=== PATIENT | male | born 1950 | race Caucasian/White ===

== ENCOUNTER 2017-06-20 22:27 | Inpatient (IN) | payer MEDICARE, OTHER ==
--- NOTE | 2017-06-20 22:48 | ED Physician Chart ---
ED Chief Complaint/HPI - Patient Information Date Seen:: 06/20/17 Time Seen:: 10:30 Chief Complaint:: Agitation History of Present Illness:: onset x one day of agitation and inappropriate behavior; no report of trauma, H/ As, neck pain, C/P, SOB, Abd. Pain, A/N/V/D/C, fever, chills, SIs, or urinary s/ s Allergies:: Allergies Allergy/AdvReac Type Severity Reaction Status Date / Time No Known Allergies Allergy Verified 06/20/17 22:36 Historian:: Patient, EMS Review:: Nurse's Note Reviewed, Old Chart Reviewed, EMS run form Reviewed ED Review of Systems - Review of Systems General/Constitutional: No fever, No chills, No weight loss, No weakness, No diaphoresis, No edema, No loss of appetite Skin: No skin lesions, No rash, No bruising Head: No headache, No light-headedness Eyes: No loss of vision, No pain, No diplopia ENT: No earache, No nasal drainage, No sore throat, No tinnitus Neck: No neck pain, No swelling, No thyromegaly, No stiffness, No mass noted Cardio Vascular: No chest pain, No palpitations, No PND, No orthopnea, No edema Pulmonary: No SOB, No cough, No sputum, No wheezing GI: No nausea, No vomiting, No diarrhea, No pain, No melena, No hematochezia, No constipation, No hematemesis G/U: No dysuria, No frequency, No hematuria, No nacturia Musculoskeletal: No bone or joint pain, No back pain, No muscle pain Endocrine: No polyuria, No polydipsia Psychiatric: Prior psych history, No depression, Anxiety, No suicidal ideation, No homicidal ideation, No auditory hallucination, No visual hallucination Hematopoietic: No bruising, No lymphadenopathy Allergic/Immuno: No urticaria, No angioedema Neurological: No syncope, No focal symptoms, No weakness, No paresthesia, No headache, No seizure, No dizziness, No confusion, No vertigo ED Past Medical History - Past Medical History Obtainable: Yes Past Medical History: HTN, DM, Dyslipidemia Family History: Diabetes Melitus, HTN Social History: Non Smoker, No Alcohol, No Drug Use, Single, Care Facility Surgical History: None Psychiatricy History: Bipolar Medication: Reviewed Family Medical History - Family Member Mother History Unknown: Yes Age: 67 Ethnicity: Hx Family Cancer: No Hx Family Coronary Artery Disease: No Hx Family Congestive Heart Failure: No Hx Family Hypertension: Yes Hx Family Stroke: No Hx Family Diabetes: Yes Hx Family Seizures: No Hx Family Dementia: Yes Hx Family AIDS: (UNKNOWN) Hx Family HIV: No Hx Family COPD: No Hx Family Hepatitis: No Hx Family Psychiatric Problems: (UNKNOWN) Hx Family Tuberculosis: No ED Physical Exam - Physical Examination General/Constitutional: Awake, Well-developed, well-nourished, Alert, No distress, GCS 15, Non-toxic appearing, Ambulatory Head: Atraumatic Eyes: Lids, conjuctiva normal, PERRL, EOMI Skin: Nl inspection, No rash, No skin lesions, No ecchymosis, Well hydrated, No lymphadenopathy ENMT: External ears, nose nl, TM canals nl, Nasal exam nl, Lips, teeth, gums nl , Oropharynx nl, Tonsils nl Neck: Nontender, Full ROM w/o pain, No JVD, No nuchal rigidity, No bruit, No mass, No stridor Respiratory: Nl effort/Exclusion, Clear to Auscultation, No Wheeze/Rhonchi/Rales Cardio Vascular: RRR, No murmur, gallop, rubs, NL S1 S2, Carotid/Femoral/Distal pulses equal bilaterally GI: No tenderness/rebounding/guarding, No organomegaly, No hernia, Normal BS's, Nondistended, No mass/bruits, No McBurney tenderness : No CVA tenderness Extremities: No tenderness or effusion, Full ROM, normal strength in all extremities, No edema, Normal digits & nails Neuro/Psych: Alert/oriented, DTR's symmetric, Normal sensory exam, Normal motor strength, Judgement/insight normal, Mood normal, Normal gait, No focal deficits Other Neuro/Psych comments:: + Psychomotor Agitation; no SIs; Mood/Affect: Labile Misc: Normal back, No paraspinal tenderness ED Labs/Radiology/EKG Results - Lab Results Comments:: Glucose: 261; Na+: 132 - EKG Interpretations EKG Time:: 23:00 Rate & Rhythm: 64; NSR Comments:: non-specific st-t changes ED Septic Shock - . Is Septic Shock (SBP<90, OR Lactate>4 mmol\L) present?: No ED Reassessment (Disposition) - Reassessment Reassessment Condition:: Improved - Diagnosis Diagnosis:: Dx: DM; Hyperglycemia; Hyponatremia; Agitation; Psychosis; Medical Clearance; Bipolar Disorder - Aftercare/Follow up Instructions Aftercare/Follow-Up Instructions:: Counseled pt regarding lab results/diagnosis & need follow up, Counseled pt & family regarding lab results/diagnosis & need follow up - Patient Disposition Discharge/Transfer:: Acute Care w/in this hosp Admitted to:: [facility] Condition at Disposition:: Stable, Improved ED Discharge Plan - Patient Disposition Admit/Discharge/Transfer: Other Care w/in this hosp Condition at Disposition: Unchanged
[2017-06-20 23:02] LABS: % BASOPHILS 0.3 % (0.0-2.0); % EOSINOPHILS 3.6 % (0.0-5.0); % LYMPHOCYTES 20.4 % (20.0-50.0); % MONOCYTES 3.7 % (2.0-10.0); EOSINOPHILE ABSOLUTE 0.4 Th/cmm (0.1-0.4); HEMATOCRIT 44.6 % (41.0-60); HEMOGLOBIN 14.7 gm/dL (12-16); LYMPHOCYTE ABSOLUTE 2.2 Th/cmm (1.5-3.0); MEAN CELL VOLUME 82.3 fl (80-99); MEAN CORPUSCULAR HEMOGLOBIN 27.1 pg (27.0-31.0); MEAN CORPUSCULAR HGB CONC 32.9 pg (28.0-36.0); MEAN PLATELET VOLUME 6.8 fl; MONOCYTE ABSOLUTE 0.4 Th/cmm (0.3-1.0); NEUTROPHILE ABSOLUTE 7.7 Th/cmm (1.8-8.0); PLATELET COUNT 346 Th/cmm (150-400); RED BLOOD COUNT 5.42 Mil/cmm (3.80-5.80); RED CELL DISTRIBUTION WIDTH 13.3 % (11.5-20.0); WHITE BLOOD COUNT 10.7 Th/cmm (4.8-10.8)
[2017-06-20 23:20] LABS: ACETAMINOPHEN < 10.0 ug/mL (10.0-30.0); ALB/GLOB RATIO 1.3 (1.0-1.8); ALBUMIN 3.6 gm/dL (4.2-5.5); ALKALINE PHOSPHATASE 80 U/L (34-104); ANION GAP 9.7 (7.0-16.0); BILIRUBIN,TOTAL 0.6 mg/dL (0.3-1.0); BUN - UREA NITROGEN 12 mg/dL (7-25); CALCIUM SERUM 9.1 mg/dL (8.6-10.3); CARBON DIOXIDE 25.3 mEq/L (21.0-31.0); CHLORIDE 101 mEq/L (98-107); CHOLESTEROL 174 mg/dL (<200); CREATININE - SERUM 0.8 mg/dL (0.7-1.3); GFR AFRICAN-AMERICAN > 60.0 ml/min (>90); GFR NON AFRICAN-AMERICAN > 60.0 ml/min; GLUCOSE 261 mg/dL (70-105); HDL -HIGH DENSITY LIPOPROTEIN 42 mg/dL (23-92); SALICYLATES (ASPIRIN) < 25.0 mg/L (30.0-100.0); SGOT 7 U/L (13-39); SGPT/ALT 9 U/L (7-52); SODIUM SERUM 132 mEq/L (136-145); TOTAL PROTEIN,SERUM 6.4 gm/dL (6.0-8.3); TRIGLYCERIDES 138 mg/dL (<150)
[2017-06-20 23:41] LABS: URINE MICROSCOPIC INDICATED? YES; URINE SOURCE CLEAN C
[2017-06-20 23:43] LABS: URINE BILIRUBIN NEGATIVE (NEGATIVE); URINE BLOOD NEGATIVE (NEGATIVE); URINE GLUCOSE (UA) >=1000 mg/dL (NEGATIVE); URINE KETONE NEGATIVE (NEGATIVE); URINE LEUKOCYTE ESTERASE NEGATIVE (NEGATIVE); URINE NITRATE NEGATIVE (NEGATIVE); URINE PH 5.5 (4.6 - 8.0); URINE PROTEIN NEGATIVE (NEGATIVE)
[2017-06-20 23:49] VITALS: BP 141/76
[2017-06-20 23:52] LABS: URINE CLARITY CLEAR (CLEAR); URINE COLOR YELLOW; URINE EPITHELIAL CELLS OCCASIONAL /lpf (FEW); URINE RBC 0-2 /hpf (0-5); URINE WBC 0-2 /hpf (0-5)
[2017-06-20 23:53] LABS: URINE BACTERIA OCCASIONAL /hpf (NONE SEEN)
[2017-06-20 23:59] LABS: AMPHETAMINE URINE NEGATIVE (NEGATIVE); BARBITURATES URINE NEGATIVE (NEGATIVE); BENZODIAZEPINES QUAL URINE NEGATIVE (NEGATIVE); CANNABINOID THC NEGATIVE (NEGATIVE); COCAINE METABOLITE QUAL URINE NEGATIVE (NEGATIVE); METHADONE URINE NEGATIVE (NEGATIVE); METHAMPHETAMINES QUAL URINE NEGATIVE (NEGATIVE); OPIATES (MORPHINE) QUAL. URINE NEGATIVE (NEGATIVE); PHENCYCLIDINE (PCP) URINE NEGATIVE (NEGATIVE); TRICYCLICS (TCA) QUAL. URINE NEGATIVE (NEGATIVE)
[2017-06-21] MEDS ORDERED: Magnesium Hydroxide (MOM) 30 mL UDC PO PRN (00:50)
[2017-06-21] MEDS ORDERED: Dextrose 50% 50 mL Abboject IVP PRN (01:14)
[2017-06-21] MEDS: INSULIN ASPART SLIDING SCALE 100 UNITS/ML UNIT SUBQ SCH ×4 (06:31→21:16)
[2017-06-21] MEDS: Insulin Detemir 100 units/mL 10mL Vial SUBQ SCH ×2 (09:20→21:15)
--- NOTE | 2017-06-21 13:50 | History & Physical ---
ADMIT DATE: 06/21/2017 CHIEF COMPLAINT: Admitted to Psych Unit. HISTORY OF PRESENT ILLNESS: This is a 67-year-old male with history of obesity, diabetes, and hypertension. The patient was admitted secondary to complaints ____. The patient denies any fever. No chest pain. The patient is a best historian. PAST MEDICAL HISTORY: As mentioned in history of present illness. PAST SURGICAL HISTORY: Status post hip surgery. ALLERGIES: No known drug allergies. MEDICATIONS: The patient on Tylenol, vitamin D3, Colace, insulin sliding scale, Lantus, metformin, Zoloft. FAMILY HISTORY: Noncontributory. SOCIAL HISTORY: The patient lives in halfway. The patient requiring 24-hour total care. Nonsmoker, nondrinker. The patient one time with 3 children. REVIEW OF SYSTEMS: GENERAL: Complains not feeling well. HEAD, EYES, EARS, NOSE, AND THROAT: No blurred vision or pain. LUNGS: No history of COPD. The patient denies smoking. HEART: The patient with hypertension, diabetes. ABDOMEN: No nausea, vomiting, pain. GENITOURINARY: The patient denies increased frequency or dysuria. NEUROLOGIC: No headache, seizure, syncope secondary to the above. PHYSICAL EXAMINATION: VITAL SIGNS: Blood pressure ____, pulse 109, pulse 50, temperature 99. GENERAL: Elderly male, obese. NECK: Supple. No mass. LUNGS: Equal breath sounds, few rhonchi. HEART: Regular rate and rhythm with systolic ejection murmur. ABDOMEN: Soft, globular. EXTREMITIES: Positive excoriations. LABORATORY DATA: Hemoglobin 14, platelets 246. Sodium 135.0. BUN 12, creatinine 0.8, blood sugar 261. Albumin 3.6. ASSESSMENT AND PLAN: Diabetes, obesity, hyponatremia, low albumin, hypertension, cardiomegaly, schizoaffective disorder, hypercholesterolemia. Continue the patient on ADA diet and insulin sliding scale. Continue on an angiotensin converting enzyme inhibitor. We will correct electrolyte abnormalities. Continue with current care and follow consult recommendations. JOB# [id number]
[2017-06-21 18:24] LABS: A1C % 8.5 % (4.0-6.0)
--- NOTE | 2017-06-22 00:05 | Psychosocial Evaluation ---
DATE OF SERVICE: 06/20/2017 IDENTIFYING DATA: The patient is a 67-year-old male, resident of [facility]. Information obtained by directly interviewing the patient as well as reviewing the admission papers and they are reliable. JUSTIFICATION OF HOSPITALIZATION: The patient is admitted here on a voluntary basis in view of his aggressive behavior. CHIEF COMPLAINT: "I do not understand why they have to send me in here." HISTORY OF PRESENT ILLNESS: This is the first psychiatric hospitalization to [facility] for this patient. The patient is reported to be very agitated, screaming and yelling and has been getting into other people's rooms and has been trying to steal their food. The patient could not be contained at a lower level of care and has been getting easily aggressive. Sleep and appetite prior to the hospitalization are reported to be fair. PAST PSYCHIATRIC HISTORY: None. MEDICAL HISTORY AND PHYSICAL EXAMINATION: Requested and done by Dr. Burciaga. SUBSTANCE ABUSE HISTORY: The patient denies use of any drugs or alcohol. STRENGTH AND ASSETS: The patient seems to be motivated. MENTAL STATUS EXAMINATION: The patient is a 67-year-old, looking his stated age, superficially cooperative. Eye contact is poor. Mood is irritable. Affect is constricted. Insight and judgment are noted to be still impaired. Impulse control is noted to be poor. Coping skills are also noted to be very poor. The patient is stating that he could not figure it out why he has to be here. The patient is reported to have been treated with Zoloft for his depression. The patient is reported to be compliant with the medication, but the patient is stating that the medication has not been working and the dose has been reviewed, it is only 25 mg and hence it is decided to increase the dose to 50 mg and follow the patient with supportive therapy. The patient is alert and oriented x 3 at this time. The patient is not suicidal, but he has been getting very aggressive. DIAGNOSTIC IMPRESSION: AXIS I: Major depressive disorder, recurrent and moderate. AXIS II: None. AXIS III: As per Dr. Burciaga. IMMEDIATE TREATMENT PLAN: The patient is going to be observed on inpatient unit, provided with supportive psychotherapy. The patient is going to be closely monitored. Once stabilized, the patient is going to be discharged to [facility] to be followed up on an outpatient basis. JOB# [id number]
[2017-06-22] MEDS: INSULIN ASPART SLIDING SCALE 100 UNITS/ML UNIT SUBQ SCH ×4 (06:34→20:20)
[2017-06-22] MEDS: Insulin Detemir 100 units/mL 10mL Vial SUBQ SCH ×2 (08:53→20:21)
--- NOTE | 2017-06-22 13:32 | Internal Medicine Prog Note ---
Internal Medicine Subjective - Subjective Patient seen and examined:: with staff, chart reviewed Patient is:: awake, verbal, interactive Patient Complaints of:: congestion Per staff patient has:: no adverse event, no episodes of fall, eating well, combative, tolerating meds Internal Medicine Objective - Results Result Diagrams: 06/20/17 22:53 06/20/17 22:53 Recent Labs: Laboratory Last Values WBC 10.7 Th/cmm (4.8-10.8) 06/20/17 22:53 RBC 5.42 Mil/cmm (3.80-5.80) 06/20/17 22:53 Hgb 14.7 gm/dL (12-16) 06/20/17 22:53 Hct 44.6 % (41.0-60) 06/20/17 22:53 MCV 82.3 fl (80-99) 06/20/17 22:53 MCH 27.1 pg (27.0-31.0) 06/20/17 22:53 MCHC Differential 32.9 pg (28.0-36.0) 06/20/17 22:53 RDW 13.3 % (11.5-20.0) 06/20/17 22:53 Plt Count 346 Th/cmm (150-400) 06/20/17 22:53 MPV 6.8 fl 06/20/17 22:53 Neutrophils % 72.0 % (40.0-80.0) 06/20/17 22:53 Lymphocytes % 20.4 % (20.0-50.0) 06/20/17 22:53 Monocytes % 3.7 % (2.0-10.0) 06/20/17 22:53 Eosinophils % 3.6 % (0.0-5.0) 06/20/17 22:53 Basophils % 0.3 % (0.0-2.0) 06/20/17 22:53 Sodium 132 mEq/L (136-145) L 06/20/17 22:53 Potassium 4.0 mEq/L (3.5-5.1) 06/20/17 22:53 Chloride 101 mEq/L (98-107) 06/20/17 22:53 Carbon Dioxide 25.3 mEq/L (21.0-31.0) 06/20/17 22:53 Anion Gap 9.7 (7.0-16.0) 06/20/17 22:53 BUN 12 mg/dL (7-25) 06/20/17 22:53 Creatinine 0.8 mg/dL (0.7-1.3) 06/20/17 22:53 Est GFR ( Amer) > 60.0 ml/min (>90) 06/20/17 22:53 Est GFR (Non-Af Amer) > 60.0 ml/min 06/20/17 22:53 BUN/Creatinine Ratio 15.0 06/20/17 22:53 Glucose 261 mg/dL (70-105) H 06/20/17 22:53 POC Glucose 285 MG/DL (70 - 105) H 06/22/17 11:24 Hemoglobin A1c % 8.5 % (4.0-6.0) H 06/20/17 22:53 Calcium 9.1 mg/dL (8.6-10.3) 06/20/17 22:53 Total Bilirubin 0.6 mg/dL (0.3-1.0) 06/20/17 22:53 AST 7 U/L (13-39) L 06/20/17 22:53 ALT 9 U/L (7-52) 06/20/17 22:53 Alkaline Phosphatase 80 U/L (34-104) 06/20/17 22:53 Total Protein 6.4 gm/dL (6.0-8.3) 06/20/17 22:53 Albumin 3.6 gm/dL (4.2-5.5) L 06/20/17 22:53 Globulin 2.8 gm/dL 06/20/17 22:53 Albumin/Globulin Ratio 1.3 (1.0-1.8) 06/20/17 22:53 Triglycerides 138 mg/dL (<150) 06/20/17 22:53 Cholesterol 174 mg/dL (<200) 06/20/17 22:53 LDL Cholesterol Direct 118 mg/dL (75-193) 06/20/17 22:53 HDL Cholesterol 42 mg/dL (23-92) 06/20/17 22:53 TSH 2.62 uIU/ml (0.34-5.60) 06/20/17 22:53 Urine Source CLEAN C 06/20/17 23:25 Urine Color YELLOW 06/20/17 23:25 Urine Clarity CLEAR (CLEAR) 06/20/17 23:25 Urine pH 5.5 (4.6 - 8.0) 06/20/17 23:25 Ur Specific [place] >= 1.030 (1.005-1.030) 06/20/17 23:25 Urine Protein NEGATIVE mg/dL (NEGATIVE) 06/20/17 23:25 Urine Glucose (UA) >=1000 mg/dL (NEGATIVE) H 06/20/17 23:25 Urine Ketones NEGATIVE mg/dL (NEGATIVE) 06/20/17 23:25 Urine Blood NEGATIVE (NEGATIVE) 06/20/17 23:25 Urine Nitrate NEGATIVE (NEGATIVE) 06/20/17 23:25 Urine Bilirubin NEGATIVE (NEGATIVE) 06/20/17 23: Urine Urobilinogen 1.0 E.U./dL (0.2 - 1.0) 06/20/17 23:25 Ur Leukocyte Esterase NEGATIVE (NEGATIVE) 06/20/17 23:25 Urine RBC 0-2 /hpf (0-5) H 06/20/17 23:25 Urine WBC 0-2 /hpf (0-5) 06/20/17 23:25 Ur Epithelial Cells OCCASIONAL /lpf (FEW) 06/20/17 23:25 Urine Bacteria OCCASIONAL /hpf (NONE SEEN) 06/20/17 23:25 Urine Mucus FEW /lpf (FEW) 06/20/17 23:25 Salicylates < 25.0 mg/L (30.0-100.0) L 06/20/17 22:53 Urine Opiates Screen NEGATIVE (NEGATIVE) 06/20/17 23:25 Urine Methadone Screen NEGATIVE (NEGATIVE) 06/20/17 23: Acetaminophen < 10.0 ug/mL (10.0-30.0) L 06/20/17 22:53 Ur Barbiturates Screen NEGATIVE (NEGATIVE) 06/20/17 23:25 Ur Tricyclics Screen NEGATIVE (NEGATIVE) 06/20/17 23:25 Ur Phencyclidine Scrn NEGATIVE (NEGATIVE) 06/20/17 23:25 Amphetamines Screen NEGATIVE (NEGATIVE) 06/20/17 23:25 U Methamphetamines Scrn NEGATIVE (NEGATIVE) 06/20/17 23:25 U Benzodiazepines Scrn NEGATIVE (NEGATIVE) 06/20/17 23:25 U Cocaine Metab Screen NEGATIVE (NEGATIVE) 06/20/17 23:25 U Cannabinoids Screen NEGATIVE (NEGATIVE) 06/20/17 23:25 Ethyl Alcohol < 10 mg/dL (0-10) 06/20/17 22:53 RPR NONREACTIVE (NONREACTIVE) 06/20/17 22:53 - Physical Exam Vitals and I&O: Vital Signs Temp 97.2 F 06/22/17 06:34 Pulse 64 06/22/17 06:34 Resp 18 06/22/17 08:00 BP 117/61 06/22/17 06:34 Pulse Ox 96 06/22/17 06:34 Intake & Output 06/21/17 06/22/17 06/22/17 18:59 06:59 18:59 Intake Total 1200 120 Output Total 0 Balance 1200 120 Intake: Oral 1200 120 Output: Stool 0 Other: # Voids 3 3 Active Medications: Current Medications Acetaminophen (Tylenol) 650 mg PO Q4HR PRN PRN Reason: Pain or Fever >101 Stop: 08/20/17 00:49 Cholecalciferol (Vitamin D3) 1,000 iu PO DAILY [facility] Stop: 08/20/17 08:59 Last Admin: 06/22/17 08:54 Dose: 1,000 iu Dextrose (D50w) 50 ml IVP PRN PRN PRN Reason: HYPOGLYCEMIA LESS THAN 70 Stop: 08/20/17 01:13 Docusate Sodium (Colace) 100 mg PO BID [facility] Stop: 08/20/17 08:59 Last Admin: 06/22/17 08:54 Dose: 100 mg Insulin Aspart (Novolog Insulin Sliding Scale) 0 units SUBQ ACHS [facility] PRN Reason: Protocol Stop: 08/20/17 07:29 Last Admin: 06/22/17 11:32 Dose: 6 units Insulin Detemir (Levemir Insulin) 20 units SUBQ Q12HR [facility] Stop: 08/20/17 08:59 Last Admin: 06/22/17 08:53 Dose: 20 units Lorazepam (Ativan) 0.5 mg PO Q6HR PRN; Protocol PRN Reason: Anxiety Stop: 07/21/17 00:29 Magnesium Hydroxide (Milk Of Magnesia) 30 ml PO DAILY PRN PRN Reason: Constipation Stop: 08/20/17 00:49 Metformin HCl (Glucophage) 1,000 mg PO BIDWM [facility] Stop: 08/20/17 07:59 Last Admin: 06/22/17 08:54 Dose: 1,000 mg Sertraline HCl (Zoloft) 50 mg PO DAILY [facility] PRN Reason: Protocol Stop: 08/20/17 19:01 Last Admin: 06/22/17 08:54 Dose: 50 mg Zolpidem Tartrate (Ambien) 5 mg PO HSMR1 PRN PRN Reason: Insomnia Stop: 08/20/17 00:29 General: demented HEENT: NC/AT, PERRLA, poor dentition Neck: Supple, No JVD, No thyromegaly Lungs: CTAB Cardiovascular: RRR, Normal S1, Normal S2 Abdomen: soft, non-tender, globular, positive bowel sound Extremities: excoriation Neurological: no change, disorganized Internal Medicine Assmt/Plan - Assessment Assessment: ASSESSMENT AND PLAN: Diabetes, obesity, hyponatremia, low albumin, hypertension, cardiomegaly, schizoaffective disorder, hypercholesterolemia. - Plan Plan: Continue the patient on ADA diet and insulin sliding scale. Continue on an angiotensin converting enzyme inhibitor. We will correct electrolyte abnormalities. Continue with current care and follow consult recommendations. Nutritional Asmnt/Malnutr-PDOC - Dietary Evaluation Malnutrition Findings (Please click <Entered> for more info): Nutritional Asmnt/Malnutrition Start: 06/21/17 14: 23 Text: Status: Complete Freq: Document 06/21/17 14:23 LCHENG (Rec: 06/21/17 14:32 [email or web address] [email or web address]) Nutritional Asmnt/Malnutrition Patient General Information Nutritional Screening High Risk Diagnosis psychosis Pertinent Medical Hx/Surgical Hx HTN, DM, dyslipidemia, bipolar Subjective Information Pt seen sitting in his room having lunch. Pt stated good appetite, no question about current diet, not interested in nutrition infomation about [facility] diet. Current Diet Order/ Nutrition Support [facility]-60gm Pertinent Medications vit D3, colace, novolog, levemir, glucophage Pertinent Labs 06/20 Na 132, glucose 261, AST 7 Nutritional Hx/Data Height 1.63 m Height (Calculated Centimeters) 162.6 Current Weight (lbs) 95.254 kg Weight (Calculated Kilograms) 95.3 Weight (Calculated Grams) 16092.4 [place] Body Weight 130 Body Mass Index (BMI) 36.0 Weight Status Obese GI Symptoms GI Symptoms None Last BM not indicated Skin Integrity/Comment: leonel score 21 Current %PO Good (75-100%) Estimated Nutritional Goals BEE in Kcals: Adj wt of IBW Calories/Kcals/Kg 25-30 Kcals Calculated 5942-3226 Protein: Adj wt of IBW Protein g/k-1.2 Protein Calculated 68-82 Fluid: ml 1700-2040ml (1ml/kcal) Nutritional Problem 1. Problem Problem altered nutrition related labs Etiology hx of DM Signs/Symptoms: glucose 261 Malnutrition Alert Protein-Calorie Malnutrition N/A Is there a minimum of two criteria No selected? Query Text:Check all the applicable criteria. A minimum of two criteria are recommended for diagnosis of either severe or non-severe malnutrition. Intervention/Recommendation Comments 1. Continue with CCHO-60gm diet as ordered. 2. Monitor PO intake, wt, labs and skin integrity 3. F/U as moderate risk in 3-5 days, 06/24-06/26 Expected Outcomes/Goals Expected Outcomes/Goals 1. PO intake to meet at least 75% of nutritional needs. 2. Wt stability, skin to remain intact, labs to approach WNL.
--- NOTE | 2017-06-22 22:53 | Progress Notes ---
DATE: 06/22/2017 PSYCHIATRIC PROGRESS NOTE SUBJECTIVE: Staff was spoken to. The patient is interviewed. Mood is noted to be irritable. Affect is constricted. Insight and judgment at this time are noted to be very much impaired. Impulse control seems to be poor. Coping skills are also noted to be very poor. The patient has been having difficult time to cope with the stress. The patient is reported to have been getting into other people's rooms and then trying to steal the food and the patient needs to be redirected. ASSESSMENT: The patient is still impulsive. PLAN: To continue the patient with the supportive therapy and closely monitor the patient and I encourage him to comply with the treatment. The patient is currently on the sertraline, which is increased to 50 mg and the patient is going to be closely monitored. If the impulsivity continues, a low dose of an antipsychotic medication is going to be started. JOB# [id number]
--- NOTE | 2017-06-23 06:54 | Consultation ---
DATE OF CONSULTATION: 06/22/2017 REFERRING PHYSICIAN: Rosa White MD TYPE OF CONSULTATION: Psychology. HISTORY OF PRESENT ILLNESS: The patient is a 67-year-old male. The patient is a resident of [facility]. The following is by review of the medical record as well as by the patient's self report. The patient is being admitted due to aggressive behavior at his facility. Upon interview, the patient states that he does not understand why he has been hospitalized or sent to the geropsychiatric unit. The patient presents as easily agitated with episodes of screaming and yelling. According to staff, the patient has been wandering into other people's rooms looking for food. The patient was unable to verbally contract for safety for no self-harm or harm to others. PAST MEDICAL HISTORY: Please see history and physical by Dr. Burciaga. PAST PSYCHIATRIC HISTORY: Unknown at this time. Records are unavailable. SUBSTANCE ABUSE HISTORY: The patient denied any history of alcohol, illicit drugs, or tobacco use or abuse. PSYCHOSOCIAL HISTORY: The patient did not answer questions about occupational or educational history. 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 The patient denied any current legal problems. The patient denied any history of physical or sexual abuse. MENTAL STATUS EXAMINATION: The patient appears to be his stated age. The patient's attitude is superficially cooperative. Eye contact is poor. Mood is irritable. Affect is constricted. Thought process shows to be confused. There is some evidence of paranoid ideation. The patient denied any auditory or visual hallucinations. The patient continued to ask why he had been hospitalized. Sensorium is alert and oriented to self only. The patient's behavior has been easily agitated and difficult to redirect. Impulse control is inadequate. Concentration is fair to poor. The patient was able to understand the clinical interview questions. However, the patient declined to participate in the memory evaluation. The patient did not participate in the interpretation of proverbs. The patient finally denied any suicidal ideation or plan or intention. Insight is poor. Judgment is compromised. DIAGNOSTIC IMPRESSION: AXIS I: Major depressive disorder, recurrent, moderate. AXIS II: Deferred. AXIS III: Please see history and physical by Dr. Burciaga. TREATMENT PLAN: The patient has been seen by Dr. White for psychiatric evaluation and for the management of the patient's psychotropic medications. We will provide supportive psychotherapy to include coping strategies for phase of life issues. We will provide cognitive behavioral therapy to reduce the patient's depression. We will provide motivational enhancement for the patient to become compliant and stay compliant with all aspects of his care and treatment. We will provide de-escalation and limit setting as well as emotional and self regulation for the patient to verbalize his concerns versus acting out in anger outbursts and yelling episodes. We will continue to provide supportive therapy throughout the patient's hospital stay. Thank you, Dr. White for this consult and the opportunity to participate with you in this patient's care. JOB# [id number] CLAUDIO
[2017-06-23] MEDS: INSULIN ASPART SLIDING SCALE 100 UNITS/ML UNIT SUBQ SCH ×4 (07:08→21:26)
[2017-06-23] MEDS: Insulin Detemir 100 units/mL 10mL Vial SUBQ SCH ×2 (08:22→21:27)
--- NOTE | 2017-06-23 12:36 | Internal Medicine Prog Note ---
Internal Medicine Subjective - Subjective Patient seen and examined:: with staff, chart reviewed Patient is:: awake, verbal, interactive Patient Complaints of:: congestion Per staff patient has:: no adverse event, no episodes of fall, eating well, combative, tolerating meds Internal Medicine Objective - Results Result Diagrams: 06/20/17 22:53 06/20/17 22:53 Recent Labs: Laboratory Last Values WBC 10.7 Th/cmm (4.8-10.8) 06/20/17 22:53 RBC 5.42 Mil/cmm (3.80-5.80) 06/20/17 22:53 Hgb 14.7 gm/dL (12-16) 06/20/17 22:53 Hct 44.6 % (41.0-60) 06/20/17 22:53 MCV 82.3 fl (80-99) 06/20/17 22:53 MCH 27.1 pg (27.0-31.0) 06/20/17 22:53 MCHC Differential 32.9 pg (28.0-36.0) 06/20/17 22:53 RDW 13.3 % (11.5-20.0) 06/20/17 22:53 Plt Count 346 Th/cmm (150-400) 06/20/17 22:53 MPV 6.8 fl 06/20/17 22:53 Neutrophils % 72.0 % (40.0-80.0) 06/20/17 22:53 Lymphocytes % 20.4 % (20.0-50.0) 06/20/17 22:53 Monocytes % 3.7 % (2.0-10.0) 06/20/17 22:53 Eosinophils % 3.6 % (0.0-5.0) 06/20/17 22:53 Basophils % 0.3 % (0.0-2.0) 06/20/17 22:53 Sodium 132 mEq/L (136-145) L 06/20/17 22:53 Potassium 4.0 mEq/L (3.5-5.1) 06/20/17 22:53 Chloride 101 mEq/L (98-107) 06/20/17 22:53 Carbon Dioxide 25.3 mEq/L (21.0-31.0) 06/20/17 22:53 Anion Gap 9.7 (7.0-16.0) 06/20/17 22:53 BUN 12 mg/dL (7-25) 06/20/17 22:53 Creatinine 0.8 mg/dL (0.7-1.3) 06/20/17 22:53 Est GFR ( Amer) > 60.0 ml/min (>90) 06/20/17 22:53 Est GFR (Non-Af Amer) > 60.0 ml/min 06/20/17 22:53 BUN/Creatinine Ratio 15.0 06/20/17 22:53 Glucose 261 mg/dL (70-105) H 06/20/17 22:53 POC Glucose 122 MG/DL (70 - 105) H 06/23/17 11:12 Hemoglobin A1c % 8.5 % (4.0-6.0) H 06/20/17 22:53 Calcium 9.1 mg/dL (8.6-10.3) 06/20/17 22:53 Total Bilirubin 0.6 mg/dL (0.3-1.0) 06/20/17 22:53 AST 7 U/L (13-39) L 06/20/17 22:53 ALT 9 U/L (7-52) 06/20/17 22:53 Alkaline Phosphatase 80 U/L (34-104) 06/20/17 22:53 Total Protein 6.4 gm/dL (6.0-8.3) 06/20/17 22:53 Albumin 3.6 gm/dL (4.2-5.5) L 06/20/17 22:53 Globulin 2.8 gm/dL 06/20/17 22:53 Albumin/Globulin Ratio 1.3 (1.0-1.8) 06/20/17 22:53 Triglycerides 138 mg/dL (<150) 06/20/17 22:53 Cholesterol 174 mg/dL (<200) 06/20/17 22:53 LDL Cholesterol Direct 118 mg/dL (75-193) 06/20/17 22:53 HDL Cholesterol 42 mg/dL (23-92) 06/20/17 22:53 TSH 2.62 uIU/ml (0.34-5.60) 06/20/17 22:53 Urine Source CLEAN C 06/20/17 23:25 Urine Color YELLOW 06/20/17 23:25 Urine Clarity CLEAR (CLEAR) 06/20/17 23:25 Urine pH 5.5 (4.6 - 8.0) 06/20/17 23:25 Ur Specific [place] >= 1.030 (1.005-1.030) 06/20/17 23:25 Urine Protein NEGATIVE mg/dL (NEGATIVE) 06/20/17 23:25 Urine Glucose (UA) >=1000 mg/dL (NEGATIVE) H 06/20/17 23:25 Urine Ketones NEGATIVE mg/dL (NEGATIVE) 06/20/17 23:25 Urine Blood NEGATIVE (NEGATIVE) 06/20/17 23:25 Urine Nitrate NEGATIVE (NEGATIVE) 06/20/17 23:25 Urine Bilirubin NEGATIVE (NEGATIVE) 06/20/17 23: Urine Urobilinogen 1.0 E.U./dL (0.2 - 1.0) 06/20/17 23:25 Ur Leukocyte Esterase NEGATIVE (NEGATIVE) 06/20/17 23:25 Urine RBC 0-2 /hpf (0-5) H 06/20/17 23:25 Urine WBC 0-2 /hpf (0-5) 06/20/17 23:25 Ur Epithelial Cells OCCASIONAL /lpf (FEW) 06/20/17 23:25 Urine Bacteria OCCASIONAL /hpf (NONE SEEN) 06/20/17 23:25 Urine Mucus FEW /lpf (FEW) 06/20/17 23:25 Salicylates < 25.0 mg/L (30.0-100.0) L 06/20/17 22:53 Urine Opiates Screen NEGATIVE (NEGATIVE) 06/20/17 23:25 Urine Methadone Screen NEGATIVE (NEGATIVE) 06/20/17 23: Acetaminophen < 10.0 ug/mL (10.0-30.0) L 06/20/17 22:53 Ur Barbiturates Screen NEGATIVE (NEGATIVE) 06/20/17 23:25 Ur Tricyclics Screen NEGATIVE (NEGATIVE) 06/20/17 23:25 Ur Phencyclidine Scrn NEGATIVE (NEGATIVE) 06/20/17 23:25 Amphetamines Screen NEGATIVE (NEGATIVE) 06/20/17 23:25 U Methamphetamines Scrn NEGATIVE (NEGATIVE) 06/20/17 23:25 U Benzodiazepines Scrn NEGATIVE (NEGATIVE) 06/20/17 23:25 U Cocaine Metab Screen NEGATIVE (NEGATIVE) 06/20/17 23:25 U Cannabinoids Screen NEGATIVE (NEGATIVE) 06/20/17 23:25 Ethyl Alcohol < 10 mg/dL (0-10) 06/20/17 22:53 RPR NONREACTIVE (NONREACTIVE) 06/20/17 22:53 - Physical Exam Vitals and I&O: Vital Signs Temp 97.3 F 06/23/17 05:17 Pulse 59 06/23/17 05:17 Resp 18 06/23/17 05:17 BP 132/73 06/23/17 05:17 Pulse Ox 94 06/23/17 05:17 Intake & Output 06/22/17 06/23/17 06/23/17 18:59 06:59 18:59 Intake Total 1200 480 Balance 1200 480 Intake: Oral 1200 480 Other: # Voids 2 # Bowel Movements 1 Active Medications: Current Medications Acetaminophen (Tylenol) 650 mg PO Q4HR PRN PRN Reason: Pain or Fever >101 Stop: 08/20/17 00:49 Cholecalciferol (Vitamin D3) 1,000 iu PO DAILY [facility] Stop: 08/20/17 08:59 Last Admin: 06/23/17 08:23 Dose: 1,000 iu Dextrose (D50w) 50 ml IVP PRN PRN PRN Reason: HYPOGLYCEMIA LESS THAN 70 Stop: 08/20/17 01:13 Docusate Sodium (Colace) 100 mg PO BID [facility] Stop: 08/20/17 08:59 Last Admin: 06/23/17 08:23 Dose: 100 mg Insulin Aspart (Novolog Insulin Sliding Scale) 0 units SUBQ ACHS SURAJ PRN Reason: Protocol Stop: 08/20/17 07:29 Last Admin: 06/23/17 11:16 Dose: Not Given Insulin Detemir (Levemir Insulin) 20 units SUBQ Q12HR [facility] Stop: 08/20/17 08:59 Last Admin: 06/23/17 08:22 Dose: 20 units Lorazepam (Ativan) 0.5 mg PO Q6HR PRN; Protocol PRN Reason: Anxiety Stop: 07/21/17 00:29 Magnesium Hydroxide (Milk Of Magnesia) 30 ml PO DAILY PRN PRN Reason: Constipation Stop: 08/20/17 00:49 Metformin HCl (Glucophage) 1,000 mg PO BIDWM [facility] Stop: 08/20/17 07:59 Last Admin: 06/23/17 08:23 Dose: 1,000 mg Quetiapine Fumarate (Seroquel) 12.5 mg PO HS SURAJ PRN Reason: Protocol Stop: 08/22/17 20:59 Sertraline HCl (Zoloft) 50 mg PO DAILY SURAJ PRN Reason: Protocol Stop: 08/20/17 19:01 Last Admin: 06/23/17 08:23 Dose: 50 mg Zolpidem Tartrate (Ambien) 5 mg PO HSMR1 PRN PRN Reason: Insomnia Stop: 08/20/17 00:29 General: demented HEENT: NC/AT, PERRLA, poor dentition Neck: Supple, No JVD, No thyromegaly Lungs: CTAB Cardiovascular: RRR, Normal S1, Normal S2 Abdomen: soft, non-tender, globular, positive bowel sound Extremities: excoriation Neurological: no change, disorganized Internal Medicine Assmt/Plan - Assessment Assessment: ASSESSMENT AND PLAN: Diabetes, obesity, hyponatremia, low albumin, hypertension, cardiomegaly, schizoaffective disorder, hypercholesterolemia. - Plan Plan: Continue the patient on ADA diet and insulin sliding scale. Continue on an angiotensin converting enzyme inhibitor. We will correct electrolyte abnormalities. Continue with current care and follow consult recommendations. Nutritional Asmnt/Malnutr-PDOC - Dietary Evaluation Malnutrition Findings (Please click <Entered> for more info): Nutritional Asmnt/Malnutrition Start: 06/21/17 14: 23 Text: Status: Complete Freq: Document 06/21/17 14:23 LCEVERARDOG (Rec: 06/21/17 14:32 [email or web address]) Nutritional Asmnt/Malnutrition Patient General Information Nutritional Screening High Risk Diagnosis psychosis Pertinent Medical Hx/Surgical Hx HTN, DM, dyslipidemia, bipolar Subjective Information Pt seen sitting in his room having lunch. Pt stated good appetite, no question about current diet, not interested in nutrition infomation about [facility] diet. Current Diet Order/ Nutrition Support [facility]-60gm Pertinent Medications vit D3, colace, novolog, levemir, glucophage Pertinent Labs 06/20 Na 132, glucose 261, AST 7 Nutritional Hx/Data Height 1.63 m Height (Calculated Centimeters) 162.6 Current Weight (lbs) 95.254 kg Weight (Calculated Kilograms) 95.3 Weight (Calculated Grams) 24469.4 [place] Body Weight 130 Body Mass Index (BMI) 36.0 Weight Status Obese GI Symptoms GI Symptoms None Last BM not indicated Skin Integrity/Comment: leonel score 21 Current %PO Good (75-100%) Estimated Nutritional Goals BEE in Kcals: Adj wt of IBW Calories/Kcals/Kg 25-30 Kcals Calculated 0750-5727 Protein: Adj wt of IBW Protein g/k-1.2 Protein Calculated 68-82 Fluid: ml 1700-2040ml (1ml/kcal) Nutritional Problem 1. Problem Problem altered nutrition related labs Etiology hx of DM Signs/Symptoms: glucose 261 Malnutrition Alert Protein-Calorie Malnutrition N/A Is there a minimum of two criteria No selected? Query Text:Check all the applicable criteria. A minimum of two criteria are recommended for diagnosis of either severe or non-severe malnutrition. Intervention/Recommendation Comments 1. Continue with CCHO-60gm diet as ordered. 2. Monitor PO intake, wt, labs and skin integrity 3. F/U as moderate risk in 3-5 days, 06/24-06/26 Expected Outcomes/Goals Expected Outcomes/Goals 1. PO intake to meet at least 75% of nutritional needs. 2. Wt stability, skin to remain intact, labs to approach WNL.
--- NOTE | 2017-06-23 13:31 | Progress Notes ---
DATE: 06/23/2017 SUBJECTIVE: Staff was spoken to. The patient is interviewed. Mood is noted to be irritable. Affect is constricted. The patient is getting easily irritable and angry. The patient needs to be redirected. The patient has been getting into other people's rooms, tries to steal stuff and then the food. The patient has been on sertraline 50 mg and has been able to tolerate. No side effects to the medications are noted. The patient is getting easily paranoid and has been having difficult time to cope with the stress and hence it is decided to add a low dose of the Seroquel 12.5 mg at night time and follow the patient with the supportive therapy. The patient is not ready to be discharged to a lower level of care in view of his irritability and depression. PLAN: To continue the patient with the supportive therapy, encouraged the patient to verbalize the concerns rather than to act out. JOB# [id number]
[2017-06-24] MEDS: INSULIN ASPART SLIDING SCALE 100 UNITS/ML UNIT SUBQ SCH ×4 (06:39→20:44)
[2017-06-24] MEDS: Insulin Detemir 100 units/mL 10mL Vial SUBQ SCH ×2 (08:00→20:45)
--- NOTE | 2017-06-24 16:41 | Internal Medicine Prog Note ---
Internal Medicine Subjective - Subjective Patient seen and examined:: with staff, chart reviewed Patient is:: awake, verbal, interactive Patient Complaints of:: congestion Per staff patient has:: no adverse event, no episodes of fall, eating well, combative, tolerating meds Internal Medicine Objective - Results Result Diagrams: 06/20/17 22:53 06/20/17 22:53 Recent Labs: Laboratory Last Values WBC 10.7 Th/cmm (4.8-10.8) 06/20/17 22:53 RBC 5.42 Mil/cmm (3.80-5.80) 06/20/17 22:53 Hgb 14.7 gm/dL (12-16) 06/20/17 22:53 Hct 44.6 % (41.0-60) 06/20/17 22:53 MCV 82.3 fl (80-99) 06/20/17 22:53 MCH 27.1 pg (27.0-31.0) 06/20/17 22:53 MCHC Differential 32.9 pg (28.0-36.0) 06/20/17 22:53 RDW 13.3 % (11.5-20.0) 06/20/17 22:53 Plt Count 346 Th/cmm (150-400) 06/20/17 22:53 MPV 6.8 fl 06/20/17 22:53 Neutrophils % 72.0 % (40.0-80.0) 06/20/17 22:53 Lymphocytes % 20.4 % (20.0-50.0) 06/20/17 22:53 Monocytes % 3.7 % (2.0-10.0) 06/20/17 22:53 Eosinophils % 3.6 % (0.0-5.0) 06/20/17 22:53 Basophils % 0.3 % (0.0-2.0) 06/20/17 22:53 Sodium 132 mEq/L (136-145) L 06/20/17 22:53 Potassium 4.0 mEq/L (3.5-5.1) 06/20/17 22:53 Chloride 101 mEq/L (98-107) 06/20/17 22:53 Carbon Dioxide 25.3 mEq/L (21.0-31.0) 06/20/17 22:53 Anion Gap 9.7 (7.0-16.0) 06/20/17 22:53 BUN 12 mg/dL (7-25) 06/20/17 22:53 Creatinine 0.8 mg/dL (0.7-1.3) 06/20/17 22:53 Est GFR ( Amer) > 60.0 ml/min (>90) 06/20/17 22:53 Est GFR (Non-Af Amer) > 60.0 ml/min 06/20/17 22:53 BUN/Creatinine Ratio 15.0 06/20/17 22:53 Glucose 261 mg/dL (70-105) H 06/20/17 22:53 POC Glucose 191 MG/DL (70 - 105) H 06/24/17 16:12 Hemoglobin A1c % 8.5 % (4.0-6.0) H 06/20/17 22:53 Calcium 9.1 mg/dL (8.6-10.3) 06/20/17 22:53 Total Bilirubin 0.6 mg/dL (0.3-1.0) 06/20/17 22:53 AST 7 U/L (13-39) L 06/20/17 22:53 ALT 9 U/L (7-52) 06/20/17 22:53 Alkaline Phosphatase 80 U/L (34-104) 06/20/17 22:53 Total Protein 6.4 gm/dL (6.0-8.3) 06/20/17 22:53 Albumin 3.6 gm/dL (4.2-5.5) L 06/20/17 22:53 Globulin 2.8 gm/dL 06/20/17 22:53 Albumin/Globulin Ratio 1.3 (1.0-1.8) 06/20/17 22:53 Triglycerides 138 mg/dL (<150) 06/20/17 22:53 Cholesterol 174 mg/dL (<200) 06/20/17 22:53 LDL Cholesterol Direct 118 mg/dL (75-193) 06/20/17 22:53 HDL Cholesterol 42 mg/dL (23-92) 06/20/17 22:53 TSH 2.62 uIU/ml (0.34-5.60) 06/20/17 22:53 Urine Source CLEAN C 06/20/17 23:25 Urine Color YELLOW 06/20/17 23:25 Urine Clarity CLEAR (CLEAR) 06/20/17 23:25 Urine pH 5.5 (4.6 - 8.0) 06/20/17 23:25 Ur Specific [place] >= 1.030 (1.005-1.030) 06/20/17 23:25 Urine Protein NEGATIVE mg/dL (NEGATIVE) 06/20/17 23:25 Urine Glucose (UA) >=1000 mg/dL (NEGATIVE) H 06/20/17 23:25 Urine Ketones NEGATIVE mg/dL (NEGATIVE) 06/20/17 23:25 Urine Blood NEGATIVE (NEGATIVE) 06/20/17 23:25 Urine Nitrate NEGATIVE (NEGATIVE) 06/20/17 23:25 Urine Bilirubin NEGATIVE (NEGATIVE) 06/20/17 23: Urine Urobilinogen 1.0 E.U./dL (0.2 - 1.0) 06/20/17 23:25 Ur Leukocyte Esterase NEGATIVE (NEGATIVE) 06/20/17 23:25 Urine RBC 0-2 /hpf (0-5) H 06/20/17 23:25 Urine WBC 0-2 /hpf (0-5) 06/20/17 23:25 Ur Epithelial Cells OCCASIONAL /lpf (FEW) 06/20/17 23:25 Urine Bacteria OCCASIONAL /hpf (NONE SEEN) 06/20/17 23:25 Urine Mucus FEW /lpf (FEW) 06/20/17 23:25 Salicylates < 25.0 mg/L (30.0-100.0) L 06/20/17 22:53 Urine Opiates Screen NEGATIVE (NEGATIVE) 06/20/17 23:25 Urine Methadone Screen NEGATIVE (NEGATIVE) 06/20/17 23: Acetaminophen < 10.0 ug/mL (10.0-30.0) L 06/20/17 22:53 Ur Barbiturates Screen NEGATIVE (NEGATIVE) 06/20/17 23:25 Ur Tricyclics Screen NEGATIVE (NEGATIVE) 06/20/17 23:25 Ur Phencyclidine Scrn NEGATIVE (NEGATIVE) 06/20/17 23:25 Amphetamines Screen NEGATIVE (NEGATIVE) 06/20/17 23:25 U Methamphetamines Scrn NEGATIVE (NEGATIVE) 06/20/17 23:25 U Benzodiazepines Scrn NEGATIVE (NEGATIVE) 06/20/17 23:25 U Cocaine Metab Screen NEGATIVE (NEGATIVE) 06/20/17 23:25 U Cannabinoids Screen NEGATIVE (NEGATIVE) 06/20/17 23:25 Ethyl Alcohol < 10 mg/dL (0-10) 06/20/17 22:53 RPR NONREACTIVE (NONREACTIVE) 06/20/17 22:53 - Physical Exam Vitals and I&O: Vital Signs Temp 97.1 F 06/24/17 16:24 Pulse 60 06/24/17 16:24 Resp 19 06/24/17 16:24 BP 127/69 06/24/17 16:24 Pulse Ox 97 06/24/17 16:24 Intake & Output 06/23/17 06/24/17 06/24/17 18:59 06:59 18:59 Intake Total 1700 720 Output Total 4 Balance 1696 720 Intake: Oral 1700 720 Output: Urine 4 Other: # Voids 1 # Bowel Movements 2 Active Medications: Current Medications Acetaminophen (Tylenol) 650 mg PO Q4HR PRN PRN Reason: Pain or Fever >101 Stop: 08/20/17 00:49 Cholecalciferol (Vitamin D3) 1,000 iu PO DAILY [facility] Stop: 08/20/17 08:59 Last Admin: 06/24/17 08:00 Dose: 1,000 iu Dextrose (D50w) 50 ml IVP PRN PRN PRN Reason: HYPOGLYCEMIA LESS THAN 70 Stop: 08/20/17 01:13 Docusate Sodium (Colace) 100 mg PO BID [facility] Stop: 08/20/17 08:59 Last Admin: 06/24/17 08:00 Dose: 100 mg Insulin Aspart (Novolog Insulin Sliding Scale) 0 units SUBQ ACHS SURAJ PRN Reason: Protocol Stop: 08/20/17 07:29 Last Admin: 06/24/17 11:16 Dose: 8 units Insulin Detemir (Levemir Insulin) 20 units SUBQ Q12HR [facility] Stop: 08/20/17 08:59 Last Admin: 06/24/17 08:00 Dose: 20 units Lorazepam (Ativan) 0.5 mg PO Q6HR PRN; Protocol PRN Reason: Anxiety Stop: 07/21/17 00:29 Last Admin: 06/23/17 15:33 Dose: 0.5 mg Magnesium Hydroxide (Milk Of Magnesia) 30 ml PO DAILY PRN PRN Reason: Constipation Stop: 08/20/17 00:49 Metformin HCl (Glucophage) 1,000 mg PO BIDWM SURAJ Stop: 08/20/17 07:59 Last Admin: 06/24/17 07:58 Dose: 1,000 mg Quetiapine Fumarate (Seroquel) 25 mg PO HS SURAJ PRN Reason: Protocol Stop: 08/23/17 13:28 Sertraline HCl (Zoloft) 50 mg PO DAILY SURAJ PRN Reason: Protocol Stop: 08/20/17 19:01 Last Admin: 06/24/17 08:00 Dose: 50 mg Zolpidem Tartrate (Ambien) 5 mg PO HSMR1 PRN PRN Reason: Insomnia Stop: 08/20/17 00:29 General: demented HEENT: NC/AT, PERRLA, poor dentition Neck: Supple, No JVD, No thyromegaly Lungs: CTAB Cardiovascular: RRR, Normal S1, Normal S2 Abdomen: soft, non-tender, globular, positive bowel sound Extremities: excoriation Neurological: no change, disorganized Internal Medicine Assmt/Plan - Assessment Assessment: ASSESSMENT AND PLAN: Diabetes, obesity, hyponatremia, low albumin, hypertension, cardiomegaly, schizoaffective disorder, hypercholesterolemia. - Plan Plan: Continue the patient on ADA diet and insulin sliding scale. Continue on an angiotensin converting enzyme inhibitor. We will correct electrolyte abnormalities. Continue with current care and follow consult recommendations. Nutritional Asmnt/Malnutr-PDOC - Dietary Evaluation Malnutrition Findings (Please click <Entered> for more info): Nutritional Asmnt/Malnutrition Start: 06/21/17 14: 23 Text: Status: Complete Freq: Document 06/21/17 14:23 EVERARDO (Rec: 06/21/17 14:32 EVERARDO [email or web address]) Nutritional Asmnt/Malnutrition Patient General Information Nutritional Screening High Risk Diagnosis psychosis Pertinent Medical Hx/Surgical Hx HTN, DM, dyslipidemia, bipolar Subjective Information Pt seen sitting in his room having lunch. Pt stated good appetite, no question about current diet, not interested in nutrition infomation about [facility] diet. Current Diet Order/ Nutrition Support [facility]-60gm Pertinent Medications vit D3, colace, novolog, levemir, glucophage Pertinent Labs 06/20 Na 132, glucose 261, AST 7 Nutritional Hx/Data Height 1.63 m Height (Calculated Centimeters) 162.6 Current Weight (lbs) 95.254 kg Weight (Calculated Kilograms) 95.3 Weight (Calculated Grams) 44941.4 [place] Body Weight 130 Body Mass Index (BMI) 36.0 Weight Status Obese GI Symptoms GI Symptoms None Last BM not indicated Skin Integrity/Comment: leonel score 21 Current %PO Good (75-100%) Estimated Nutritional Goals BEE in Kcals: Adj wt of IBW Calories/Kcals/Kg 25-30 Kcals Calculated 1899-2940 Protein: Adj wt of IBW Protein g/k-1.2 Protein Calculated 68-82 Fluid: ml 1700-2040ml (1ml/kcal) Nutritional Problem 1. Problem Problem altered nutrition related labs Etiology hx of DM Signs/Symptoms: glucose 261 Malnutrition Alert Protein-Calorie Malnutrition N/A Is there a minimum of two criteria No selected? Query Text:Check all the applicable criteria. A minimum of two criteria are recommended for diagnosis of either severe or non-severe malnutrition. Intervention/Recommendation Comments 1. Continue with CCHO-60gm diet as ordered. 2. Monitor PO intake, wt, labs and skin integrity 3. F/U as moderate risk in 3-5 days, 06/24-06/26 Expected Outcomes/Goals Expected Outcomes/Goals 1. PO intake to meet at least 75% of nutritional needs. 2. Wt stability, skin to remain intact, labs to approach WNL.
--- NOTE | 2017-06-24 16:59 | Progress Notes ---
DATE: 06/24/2017 SUBJECTIVE: Staff was spoken to. The patient is interviewed. Mood is noted to be irritable. Affect is constricted. Insight and judgment is noted to be impaired. Impulse control seems to be poor. Coping skills are noted to be very poor. The patient has been having difficult time to cope with the stress. The patient is still on Seroquel and the patient has been trying to get into other peoples' rooms and has been finding it very difficult to ____ him. The patient has no insight into his illness. The patient is currently depressed on Zoloft and I am going to be increasing the dose on the Seroquel to 25 mg at bedtime. I encouraged the patient to verbalize the concerns rather than to act out. The patient at this time is noted to be psychotic and depressed. PLAN: To continue the patient with the supportive therapy and followup. JOB# [id number]
[2017-06-25] MEDS: INSULIN ASPART SLIDING SCALE 100 UNITS/ML UNIT SUBQ SCH ×4 (06:42→20:32)
[2017-06-25] MEDS: Insulin Detemir 100 units/mL 10mL Vial SUBQ SCH ×2 (09:47→20:26)
--- NOTE | 2017-06-25 11:32 | Internal Medicine Prog Note ---
Internal Medicine Subjective - Subjective Service Date: 06/25/17 Patient is:: awake, verbal, interactive Patient Complaints of:: congestion Per staff patient has:: no adverse event, no episodes of fall, eating well, combative, tolerating meds Internal Medicine Objective - Results Result Diagrams: 06/20/17 22:53 06/20/17 22:53 Recent Labs: Laboratory Last Values WBC 10.7 Th/cmm (4.8-10.8) 06/20/17 22:53 RBC 5.42 Mil/cmm (3.80-5.80) 06/20/17 22:53 Hgb 14.7 gm/dL (12-16) 06/20/17 22:53 Hct 44.6 % (41.0-60) 06/20/17 22:53 MCV 82.3 fl (80-99) 06/20/17 22:53 MCH 27.1 pg (27.0-31.0) 06/20/17 22:53 MCHC Differential 32.9 pg (28.0-36.0) 06/20/17 22:53 RDW 13.3 % (11.5-20.0) 06/20/17 22:53 Plt Count 346 Th/cmm (150-400) 06/20/17 22:53 MPV 6.8 fl 06/20/17 22:53 Neutrophils % 72.0 % (40.0-80.0) 06/20/17 22:53 Lymphocytes % 20.4 % (20.0-50.0) 06/20/17 22:53 Monocytes % 3.7 % (2.0-10.0) 06/20/17 22:53 Eosinophils % 3.6 % (0.0-5.0) 06/20/17 22:53 Basophils % 0.3 % (0.0-2.0) 06/20/17 22:53 Sodium 132 mEq/L (136-145) L 06/20/17 22:53 Potassium 4.0 mEq/L (3.5-5.1) 06/20/17 22:53 Chloride 101 mEq/L (98-107) 06/20/17 22:53 Carbon Dioxide 25.3 mEq/L (21.0-31.0) 06/20/17 22:53 Anion Gap 9.7 (7.0-16.0) 06/20/17 22:53 BUN 12 mg/dL (7-25) 06/20/17 22:53 Creatinine 0.8 mg/dL (0.7-1.3) 06/20/17 22:53 Est GFR ( Amer) > 60.0 ml/min (>90) 06/20/17 22:53 Est GFR (Non-Af Amer) > 60.0 ml/min 06/20/17 22:53 BUN/Creatinine Ratio 15.0 06/20/17 22:53 Glucose 261 mg/dL (70-105) H 06/20/17 22:53 POC Glucose 127 MG/DL (70 - 105) H 06/25/17 05:55 Hemoglobin A1c % 8.5 % (4.0-6.0) H 06/20/17 22:53 Calcium 9.1 mg/dL (8.6-10.3) 06/20/17 22:53 Total Bilirubin 0.6 mg/dL (0.3-1.0) 06/20/17 22:53 AST 7 U/L (13-39) L 06/20/17 22:53 ALT 9 U/L (7-52) 06/20/17 22:53 Alkaline Phosphatase 80 U/L (34-104) 06/20/17 22:53 Total Protein 6.4 gm/dL (6.0-8.3) 06/20/17 22:53 Albumin 3.6 gm/dL (4.2-5.5) L 06/20/17 22:53 Globulin 2.8 gm/dL 06/20/17 22:53 Albumin/Globulin Ratio 1.3 (1.0-1.8) 06/20/17 22:53 Triglycerides 138 mg/dL (<150) 06/20/17 22:53 Cholesterol 174 mg/dL (<200) 06/20/17 22:53 LDL Cholesterol Direct 118 mg/dL (75-193) 06/20/17 22:53 HDL Cholesterol 42 mg/dL (23-92) 06/20/17 22:53 TSH 2.62 uIU/ml (0.34-5.60) 06/20/17 22:53 Urine Source CLEAN C 06/20/17 23:25 Urine Color YELLOW 06/20/17 23:25 Urine Clarity CLEAR (CLEAR) 06/20/17 23:25 Urine pH 5.5 (4.6 - 8.0) 06/20/17 23:25 Ur Specific Angie >= 1.030 (1.005-1.030) 06/20/17 23:25 Urine Protein NEGATIVE mg/dL (NEGATIVE) 06/20/17 23:25 Urine Glucose (UA) >=1000 mg/dL (NEGATIVE) H 06/20/17 23:25 Urine Ketones NEGATIVE mg/dL (NEGATIVE) 06/20/17 23:25 Urine Blood NEGATIVE (NEGATIVE) 06/20/17 23:25 Urine Nitrate NEGATIVE (NEGATIVE) 06/20/17 23:25 Urine Bilirubin NEGATIVE (NEGATIVE) 06/20/17 23:25 Urine Urobilinogen 1.0 E.U./dL (0.2 - 1.0) 06/20/17 23:25 Ur Leukocyte Esterase NEGATIVE (NEGATIVE) 06/20/17 23:25 Urine RBC 0-2 /hpf (0-5) H 06/20/17 23:25 Urine WBC 0-2 /hpf (0-5) 06/20/17 23:25 Ur Epithelial Cells OCCASIONAL /lpf (FEW) 06/20/17 23:25 Urine Bacteria OCCASIONAL /hpf (NONE SEEN) 06/20/17 23:25 Urine Mucus FEW /lpf (FEW) 06/20/17 23:25 Salicylates < 25.0 mg/L (30.0-100.0) L 06/20/17 22:53 Urine Opiates Screen NEGATIVE (NEGATIVE) 06/20/17 23:25 Urine Methadone Screen NEGATIVE (NEGATIVE) 06/20/17 23:25 Acetaminophen < 10.0 ug/mL (10.0-30.0) L 06/20/17 22:53 Ur Barbiturates Screen NEGATIVE (NEGATIVE) 06/20/17 23:25 Ur Tricyclics Screen NEGATIVE (NEGATIVE) 06/20/17 23:25 Ur Phencyclidine Scrn NEGATIVE (NEGATIVE) 06/20/17 23:25 Amphetamines Screen NEGATIVE (NEGATIVE) 06/20/17 23:25 U Methamphetamines Scrn NEGATIVE (NEGATIVE) 06/20/17 23:25 U Benzodiazepines Scrn NEGATIVE (NEGATIVE) 06/20/17 23:25 U Cocaine Metab Screen NEGATIVE (NEGATIVE) 06/20/17 23:25 U Cannabinoids Screen NEGATIVE (NEGATIVE) 06/20/17 23:25 Ethyl Alcohol < 10 mg/dL (0-10) 06/20/17 22:53 RPR NONREACTIVE (NONREACTIVE) 06/20/17 22:53 - Physical Exam Vitals and I&O: Vital Signs Temp 98.0 F 06/25/17 06:03 Pulse 69 06/25/17 06:03 Resp 20 06/25/17 06:03 BP 129/72 06/25/17 06:03 Pulse Ox 95 06/25/17 06:03 Intake & Output 06/24/17 06/25/17 06/25/17 18:59 06:59 18:59 Intake Total 600 600 Balance 600 600 Intake: Oral 600 600 Other: # Voids 4 2 # Bowel Movements 1 2 Stool Characteristics Soft Formed Active Medications: Current Medications Acetaminophen (Tylenol) 650 mg PO Q4HR PRN PRN Reason: Pain or Fever >101 Stop: 08/20/17 00:49 Cholecalciferol (Vitamin D3) 1,000 iu PO DAILY [facility] Stop: 08/20/17 08:59 Last Admin: 06/25/17 09:47 Dose: 1,000 iu Dextrose (D50w) 50 ml IVP PRN PRN PRN Reason: HYPOGLYCEMIA LESS THAN 70 Stop: 08/20/17 01:13 Docusate Sodium (Colace) 100 mg PO BID [facility] Stop: 08/20/17 08:59 Last Admin: 06/25/17 09:46 Dose: 100 mg Insulin Aspart (Novolog Insulin Sliding Scale) 0 units SUBQ ACHS SURAJ PRN Reason: Protocol Stop: 08/20/17 07:29 Last Admin: 06/25/17 06:42 Dose: Not Given Insulin Detemir (Levemir Insulin) 20 units SUBQ Q12HR SURAJ Stop: 08/20/17 08:59 Last Admin: 06/25/17 09:47 Dose: 20 units Lorazepam (Ativan) 0.5 mg PO Q6HR PRN; Protocol PRN Reason: Anxiety Stop: 07/21/17 00:29 Last Admin: 06/23/17 15:33 Dose: 0.5 mg Magnesium Hydroxide (Milk Of Magnesia) 30 ml PO DAILY PRN PRN Reason: Constipation Stop: 08/20/17 00:49 Metformin HCl (Glucophage) 1,000 mg PO BIDWM SURAJ Stop: 08/20/17 07:59 Last Admin: 06/25/17 08:12 Dose: 1,000 mg Quetiapine Fumarate (Seroquel) 25 mg PO HS SURAJ PRN Reason: Protocol Stop: 08/23/17 13:28 Last Admin: 06/24/17 20:27 Dose: 25 mg Sertraline HCl (Zoloft) 50 mg PO DAILY SURAJ PRN Reason: Protocol Stop: 08/20/17 19:01 Last Admin: 06/25/17 09:47 Dose: 50 mg Zolpidem Tartrate (Ambien) 5 mg PO HSMR1 PRN PRN Reason: Insomnia Stop: 08/20/17 00:29 General: demented HEENT: NC/AT, PERRLA, poor dentition Neck: Supple, No JVD, No thyromegaly Lungs: CTAB Cardiovascular: RRR, Normal S1, Normal S2 Abdomen: soft, non-tender, globular, positive bowel sound Extremities: excoriation Neurological: no change, disorganized Internal Medicine Assmt/Plan - Assessment Assessment: Diabetes, obesity, hyponatremia, low albumin, hypertension, cardiomegaly, schizoaffective disorder, hypercholesterolemia. - Plan Plan: Continue the patient on ADA diet and insulin sliding scale Continue on angiotensin converting enzyme inhibitor Continue with current care Nutritional Asmnt/Malnutr-PDOC - Dietary Evaluation Malnutrition Findings (Please click <Entered> for more info): Nutritional Asmnt/Malnutrition Start: 06/21/17 14: 23 Text: Status: Complete Freq: Document 06/21/17 14:23 ANOOP (Rec: 06/21/17 14:32 SHIV [email or web address]) Nutritional Asmnt/Malnutrition Patient General Information Nutritional Screening High Risk Diagnosis psychosis Pertinent Medical Hx/Surgical Hx HTN, DM, dyslipidemia, bipolar Subjective Information Pt seen sitting in his room having lunch. Pt stated good appetite, no question about current diet, not interested in nutrition infomation about [facility] diet. Current Diet Order/ Nutrition Support [facility]-60gm Pertinent Medications vit D3, colace, novolog, levemir, glucophage Pertinent Labs 06/20 Na 132, glucose 261, AST 7 Nutritional Hx/Data Height 5 ft 4 in Height (Calculated Centimeters) 162.6 Current Weight (lbs) 210 lb Weight (Calculated Kilograms) 95.3 Weight (Calculated Grams) 48352.4 [place] Body Weight 130 Body Mass Index (BMI) 36.0 Weight Status Obese GI Symptoms GI Symptoms None Last BM not indicated Skin Integrity/Comment: leonel score 21 Current %PO Good (75-100%) Estimated Nutritional Goals BEE in Kcals: Adj wt of IBW Calories/Kcals/Kg 25-30 Kcals Calculated 3591-7576 Protein: Adj wt of IBW Protein g/k-1.2 Protein Calculated 68-82 Fluid: ml 1700-2040ml (1ml/kcal) Nutritional Problem 1. Problem Problem altered nutrition related labs Etiology hx of DM Signs/Symptoms: glucose 261 Malnutrition Alert Protein-Calorie Malnutrition N/A Is there a minimum of two criteria No selected? Query Text:Check all the applicable criteria. A minimum of two criteria are recommended for diagnosis of either severe or non-severe malnutrition. Intervention/Recommendation Comments 1. Continue with CCHO-60gm diet as ordered. 2. Monitor PO intake, wt, labs and skin integrity 3. F/U as moderate risk in 3-5 days, 06/24-06/26 Expected Outcomes/Goals Expected Outcomes/Goals 1. PO intake to meet at least 75% of nutritional needs. 2. Wt stability, skin to remain intact, labs to approach WNL.
[2017-06-26] MEDS: INSULIN ASPART SLIDING SCALE 100 UNITS/ML UNIT SUBQ SCH ×4 (06:38→20:51)
[2017-06-26] MEDS: Insulin Detemir 100 units/mL 10mL Vial SUBQ SCH ×2 (09:34→20:49)
--- NOTE | 2017-06-26 10:39 | Progress Notes ---
DATE: 06/25/2017 SUBJECTIVE: Staff was spoken too. The patient is interviewed. Mood is noted to be irritable. Affect is constricted. Insight and judgment noted to be still impaired. Impulse control is reviewed and the patient has been isolative and withdrawn. The patient is confused towards the end of the day and wants to get into other people's rooms. The patient is currently on 50 mg of the Zoloft and also getting 35 mg of the Seroquel and has been able to tolerate the medication. ASSESSMENT: The patient is still depressed and paranoid and confused. PLAN: To continue the patient with the supportive therapy and followup. JOB# [id number]
--- NOTE | 2017-06-26 12:19 | Internal Medicine Prog Note ---
Internal Medicine Subjective - Subjective Patient seen and examined:: with staff, chart reviewed Patient is:: awake, verbal, interactive Patient Complaints of:: congestion Per staff patient has:: no adverse event, no episodes of fall, eating well, combative, tolerating meds Internal Medicine Objective - Results Result Diagrams: 06/20/17 22:53 06/20/17 22:53 Recent Labs: Laboratory Last Values WBC 10.7 Th/cmm (4.8-10.8) 06/20/17 22:53 RBC 5.42 Mil/cmm (3.80-5.80) 06/20/17 22:53 Hgb 14.7 gm/dL (12-16) 06/20/17 22:53 Hct 44.6 % (41.0-60) 06/20/17 22:53 MCV 82.3 fl (80-99) 06/20/17 22:53 MCH 27.1 pg (27.0-31.0) 06/20/17 22:53 MCHC Differential 32.9 pg (28.0-36.0) 06/20/17 22:53 RDW 13.3 % (11.5-20.0) 06/20/17 22:53 Plt Count 346 Th/cmm (150-400) 06/20/17 22:53 MPV 6.8 fl 06/20/17 22:53 Neutrophils % 72.0 % (40.0-80.0) 06/20/17 22:53 Lymphocytes % 20.4 % (20.0-50.0) 06/20/17 22:53 Monocytes % 3.7 % (2.0-10.0) 06/20/17 22:53 Eosinophils % 3.6 % (0.0-5.0) 06/20/17 22:53 Basophils % 0.3 % (0.0-2.0) 06/20/17 22:53 Sodium 132 mEq/L (136-145) L 06/20/17 22:53 Potassium 4.0 mEq/L (3.5-5.1) 06/20/17 22:53 Chloride 101 mEq/L (98-107) 06/20/17 22:53 Carbon Dioxide 25.3 mEq/L (21.0-31.0) 06/20/17 22:53 Anion Gap 9.7 (7.0-16.0) 06/20/17 22:53 BUN 12 mg/dL (7-25) 06/20/17 22:53 Creatinine 0.8 mg/dL (0.7-1.3) 06/20/17 22:53 Est GFR ( Amer) > 60.0 ml/min (>90) 06/20/17 22:53 Est GFR (Non-Af Amer) > 60.0 ml/min 06/20/17 22:53 BUN/Creatinine Ratio 15.0 06/20/17 22:53 Glucose 261 mg/dL (70-105) H 06/20/17 22:53 POC Glucose 200 MG/DL (70 - 105) H 06/26/17 11:50 Hemoglobin A1c % 8.5 % (4.0-6.0) H 06/20/17 22:53 Calcium 9.1 mg/dL (8.6-10.3) 06/20/17 22:53 Total Bilirubin 0.6 mg/dL (0.3-1.0) 06/20/17 22:53 AST 7 U/L (13-39) L 06/20/17 22:53 ALT 9 U/L (7-52) 06/20/17 22:53 Alkaline Phosphatase 80 U/L (34-104) 06/20/17 22:53 Total Protein 6.4 gm/dL (6.0-8.3) 06/20/17 22:53 Albumin 3.6 gm/dL (4.2-5.5) L 06/20/17 22:53 Globulin 2.8 gm/dL 06/20/17 22:53 Albumin/Globulin Ratio 1.3 (1.0-1.8) 06/20/17 22:53 Triglycerides 138 mg/dL (<150) 06/20/17 22:53 Cholesterol 174 mg/dL (<200) 06/20/17 22:53 LDL Cholesterol Direct 118 mg/dL (75-193) 06/20/17 22:53 HDL Cholesterol 42 mg/dL (23-92) 06/20/17 22:53 TSH 2.62 uIU/ml (0.34-5.60) 06/20/17 22:53 Urine Source CLEAN C 06/20/17 23:25 Urine Color YELLOW 06/20/17 23:25 Urine Clarity CLEAR (CLEAR) 06/20/17 23:25 Urine pH 5.5 (4.6 - 8.0) 06/20/17 23:25 Ur Specific [place] >= 1.030 (1.005-1.030) 06/20/17 23:25 Urine Protein NEGATIVE mg/dL (NEGATIVE) 06/20/17 23:25 Urine Glucose (UA) >=1000 mg/dL (NEGATIVE) H 06/20/17 23:25 Urine Ketones NEGATIVE mg/dL (NEGATIVE) 06/20/17 23:25 Urine Blood NEGATIVE (NEGATIVE) 06/20/17 23:25 Urine Nitrate NEGATIVE (NEGATIVE) 06/20/17 23:25 Urine Bilirubin NEGATIVE (NEGATIVE) 06/20/17 23: Urine Urobilinogen 1.0 E.U./dL (0.2 - 1.0) 06/20/17 23:25 Ur Leukocyte Esterase NEGATIVE (NEGATIVE) 06/20/17 23:25 Urine RBC 0-2 /hpf (0-5) H 06/20/17 23:25 Urine WBC 0-2 /hpf (0-5) 06/20/17 23:25 Ur Epithelial Cells OCCASIONAL /lpf (FEW) 06/20/17 23:25 Urine Bacteria OCCASIONAL /hpf (NONE SEEN) 06/20/17 23:25 Urine Mucus FEW /lpf (FEW) 06/20/17 23:25 Salicylates < 25.0 mg/L (30.0-100.0) L 06/20/17 22:53 Urine Opiates Screen NEGATIVE (NEGATIVE) 06/20/17 23:25 Urine Methadone Screen NEGATIVE (NEGATIVE) 06/20/17 23: Acetaminophen < 10.0 ug/mL (10.0-30.0) L 06/20/17 22:53 Ur Barbiturates Screen NEGATIVE (NEGATIVE) 06/20/17 23:25 Ur Tricyclics Screen NEGATIVE (NEGATIVE) 06/20/17 23:25 Ur Phencyclidine Scrn NEGATIVE (NEGATIVE) 06/20/17 23:25 Amphetamines Screen NEGATIVE (NEGATIVE) 06/20/17 23:25 U Methamphetamines Scrn NEGATIVE (NEGATIVE) 06/20/17 23:25 U Benzodiazepines Scrn NEGATIVE (NEGATIVE) 06/20/17 23:25 U Cocaine Metab Screen NEGATIVE (NEGATIVE) 06/20/17 23:25 U Cannabinoids Screen NEGATIVE (NEGATIVE) 06/20/17 23:25 Ethyl Alcohol < 10 mg/dL (0-10) 06/20/17 22:53 RPR NONREACTIVE (NONREACTIVE) 06/20/17 22:53 - Physical Exam Vitals and I&O: Vital Signs Temp 97.7 F 06/26/17 06:53 Pulse 61 06/26/17 06:53 Resp 18 06/26/17 06:53 BP 150/82 06/26/17 06:53 Pulse Ox 98 06/26/17 06:53 Intake & Output 06/25/17 06/26/17 06/26/17 18:59 06:59 18:59 Intake Total 1200 720 Balance 1200 720 Intake: Oral 1200 720 Other: # Voids 6 2 # Bowel Movements 2 1 Stool Characteristics Formed Active Medications: Current Medications Acetaminophen (Tylenol) 650 mg PO Q4HR PRN PRN Reason: Pain or Fever >101 Stop: 08/20/17 00:49 Cholecalciferol (Vitamin D3) 1,000 iu PO DAILY [facility] Stop: 08/20/17 08:59 Last Admin: 06/26/17 08:13 Dose: 1,000 iu Dextrose (D50w) 50 ml IVP PRN PRN PRN Reason: HYPOGLYCEMIA LESS THAN 70 Stop: 08/20/17 01:13 Docusate Sodium (Colace) 100 mg PO BID [facility] Stop: 08/20/17 08:59 Last Admin: 06/26/17 08:12 Dose: 100 mg Insulin Aspart (Novolog Insulin Sliding Scale) 0 units SUBQ ACHS SURAJ PRN Reason: Protocol Stop: 08/20/17 07:29 Last Admin: 06/26/17 11:57 Dose: 2 units Insulin Detemir (Levemir Insulin) 20 units SUBQ Q12HR SURAJ Stop: 08/20/17 08:59 Last Admin: 06/26/17 09:34 Dose: 20 units Lorazepam (Ativan) 0.5 mg PO Q6HR PRN; Protocol PRN Reason: Anxiety Stop: 07/21/17 00:29 Last Admin: 06/23/17 15:33 Dose: 0.5 mg Magnesium Hydroxide (Milk Of Magnesia) 30 ml PO DAILY PRN PRN Reason: Constipation Stop: 08/20/17 00:49 Metformin HCl (Glucophage) 1,000 mg PO BIDWM [facility] Stop: 08/20/17 07:59 Last Admin: 06/26/17 08:12 Dose: 1,000 mg Quetiapine Fumarate (Seroquel) 25 mg PO BID SURAJ PRN Reason: Protocol Stop: 08/25/17 08:59 Last Admin: 06/26/17 09:39 Dose: 25 mg Sertraline HCl (Zoloft) 50 mg PO DAILY SURAJ PRN Reason: Protocol Stop: 08/20/17 19:01 Last Admin: 06/26/17 08:13 Dose: 50 mg Zolpidem Tartrate (Ambien) 5 mg PO HSMR1 PRN PRN Reason: Insomnia Stop: 08/20/17 00:29 Last Admin: 06/25/17 20:25 Dose: 5 mg General: demented HEENT: NC/AT, PERRLA, poor dentition Neck: Supple, No JVD, No thyromegaly Lungs: CTAB Cardiovascular: RRR, Normal S1, Normal S2 Abdomen: soft, non-tender, globular, positive bowel sound Extremities: excoriation Neurological: no change, disorganized Internal Medicine Assmt/Plan - Assessment Assessment: ASSESSMENT AND PLAN: Diabetes, obesity, hyponatremia, low albumin, hypertension, cardiomegaly, schizoaffective disorder, hypercholesterolemia. - Plan Plan: Continue the patient on ADA diet and insulin sliding scale. Continue on an angiotensin converting enzyme inhibitor. We will correct electrolyte abnormalities. Continue with current care and follow consult recommendations. Nutritional Asmnt/Malnutr-PDOC - Dietary Evaluation Malnutrition Findings (Please click <Entered> for more info): Nutritional Asmnt/Malnutrition Start: 06/21/17 14: 23 Text: Status: Complete Freq: Document 06/21/17 14:23 EVERARDO (Rec: 06/21/17 14:32 EVERARDO [email or web address]) Nutritional Asmnt/Malnutrition Patient General Information Nutritional Screening High Risk Diagnosis psychosis Pertinent Medical Hx/Surgical Hx HTN, DM, dyslipidemia, bipolar Subjective Information Pt seen sitting in his room having lunch. Pt stated good appetite, no question about current diet, not interested in nutrition infomation about [facility] diet. Current Diet Order/ Nutrition Support [facility]-60gm Pertinent Medications vit D3, colace, novolog, levemir, glucophage Pertinent Labs 06/20 Na 132, glucose 261, AST 7 Nutritional Hx/Data Height 1.63 m Height (Calculated Centimeters) 162.6 Current Weight (lbs) 95.254 kg Weight (Calculated Kilograms) 95.3 Weight (Calculated Grams) 71524.4 [place] Body Weight 130 Body Mass Index (BMI) 36.0 Weight Status Obese GI Symptoms GI Symptoms None Last BM not indicated Skin Integrity/Comment: leonel score 21 Current %PO Good (75-100%) Estimated Nutritional Goals BEE in Kcals: Adj wt of IBW Calories/Kcals/Kg 25-30 Kcals Calculated 1455-1320 Protein: Adj wt of IBW Protein g/k-1.2 Protein Calculated 68-82 Fluid: ml 1700-2040ml (1ml/kcal) Nutritional Problem 1. Problem Problem altered nutrition related labs Etiology hx of DM Signs/Symptoms: glucose 261 Malnutrition Alert Protein-Calorie Malnutrition N/A Is there a minimum of two criteria No selected? Query Text:Check all the applicable criteria. A minimum of two criteria are recommended for diagnosis of either severe or non-severe malnutrition. Intervention/Recommendation Comments 1. Continue with CCHO-60gm diet as ordered. 2. Monitor PO intake, wt, labs and skin integrity 3. F/U as moderate risk in 3-5 days, 06/24-06/26 Expected Outcomes/Goals Expected Outcomes/Goals 1. PO intake to meet at least 75% of nutritional needs. 2. Wt stability, skin to remain intact, labs to approach WNL.
--- NOTE | 2017-06-26 15:01 | Progress Notes ---
DATE: 06/26/2017 SUBJECTIVE: Staff was spoken to. The patient is interviewed. Mood is noted to be irritable. Affect is constricted. Insight and judgment at this time are noted to be still impaired. Impulse control is poor. Coping skills are noted to be poor. The patient has been still very impulsive and very disabled. The patient's insight and judgment at this time noted to be still impaired. The patient is currently on sertraline 50 mg and the Seroquel increase to 25 mg twice a day and the patient is going to be closely monitored with these medications, the patient is at this time not able to care for self. ASSESSMENT: The patient is still grossly psychotic. PLAN: To continue the patient with the supportive therapy and followup. [facility]# [id number]
[2017-06-27] MEDS: INSULIN ASPART SLIDING SCALE 100 UNITS/ML UNIT SUBQ SCH ×4 (06:58→21:00)
[2017-06-27] MEDS: Insulin Detemir 100 units/mL 10mL Vial SUBQ SCH ×2 (09:32→21:01)
--- NOTE | 2017-06-27 12:34 | Internal Medicine Prog Note ---
Internal Medicine Subjective - Subjective Service Date: 06/27/17 Patient is:: awake, verbal, interactive Patient Complaints of:: congestion Per staff patient has:: no adverse event, no episodes of fall, eating well, combative, tolerating meds Internal Medicine Objective - Results Result Diagrams: 06/20/17 22:53 06/20/17 22:53 Recent Labs: Laboratory Last Values WBC 10.7 Th/cmm (4.8-10.8) 06/20/17 22:53 RBC 5.42 Mil/cmm (3.80-5.80) 06/20/17 22:53 Hgb 14.7 gm/dL (12-16) 06/20/17 22:53 Hct 44.6 % (41.0-60) 06/20/17 22:53 MCV 82.3 fl (80-99) 06/20/17 22:53 MCH 27.1 pg (27.0-31.0) 06/20/17 22:53 MCHC Differential 32.9 pg (28.0-36.0) 06/20/17 22:53 RDW 13.3 % (11.5-20.0) 06/20/17 22:53 Plt Count 346 Th/cmm (150-400) 06/20/17 22:53 MPV 6.8 fl 06/20/17 22:53 Neutrophils % 72.0 % (40.0-80.0) 06/20/17 22:53 Lymphocytes % 20.4 % (20.0-50.0) 06/20/17 22:53 Monocytes % 3.7 % (2.0-10.0) 06/20/17 22:53 Eosinophils % 3.6 % (0.0-5.0) 06/20/17 22:53 Basophils % 0.3 % (0.0-2.0) 06/20/17 22:53 Sodium 132 mEq/L (136-145) L 06/20/17 22:53 Potassium 4.0 mEq/L (3.5-5.1) 06/20/17 22:53 Chloride 101 mEq/L (98-107) 06/20/17 22:53 Carbon Dioxide 25.3 mEq/L (21.0-31.0) 06/20/17 22:53 Anion Gap 9.7 (7.0-16.0) 06/20/17 22:53 BUN 12 mg/dL (7-25) 06/20/17 22:53 Creatinine 0.8 mg/dL (0.7-1.3) 06/20/17 22:53 Est GFR ( Amer) > 60.0 ml/min (>90) 06/20/17 22:53 Est GFR (Non-Af Amer) > 60.0 ml/min 06/20/17 22:53 BUN/Creatinine Ratio 15.0 06/20/17 22:53 Glucose 261 mg/dL (70-105) H 06/20/17 22:53 POC Glucose 210 MG/DL (70 - 105) H 06/27/17 11:57 Hemoglobin A1c % 8.5 % (4.0-6.0) H 06/20/17 22:53 Calcium 9.1 mg/dL (8.6-10.3) 06/20/17 22:53 Total Bilirubin 0.6 mg/dL (0.3-1.0) 06/20/17 22:53 AST 7 U/L (13-39) L 06/20/17 22:53 ALT 9 U/L (7-52) 06/20/17 22:53 Alkaline Phosphatase 80 U/L (34-104) 06/20/17 22:53 Total Protein 6.4 gm/dL (6.0-8.3) 06/20/17 22:53 Albumin 3.6 gm/dL (4.2-5.5) L 06/20/17 22:53 Globulin 2.8 gm/dL 06/20/17 22:53 Albumin/Globulin Ratio 1.3 (1.0-1.8) 06/20/17 22:53 Triglycerides 138 mg/dL (<150) 06/20/17 22:53 Cholesterol 174 mg/dL (<200) 06/20/17 22:53 LDL Cholesterol Direct 118 mg/dL (75-193) 06/20/17 22:53 HDL Cholesterol 42 mg/dL (23-92) 06/20/17 22:53 TSH 2.62 uIU/ml (0.34-5.60) 06/20/17 22:53 Urine Source CLEAN C 06/20/17 23:25 Urine Color YELLOW 06/20/17 23:25 Urine Clarity CLEAR (CLEAR) 06/20/17 23:25 Urine pH 5.5 (4.6 - 8.0) 06/20/17 23:25 Ur Specific [place] >= 1.030 (1.005-1.030) 06/20/17 23:25 Urine Protein NEGATIVE mg/dL (NEGATIVE) 06/20/17 23:25 Urine Glucose (UA) >=1000 mg/dL (NEGATIVE) H 06/20/17 23:25 Urine Ketones NEGATIVE mg/dL (NEGATIVE) 06/20/17 23:25 Urine Blood NEGATIVE (NEGATIVE) 06/20/17 23:25 Urine Nitrate NEGATIVE (NEGATIVE) 06/20/17 23:25 Urine Bilirubin NEGATIVE (NEGATIVE) 06/20/17 23:25 Urine Urobilinogen 1.0 E.U./dL (0.2 - 1.0) 06/20/17 23:25 Ur Leukocyte Esterase NEGATIVE (NEGATIVE) 06/20/17 23:25 Urine RBC 0-2 /hpf (0-5) H 06/20/17 23:25 Urine WBC 0-2 /hpf (0-5) 06/20/17 23:25 Ur Epithelial Cells OCCASIONAL /lpf (FEW) 06/20/17 23:25 Urine Bacteria OCCASIONAL /hpf (NONE SEEN) 06/20/17 23:25 Urine Mucus FEW /lpf (FEW) 06/20/17 23:25 Salicylates < 25.0 mg/L (30.0-100.0) L 06/20/17 22:53 Urine Opiates Screen NEGATIVE (NEGATIVE) 06/20/17 23:25 Urine Methadone Screen NEGATIVE (NEGATIVE) 06/20/17 23:25 Acetaminophen < 10.0 ug/mL (10.0-30.0) L 06/20/17 22:53 Ur Barbiturates Screen NEGATIVE (NEGATIVE) 06/20/17 23:25 Ur Tricyclics Screen NEGATIVE (NEGATIVE) 06/20/17 23:25 Ur Phencyclidine Scrn NEGATIVE (NEGATIVE) 06/20/17 23:25 Amphetamines Screen NEGATIVE (NEGATIVE) 06/20/17 23:25 U Methamphetamines Scrn NEGATIVE (NEGATIVE) 06/20/17 23:25 U Benzodiazepines Scrn NEGATIVE (NEGATIVE) 06/20/17 23:25 U Cocaine Metab Screen NEGATIVE (NEGATIVE) 06/20/17 23:25 U Cannabinoids Screen NEGATIVE (NEGATIVE) 06/20/17 23:25 Ethyl Alcohol < 10 mg/dL (0-10) 06/20/17 22:53 RPR NONREACTIVE (NONREACTIVE) 06/20/17 22:53 - Physical Exam Vitals and I&O: Vital Signs Temp 97.2 F 06/27/17 06:37 Pulse 64 06/27/17 06:37 Resp 20 06/27/17 06:37 BP 141/82 06/27/17 06:37 Pulse Ox 96 06/27/17 06:37 Intake & Output 06/26/17 06/27/17 06/27/17 18:59 06:59 18:59 Intake Total 1200 300 Balance 1200 300 Intake: Oral 1200 300 Other: # Voids 3 2 # Bowel Movements 0 1 Stool Characteristics Formed Formed Active Medications: Current Medications Acetaminophen (Tylenol) 650 mg PO Q4HR PRN PRN Reason: Pain or Fever >101 Stop: 08/20/17 00:49 Cholecalciferol (Vitamin D3) 1,000 iu PO DAILY [facility] Stop: 08/20/17 08:59 Last Admin: 06/27/17 09:33 Dose: 1,000 iu Dextrose (D50w) 50 ml IVP PRN PRN PRN Reason: HYPOGLYCEMIA LESS THAN 70 Stop: 08/20/17 01:13 Docusate Sodium (Colace) 100 mg PO BID [facility] Stop: 08/20/17 08:59 Last Admin: 06/27/17 09:33 Dose: 100 mg Insulin Aspart (Novolog Insulin Sliding Scale) 0 units SUBQ ACHS [facility] PRN Reason: Protocol Stop: 08/20/17 07:29 Last Admin: 06/27/17 12:05 Dose: 4 units Insulin Detemir (Levemir Insulin) 20 units SUBQ Q12HR [facility] Stop: 08/20/17 08:59 Last Admin: 06/27/17 09:32 Dose: Not Given Lorazepam (Ativan) 0.5 mg PO Q6HR PRN; Protocol PRN Reason: Anxiety Stop: 07/21/17 00:29 Last Admin: 06/23/17 15:33 Dose: 0.5 mg Magnesium Hydroxide (Milk Of Magnesia) 30 ml PO DAILY PRN PRN Reason: Constipation Stop: 08/20/17 00:49 Metformin HCl (Glucophage) 1,000 mg PO BIDWM [facility] Stop: 08/20/17 07:59 Last Admin: 06/27/17 09:32 Dose: Not Given Quetiapine Fumarate (Seroquel) 25 mg PO BID [facility] PRN Reason: Protocol Stop: 08/25/17 08:59 Last Admin: 06/27/17 09:34 Dose: 25 mg Sertraline HCl (Zoloft) 50 mg PO DAILY [facility] PRN Reason: Protocol Stop: 08/20/17 19:01 Last Admin: 06/27/17 09:34 Dose: 50 mg Zolpidem Tartrate (Ambien) 5 mg PO HSMR1 PRN PRN Reason: Insomnia Stop: 08/20/17 00:29 Last Admin: 06/25/17 20:25 Dose: 5 mg General: demented HEENT: NC/AT, PERRLA, poor dentition Neck: Supple, No JVD, No thyromegaly Lungs: CTAB Cardiovascular: RRR, Normal S1, Normal S2 Abdomen: soft, non-tender, globular, positive bowel sound Extremities: excoriation Neurological: no change, disorganized Internal Medicine Assmt/Plan - Assessment Assessment: Diabetes, obesity, hyponatremia, low albumin, hypertension, cardiomegaly, schizoaffective disorder, hypercholesterolemia. - Plan Plan: Continue the patient on ADA diet and insulin sliding scale Continue on angiotensin converting enzyme inhibitor Continue with current care Nutritional Asmnt/Malnutr-PDOC - Dietary Evaluation Malnutrition Findings (Please click <Entered> for more info): Nutritional Asmnt/Malnutrition Start: 06/21/17 14: 23 Text: Status: Complete Freq: Document 06/21/17 14:23 EVERARDO (Rec: 06/21/17 14:32 EVERARDO [email or web address]) Nutritional Asmnt/Malnutrition Patient General Information Nutritional Screening High Risk Diagnosis psychosis Pertinent Medical Hx/Surgical Hx HTN, DM, dyslipidemia, bipolar Subjective Information Pt seen sitting in his room having lunch. Pt stated good appetite, no question about current diet, not interested in nutrition infomation about [facility] diet. Current Diet Order/ Nutrition Support [facility]-60gm Pertinent Medications vit D3, colace, novolog, levemir, glucophage Pertinent Labs 06/20 Na 132, glucose 261, AST 7 Nutritional Hx/Data Height 5 ft 4 in Height (Calculated Centimeters) 162.6 Current Weight (lbs) 210 lb Weight (Calculated Kilograms) 95.3 Weight (Calculated Grams) 30088.4 [place] Body Weight 130 Body Mass Index (BMI) 36.0 Weight Status Obese GI Symptoms GI Symptoms None Last BM not indicated Skin Integrity/Comment: leonel score 21 Current %PO Good (75-100%) Estimated Nutritional Goals BEE in Kcals: Adj wt of IBW Calories/Kcals/Kg 25-30 Kcals Calculated 1090-2669 Protein: Adj wt of IBW Protein g/k-1.2 Protein Calculated 68-82 Fluid: ml 1700-2040ml (1ml/kcal) Nutritional Problem 1. Problem Problem altered nutrition related labs Etiology hx of DM Signs/Symptoms: glucose 261 Malnutrition Alert Protein-Calorie Malnutrition N/A Is there a minimum of two criteria No selected? Query Text:Check all the applicable criteria. A minimum of two criteria are recommended for diagnosis of either severe or non-severe malnutrition. Intervention/Recommendation Comments 1. Continue with CCHO-60gm diet as ordered. 2. Monitor PO intake, wt, labs and skin integrity 3. F/U as moderate risk in 3-5 days, 06/24-06/26 Expected Outcomes/Goals Expected Outcomes/Goals 1. PO intake to meet at least 75% of nutritional needs. 2. Wt stability, skin to remain intact, labs to approach WNL.
--- NOTE | 2017-06-27 22:33 | Progress Notes ---
DATE: 06/27/2017 PROGRESS NOTE SUBJECTIVE: Staff was spoken to. The patient is interviewed. Mood is noted to be irritable. Affect is constricted. The patient's insight and judgment are noted to be still impaired. Impulse control is noted to be poor. Coping skills are noted to very poor. The patient has been confused and wandering into other people's rooms and the patient needs to be redirected. Currently, the patient is on Seroquel 25 mg and has been able to tolerate the medications. PLAN: The patient is not presenting with any depression, hence the Zoloft is going to be discontinued and the patient is going to be closely monitored. JOB# [id number]
[2017-06-28] MEDS: INSULIN ASPART SLIDING SCALE 100 UNITS/ML UNIT SUBQ SCH ×3 (06:31→21:49)
[2017-06-28] MEDS: Insulin Detemir 100 units/mL 10mL Vial SUBQ SCH ×2 (09:24→21:50)
--- NOTE | 2017-06-28 14:14 | Internal Medicine Prog Note ---
Internal Medicine Subjective - Subjective Service Date: 06/28/17 Patient is:: awake, verbal, interactive Patient Complaints of:: congestion Per staff patient has:: no adverse event, no episodes of fall, eating well, combative, tolerating meds Internal Medicine Objective - Results Result Diagrams: 06/20/17 22:53 06/20/17 22:53 Recent Labs: Laboratory Last Values WBC 10.7 Th/cmm (4.8-10.8) 06/20/17 22:53 RBC 5.42 Mil/cmm (3.80-5.80) 06/20/17 22:53 Hgb 14.7 gm/dL (12-16) 06/20/17 22:53 Hct 44.6 % (41.0-60) 06/20/17 22:53 MCV 82.3 fl (80-99) 06/20/17 22:53 MCH 27.1 pg (27.0-31.0) 06/20/17 22:53 MCHC Differential 32.9 pg (28.0-36.0) 06/20/17 22:53 RDW 13.3 % (11.5-20.0) 06/20/17 22:53 Plt Count 346 Th/cmm (150-400) 06/20/17 22:53 MPV 6.8 fl 06/20/17 22:53 Neutrophils % 72.0 % (40.0-80.0) 06/20/17 22:53 Lymphocytes % 20.4 % (20.0-50.0) 06/20/17 22:53 Monocytes % 3.7 % (2.0-10.0) 06/20/17 22:53 Eosinophils % 3.6 % (0.0-5.0) 06/20/17 22:53 Basophils % 0.3 % (0.0-2.0) 06/20/17 22:53 Sodium 132 mEq/L (136-145) L 06/20/17 22:53 Potassium 4.0 mEq/L (3.5-5.1) 06/20/17 22:53 Chloride 101 mEq/L (98-107) 06/20/17 22:53 Carbon Dioxide 25.3 mEq/L (21.0-31.0) 06/20/17 22:53 Anion Gap 9.7 (7.0-16.0) 06/20/17 22:53 BUN 12 mg/dL (7-25) 06/20/17 22:53 Creatinine 0.8 mg/dL (0.7-1.3) 06/20/17 22:53 Est GFR ( Amer) > 60.0 ml/min (>90) 06/20/17 22:53 Est GFR (Non-Af Amer) > 60.0 ml/min 06/20/17 22:53 BUN/Creatinine Ratio 15.0 06/20/17 22:53 Glucose 261 mg/dL (70-105) H 06/20/17 22:53 POC Glucose 216 MG/DL (70-105) H 06/28/17 06:14 Hemoglobin A1c % 8.5 % (4.0-6.0) H 06/20/17 22:53 Calcium 9.1 mg/dL (8.6-10.3) 06/20/17 22:53 Total Bilirubin 0.6 mg/dL (0.3-1.0) 06/20/17 22:53 AST 7 U/L (13-39) L 06/20/17 22:53 ALT 9 U/L (7-52) 06/20/17 22:53 Alkaline Phosphatase 80 U/L (34-104) 06/20/17 22:53 Total Protein 6.4 gm/dL (6.0-8.3) 06/20/17 22:53 Albumin 3.6 gm/dL (4.2-5.5) L 06/20/17 22:53 Globulin 2.8 gm/dL 06/20/17 22:53 Albumin/Globulin Ratio 1.3 (1.0-1.8) 06/20/17 22:53 Triglycerides 138 mg/dL (<150) 06/20/17 22:53 Cholesterol 174 mg/dL (<200) 06/20/17 22:53 LDL Cholesterol Direct 118 mg/dL (75-193) 06/20/17 22:53 HDL Cholesterol 42 mg/dL (23-92) 06/20/17 22:53 TSH 2.62 uIU/ml (0.34-5.60) 06/20/17 22:53 Urine Source CLEAN C 06/20/17 23:25 Urine Color YELLOW 06/20/17 23:25 Urine Clarity CLEAR (CLEAR) 06/20/17 23:25 Urine pH 5.5 (4.6 - 8.0) 06/20/17 23:25 Ur Specific [place] >= 1.030 (1.005-1.030) 06/20/17 23:25 Urine Protein NEGATIVE mg/dL (NEGATIVE) 06/20/17 23:25 Urine Glucose (UA) >=1000 mg/dL (NEGATIVE) H 06/20/17 23:25 Urine Ketones NEGATIVE mg/dL (NEGATIVE) 06/20/17 23:25 Urine Blood NEGATIVE (NEGATIVE) 06/20/17 23:25 Urine Nitrate NEGATIVE (NEGATIVE) 06/20/17 23:25 Urine Bilirubin NEGATIVE (NEGATIVE) 06/20/17 23:25 Urine Urobilinogen 1.0 E.U./dL (0.2 - 1.0) 06/20/17 23:25 Ur Leukocyte Esterase NEGATIVE (NEGATIVE) 06/20/17 23:25 Urine RBC 0-2 /hpf (0-5) H 06/20/17 23:25 Urine WBC 0-2 /hpf (0-5) 06/20/17 23:25 Ur Epithelial Cells OCCASIONAL /lpf (FEW) 06/20/17 23:25 Urine Bacteria OCCASIONAL /hpf (NONE SEEN) 06/20/17 23:25 Urine Mucus FEW /lpf (FEW) 06/20/17 23:25 Salicylates < 25.0 mg/L (30.0-100.0) L 06/20/17 22:53 Urine Opiates Screen NEGATIVE (NEGATIVE) 06/20/17 23:25 Urine Methadone Screen NEGATIVE (NEGATIVE) 06/20/17 23:25 Acetaminophen < 10.0 ug/mL (10.0-30.0) L 06/20/17 22:53 Ur Barbiturates Screen NEGATIVE (NEGATIVE) 06/20/17 23:25 Ur Tricyclics Screen NEGATIVE (NEGATIVE) 06/20/17 23:25 Ur Phencyclidine Scrn NEGATIVE (NEGATIVE) 06/20/17 23:25 Amphetamines Screen NEGATIVE (NEGATIVE) 06/20/17 23:25 U Methamphetamines Scrn NEGATIVE (NEGATIVE) 06/20/17 23:25 U Benzodiazepines Scrn NEGATIVE (NEGATIVE) 06/20/17 23:25 U Cocaine Metab Screen NEGATIVE (NEGATIVE) 06/20/17 23:25 U Cannabinoids Screen NEGATIVE (NEGATIVE) 06/20/17 23:25 Ethyl Alcohol < 10 mg/dL (0-10) 06/20/17 22:53 RPR NONREACTIVE (NONREACTIVE) 06/20/17 22:53 - Physical Exam Vitals and I&O: Vital Signs Temp 96.9 F 06/28/17 06:33 Pulse 66 06/28/17 06:33 Resp 21 06/28/17 06:33 BP 138/76 06/28/17 06:33 Pulse Ox 97 06/28/17 06:33 Intake & Output 06/27/17 06/28/17 06/28/17 18:59 06:59 18:59 Intake Total 1200 120 Balance 1200 120 Intake: Oral 1200 120 Other: # Voids 3 3 Stool Characteristics Formed Active Medications: Current Medications Acetaminophen (Tylenol) 650 mg PO Q4HR PRN PRN Reason: Pain or Fever >101 Stop: 08/20/17 00:49 Cholecalciferol (Vitamin D3) 1,000 iu PO DAILY [facility] Stop: 08/20/17 08:59 Last Admin: 06/28/17 09:26 Dose: 1,000 iu Dextrose (D50w) 50 ml IVP PRN PRN PRN Reason: HYPOGLYCEMIA LESS THAN 70 Stop: 08/20/17 01:13 Docusate Sodium (Colace) 100 mg PO BID [facility] Stop: 08/20/17 08:59 Last Admin: 06/28/17 09:25 Dose: 100 mg Insulin Aspart (Novolog Insulin Sliding Scale) 0 units SUBQ ACHS [facility] PRN Reason: Protocol Stop: 08/20/17 07:29 Last Admin: 06/28/17 11:40 Dose: Not Given Insulin Detemir (Levemir Insulin) 20 units SUBQ Q12HR [facility] Stop: 08/20/17 08:59 Last Admin: 06/28/17 09:24 Dose: 20 units Lorazepam (Ativan) 0.5 mg PO Q6HR PRN; Protocol PRN Reason: Anxiety Stop: 07/21/17 00:29 Last Admin: 06/28/17 09:26 Dose: 0.5 mg Magnesium Hydroxide (Milk Of Magnesia) 30 ml PO DAILY PRN PRN Reason: Constipation Stop: 08/20/17 00:49 Metformin HCl (Glucophage) 1,000 mg PO BIDWM [facility] Stop: 08/20/17 07:59 Last Admin: 06/28/17 09:26 Dose: 1,000 mg Quetiapine Fumarate (Seroquel) 25 mg PO BID [facility] PRN Reason: Protocol Stop: 08/25/17 08:59 Last Admin: 06/28/17 09:32 Dose: Not Given Zolpidem Tartrate (Ambien) 5 mg PO HSMR1 PRN PRN Reason: Insomnia Stop: 08/20/17 00:29 Last Admin: 06/27/17 20:43 Dose: 5 mg General: demented HEENT: NC/AT, PERRLA, poor dentition Neck: Supple, No JVD, No thyromegaly Lungs: CTAB Cardiovascular: RRR, Normal S1, Normal S2 Abdomen: soft, non-tender, globular, positive bowel sound Extremities: excoriation Neurological: no change, disorganized Internal Medicine Assmt/Plan - Assessment Assessment: Diabetes, obesity, hyponatremia, low albumin, hypertension, cardiomegaly, schizoaffective disorder, hypercholesterolemia. - Plan Plan: Continue the patient on ADA diet and insulin sliding scale Continue on angiotensin converting enzyme inhibitor Continue with current care Nutritional Asmnt/Malnutr-PDOC - Dietary Evaluation Malnutrition Findings (Please click <Entered> for more info): Nutritional Asmnt/Malnutrition Start: 06/21/17 14: 23 Text: Status: Complete Freq: Document 06/21/17 14:23 LCHENG (Rec: 06/21/17 14:32 LCHENG [email or web address]) Nutritional Asmnt/Malnutrition Patient General Information Nutritional Screening High Risk Diagnosis psychosis Pertinent Medical Hx/Surgical Hx HTN, DM, dyslipidemia, bipolar Subjective Information Pt seen sitting in his room having lunch. Pt stated good appetite, no question about current diet, not interested in nutrition infomation about [facility] diet. Current Diet Order/ Nutrition Support [facility]-60gm Pertinent Medications vit D3, colace, novolog, levemir, glucophage Pertinent Labs 06/20 Na 132, glucose 261, AST 7 Nutritional Hx/Data Height 5 ft 4 in Height (Calculated Centimeters) 162.6 Current Weight (lbs) 210 lb Weight (Calculated Kilograms) 95.3 Weight (Calculated Grams) 52748.4 [place] Body Weight 130 Body Mass Index (BMI) 36.0 Weight Status Obese GI Symptoms GI Symptoms None Last BM not indicated Skin Integrity/Comment: leonel score 21 Current %PO Good (75-100%) Estimated Nutritional Goals BEE in Kcals: Adj wt of IBW Calories/Kcals/Kg 25-30 Kcals Calculated 0824-6173 Protein: Adj wt of IBW Protein g/k-1.2 Protein Calculated 68-82 Fluid: ml 1700-2040ml (1ml/kcal) Nutritional Problem 1. Problem Problem altered nutrition related labs Etiology hx of DM Signs/Symptoms: glucose 261 Malnutrition Alert Protein-Calorie Malnutrition N/A Is there a minimum of two criteria No selected? Query Text:Check all the applicable criteria. A minimum of two criteria are recommended for diagnosis of either severe or non-severe malnutrition. Intervention/Recommendation Comments 1. Continue with CCHO-60gm diet as ordered. 2. Monitor PO intake, wt, labs and skin integrity 3. F/U as moderate risk in 3-5 days, 06/24-06/26 Expected Outcomes/Goals Expected Outcomes/Goals 1. PO intake to meet at least 75% of nutritional needs. 2. Wt stability, skin to remain intact, labs to approach WNL.
--- NOTE | 2017-06-29 01:24 | Progress Notes ---
DATE: 06/28/2017 SUBJECTIVE: Staff was spoken to. The patient is interviewed. Mood is noted to be irritable. Affect is constricted. Insight and judgment are noted to be still impaired. Impulse control is noted to be limited. The patient has been getting easily agitated. The patient is getting confused towards the end of the day and has been getting into other people's rooms and has been finding it difficult to be redirected. No side effects to the medications are noted at this time. ASSESSMENT: The patient is still psychotic. PLAN: To continue the patient with the current medications and followup. JOB# [id number]
[2017-06-29] MEDS: INSULIN ASPART SLIDING SCALE 100 UNITS/ML UNIT SUBQ SCH ×4 (06:30→21:37)
[2017-06-29] MEDS: Insulin Detemir 100 units/mL 10mL Vial SUBQ SCH ×2 (09:25→21:37)
--- NOTE | 2017-06-29 09:46 | Internal Medicine Prog Note ---
Internal Medicine Subjective - Subjective Service Date: 06/29/17 Patient is:: awake, verbal, interactive Patient Complaints of:: congestion Per staff patient has:: no adverse event, no episodes of fall, eating well, combative, tolerating meds Internal Medicine Objective - Results Result Diagrams: 06/20/17 22:53 06/20/17 22:53 Recent Labs: Laboratory Last Values WBC 10.7 Th/cmm (4.8-10.8) 06/20/17 22:53 RBC 5.42 Mil/cmm (3.80-5.80) 06/20/17 22:53 Hgb 14.7 gm/dL (12-16) 06/20/17 22:53 Hct 44.6 % (41.0-60) 06/20/17 22:53 MCV 82.3 fl (80-99) 06/20/17 22:53 MCH 27.1 pg (27.0-31.0) 06/20/17 22:53 MCHC Differential 32.9 pg (28.0-36.0) 06/20/17 22:53 RDW 13.3 % (11.5-20.0) 06/20/17 22:53 Plt Count 346 Th/cmm (150-400) 06/20/17 22:53 MPV 6.8 fl 06/20/17 22:53 Neutrophils % 72.0 % (40.0-80.0) 06/20/17 22:53 Lymphocytes % 20.4 % (20.0-50.0) 06/20/17 22:53 Monocytes % 3.7 % (2.0-10.0) 06/20/17 22:53 Eosinophils % 3.6 % (0.0-5.0) 06/20/17 22:53 Basophils % 0.3 % (0.0-2.0) 06/20/17 22:53 Sodium 132 mEq/L (136-145) L 06/20/17 22:53 Potassium 4.0 mEq/L (3.5-5.1) 06/20/17 22:53 Chloride 101 mEq/L (98-107) 06/20/17 22:53 Carbon Dioxide 25.3 mEq/L (21.0-31.0) 06/20/17 22:53 Anion Gap 9.7 (7.0-16.0) 06/20/17 22:53 BUN 12 mg/dL (7-25) 06/20/17 22:53 Creatinine 0.8 mg/dL (0.7-1.3) 06/20/17 22:53 Est GFR ( Amer) > 60.0 ml/min (>90) 06/20/17 22:53 Est GFR (Non-Af Amer) > 60.0 ml/min 06/20/17 22:53 BUN/Creatinine Ratio 15.0 06/20/17 22:53 Glucose 261 mg/dL (70-105) H 06/20/17 22:53 POC Glucose 175 MG/DL (70 - 105) H 06/29/17 06:15 Hemoglobin A1c % 8.5 % (4.0-6.0) H 06/20/17 22:53 Calcium 9.1 mg/dL (8.6-10.3) 06/20/17 22:53 Total Bilirubin 0.6 mg/dL (0.3-1.0) 06/20/17 22:53 AST 7 U/L (13-39) L 06/20/17 22:53 ALT 9 U/L (7-52) 06/20/17 22:53 Alkaline Phosphatase 80 U/L (34-104) 06/20/17 22:53 Total Protein 6.4 gm/dL (6.0-8.3) 06/20/17 22:53 Albumin 3.6 gm/dL (4.2-5.5) L 06/20/17 22:53 Globulin 2.8 gm/dL 06/20/17 22:53 Albumin/Globulin Ratio 1.3 (1.0-1.8) 06/20/17 22:53 Triglycerides 138 mg/dL (<150) 06/20/17 22:53 Cholesterol 174 mg/dL (<200) 06/20/17 22:53 LDL Cholesterol Direct 118 mg/dL (75-193) 06/20/17 22:53 HDL Cholesterol 42 mg/dL (23-92) 06/20/17 22:53 TSH 2.62 uIU/ml (0.34-5.60) 06/20/17 22:53 Urine Source CLEAN C 06/20/17 23:25 Urine Color YELLOW 06/20/17 23:25 Urine Clarity CLEAR (CLEAR) 06/20/17 23:25 Urine pH 5.5 (4.6 - 8.0) 06/20/17 23:25 Ur Specific [place] >= 1.030 (1.005-1.030) 06/20/17 23:25 Urine Protein NEGATIVE mg/dL (NEGATIVE) 06/20/17 23:25 Urine Glucose (UA) >=1000 mg/dL (NEGATIVE) H 06/20/17 23:25 Urine Ketones NEGATIVE mg/dL (NEGATIVE) 06/20/17 23:25 Urine Blood NEGATIVE (NEGATIVE) 06/20/17 23:25 Urine Nitrate NEGATIVE (NEGATIVE) 06/20/17 23:25 Urine Bilirubin NEGATIVE (NEGATIVE) 06/20/17 23:25 Urine Urobilinogen 1.0 E.U./dL (0.2 - 1.0) 06/20/17 23:25 Ur Leukocyte Esterase NEGATIVE (NEGATIVE) 06/20/17 23:25 Urine RBC 0-2 /hpf (0-5) H 06/20/17 23:25 Urine WBC 0-2 /hpf (0-5) 06/20/17 23:25 Ur Epithelial Cells OCCASIONAL /lpf (FEW) 06/20/17 23:25 Urine Bacteria OCCASIONAL /hpf (NONE SEEN) 06/20/17 23:25 Urine Mucus FEW /lpf (FEW) 06/20/17 23:25 Salicylates < 25.0 mg/L (30.0-100.0) L 06/20/17 22:53 Urine Opiates Screen NEGATIVE (NEGATIVE) 06/20/17 23:25 Urine Methadone Screen NEGATIVE (NEGATIVE) 06/20/17 23:25 Acetaminophen < 10.0 ug/mL (10.0-30.0) L 06/20/17 22:53 Ur Barbiturates Screen NEGATIVE (NEGATIVE) 06/20/17 23:25 Ur Tricyclics Screen NEGATIVE (NEGATIVE) 06/20/17 23:25 Ur Phencyclidine Scrn NEGATIVE (NEGATIVE) 06/20/17 23:25 Amphetamines Screen NEGATIVE (NEGATIVE) 06/20/17 23:25 U Methamphetamines Scrn NEGATIVE (NEGATIVE) 06/20/17 23:25 U Benzodiazepines Scrn NEGATIVE (NEGATIVE) 06/20/17 23:25 U Cocaine Metab Screen NEGATIVE (NEGATIVE) 06/20/17 23:25 U Cannabinoids Screen NEGATIVE (NEGATIVE) 06/20/17 23:25 Ethyl Alcohol < 10 mg/dL (0-10) 06/20/17 22:53 RPR NONREACTIVE (NONREACTIVE) 06/20/17 22:53 - Physical Exam Vitals and I&O: Vital Signs Temp 97.9 F 06/28/17 20:00 Pulse 64 06/28/17 20:00 Resp 19 06/28/17 20:00 BP 123/60 06/28/17 20:00 Pulse Ox 98 06/28/17 20:00 Intake & Output 06/28/17 06/29/17 06/29/17 18:59 06:59 18:59 Intake Total 1200 460 Balance 1200 460 Intake: Oral 1200 460 Other: # Voids 4 1 Active Medications: Current Medications Acetaminophen (Tylenol) 650 mg PO Q4HR PRN PRN Reason: Pain or Fever >101 Stop: 08/20/17 00:49 Cholecalciferol (Vitamin D3) 1,000 iu PO DAILY [facility] Stop: 08/20/17 08:59 Last Admin: 06/29/17 09:26 Dose: 1,000 iu Dextrose (D50w) 50 ml IVP PRN PRN PRN Reason: HYPOGLYCEMIA LESS THAN 70 Stop: 08/20/17 01:13 Docusate Sodium (Colace) 100 mg PO BID [facility] Stop: 08/20/17 08:59 Last Admin: 06/29/17 09:26 Dose: 100 mg Insulin Aspart (Novolog Insulin Sliding Scale) 0 units SUBQ ACHS SURAJ PRN Reason: Protocol Stop: 08/20/17 07:29 Last Admin: 06/29/17 06:30 Dose: 2 units Insulin Detemir (Levemir Insulin) 20 units SUBQ Q12HR [facility] Stop: 08/20/17 08:59 Last Admin: 06/29/17 09:25 Dose: 20 units Lorazepam (Ativan) 0.5 mg PO Q6HR PRN; Protocol PRN Reason: Anxiety Stop: 07/21/17 00:29 Last Admin: 06/28/17 20:19 Dose: 0.5 mg Magnesium Hydroxide (Milk Of Magnesia) 30 ml PO DAILY PRN PRN Reason: Constipation Stop: 08/20/17 00:49 Metformin HCl (Glucophage) 1,000 mg PO BIDWM [facility] Stop: 08/20/17 07:59 Last Admin: 06/29/17 09:00 Dose: 1,000 mg Quetiapine Fumarate (Seroquel) 25 mg PO BID SURAJ PRN Reason: Protocol Stop: 08/25/17 08:59 Last Admin: 06/29/17 09:26 Dose: 25 mg Zolpidem Tartrate (Ambien) 5 mg PO HSMR1 PRN PRN Reason: Insomnia Stop: 08/20/17 00:29 Last Admin: 06/28/17 20:19 Dose: 5 mg General: demented HEENT: NC/AT, PERRLA, poor dentition Neck: Supple, No JVD, No thyromegaly Lungs: CTAB Cardiovascular: RRR, Normal S1, Normal S2 Abdomen: soft, non-tender, globular, positive bowel sound Extremities: excoriation Neurological: no change, disorganized Internal Medicine Assmt/Plan - Assessment Assessment: Diabetes, obesity, hyponatremia, low albumin, hypertension, cardiomegaly, schizoaffective disorder, hypercholesterolemia. - Plan Plan: Continue the patient on ADA diet and insulin sliding scale Continue on angiotensin converting enzyme inhibitor Continue with current care Nutritional Asmnt/Malnutr-PDOC - Dietary Evaluation Malnutrition Findings (Please click <Entered> for more info): Nutritional Asmnt/Malnutrition Start: 06/21/17 14: 23 Text: Status: Complete Freq: Document 06/21/17 14:23 LCEVERARDOG (Rec: 06/21/17 14:32 LCEVERARDOG [email or web address]) Nutritional Asmnt/Malnutrition Patient General Information Nutritional Screening High Risk Diagnosis psychosis Pertinent Medical Hx/Surgical Hx HTN, DM, dyslipidemia, bipolar Subjective Information Pt seen sitting in his room having lunch. Pt stated good appetite, no question about current diet, not interested in nutrition infomation about [facility] diet. Current Diet Order/ Nutrition Support [facility]-60gm Pertinent Medications vit D3, colace, novolog, levemir, glucophage Pertinent Labs 06/20 Na 132, glucose 261, AST 7 Nutritional Hx/Data Height 5 ft 4 in Height (Calculated Centimeters) 162.6 Current Weight (lbs) 210 lb Weight (Calculated Kilograms) 95.3 Weight (Calculated Grams) 13398.4 [place] Body Weight 130 Body Mass Index (BMI) 36.0 Weight Status Obese GI Symptoms GI Symptoms None Last BM not indicated Skin Integrity/Comment: leonel score 21 Current %PO Good (75-100%) Estimated Nutritional Goals BEE in Kcals: Adj wt of IBW Calories/Kcals/Kg 25-30 Kcals Calculated 0352-1304 Protein: Adj wt of IBW Protein g/k-1.2 Protein Calculated 68-82 Fluid: ml 1700-2040ml (1ml/kcal) Nutritional Problem 1. Problem Problem altered nutrition related labs Etiology hx of DM Signs/Symptoms: glucose 261 Malnutrition Alert Protein-Calorie Malnutrition N/A Is there a minimum of two criteria No selected? Query Text:Check all the applicable criteria. A minimum of two criteria are recommended for diagnosis of either severe or non-severe malnutrition. Intervention/Recommendation Comments 1. Continue with CCHO-60gm diet as ordered. 2. Monitor PO intake, wt, labs and skin integrity 3. F/U as moderate risk in 3-5 days, 06/24-06/26 Expected Outcomes/Goals Expected Outcomes/Goals 1. PO intake to meet at least 75% of nutritional needs. 2. Wt stability, skin to remain intact, labs to approach WNL.
--- NOTE | 2017-06-30 02:07 | Progress Notes ---
DATE: 06/29/2017 SUBJECTIVE: Staff was spoken to. The patient is interviewed. Mood is noted to be less irritable, but the patient has been having a difficult time. The patient is still confused and has been getting into other people's rooms and needs to be redirected. No side effects to the medications are noted. The patient is currently on Seroquel, which is being given at 25 mg twice a day and it is going to be increased to 50 mg twice a day and the patient is going to be followed up with the supportive therapy. The patient is still impulsive and he is not able to contract for safety and hence, the patient is not discharged to a lower level of care. ASSESSMENT: The patient is still psychotic. PLAN: To increase the dose on the medications and follow up with supportive therapy. JOB# [id number]
[2017-06-30] MEDS: INSULIN ASPART SLIDING SCALE 100 UNITS/ML UNIT SUBQ SCH ×4 (06:29→20:35)
[2017-06-30] MEDS: Insulin Detemir 100 units/mL 10mL Vial SUBQ SCH ×2 (09:35→20:35)
--- NOTE | 2017-06-30 12:48 | Internal Medicine Prog Note ---
Internal Medicine Subjective - Subjective Patient seen and examined:: with staff, chart reviewed Patient is:: awake, verbal, interactive Patient Complaints of:: congestion Per staff patient has:: no adverse event, no episodes of fall, eating well, combative, tolerating meds Internal Medicine Objective - Results Result Diagrams: 06/20/17 22:53 06/20/17 22:53 Recent Labs: Laboratory Last Values WBC 10.7 Th/cmm (4.8-10.8) 06/20/17 22:53 RBC 5.42 Mil/cmm (3.80-5.80) 06/20/17 22:53 Hgb 14.7 gm/dL (12-16) 06/20/17 22:53 Hct 44.6 % (41.0-60) 06/20/17 22:53 MCV 82.3 fl (80-99) 06/20/17 22:53 MCH 27.1 pg (27.0-31.0) 06/20/17 22:53 MCHC Differential 32.9 pg (28.0-36.0) 06/20/17 22:53 RDW 13.3 % (11.5-20.0) 06/20/17 22:53 Plt Count 346 Th/cmm (150-400) 06/20/17 22:53 MPV 6.8 fl 06/20/17 22:53 Neutrophils % 72.0 % (40.0-80.0) 06/20/17 22:53 Lymphocytes % 20.4 % (20.0-50.0) 06/20/17 22:53 Monocytes % 3.7 % (2.0-10.0) 06/20/17 22:53 Eosinophils % 3.6 % (0.0-5.0) 06/20/17 22:53 Basophils % 0.3 % (0.0-2.0) 06/20/17 22:53 Sodium 132 mEq/L (136-145) L 06/20/17 22:53 Potassium 4.0 mEq/L (3.5-5.1) 06/20/17 22:53 Chloride 101 mEq/L (98-107) 06/20/17 22:53 Carbon Dioxide 25.3 mEq/L (21.0-31.0) 06/20/17 22:53 Anion Gap 9.7 (7.0-16.0) 06/20/17 22:53 BUN 12 mg/dL (7-25) 06/20/17 22:53 Creatinine 0.8 mg/dL (0.7-1.3) 06/20/17 22:53 Est GFR ( Amer) > 60.0 ml/min (>90) 06/20/17 22:53 Est GFR (Non-Af Amer) > 60.0 ml/min 06/20/17 22:53 BUN/Creatinine Ratio 15.0 06/20/17 22:53 Glucose 261 mg/dL (70-105) H 06/20/17 22:53 POC Glucose 81 MG/DL (70 - 105) 06/30/17 11:43 Hemoglobin A1c % 8.5 % (4.0-6.0) H 06/20/17 22:53 Calcium 9.1 mg/dL (8.6-10.3) 06/20/17 22:53 Total Bilirubin 0.6 mg/dL (0.3-1.0) 06/20/17 22:53 AST 7 U/L (13-39) L 06/20/17 22:53 ALT 9 U/L (7-52) 06/20/17 22:53 Alkaline Phosphatase 80 U/L (34-104) 06/20/17 22:53 Total Protein 6.4 gm/dL (6.0-8.3) 06/20/17 22:53 Albumin 3.6 gm/dL (4.2-5.5) L 06/20/17 22:53 Globulin 2.8 gm/dL 06/20/17 22:53 Albumin/Globulin Ratio 1.3 (1.0-1.8) 06/20/17 22:53 Triglycerides 138 mg/dL (<150) 06/20/17 22:53 Cholesterol 174 mg/dL (<200) 06/20/17 22:53 LDL Cholesterol Direct 118 mg/dL (75-193) 06/20/17 22:53 HDL Cholesterol 42 mg/dL (23-92) 06/20/17 22:53 TSH 2.62 uIU/ml (0.34-5.60) 06/20/17 22:53 Urine Source CLEAN C 06/20/17 23:25 Urine Color YELLOW 06/20/17 23:25 Urine Clarity CLEAR (CLEAR) 06/20/17 23:25 Urine pH 5.5 (4.6 - 8.0) 06/20/17 23:25 Ur Specific [place] >= 1.030 (1.005-1.030) 06/20/17 23:25 Urine Protein NEGATIVE mg/dL (NEGATIVE) 06/20/17 23:25 Urine Glucose (UA) >=1000 mg/dL (NEGATIVE) H 06/20/17 23:25 Urine Ketones NEGATIVE mg/dL (NEGATIVE) 06/20/17 23:25 Urine Blood NEGATIVE (NEGATIVE) 06/20/17 23:25 Urine Nitrate NEGATIVE (NEGATIVE) 06/20/17 23:25 Urine Bilirubin NEGATIVE (NEGATIVE) 06/20/17 23: Urine Urobilinogen 1.0 E.U./dL (0.2 - 1.0) 06/20/17 23:25 Ur Leukocyte Esterase NEGATIVE (NEGATIVE) 06/20/17 23:25 Urine RBC 0-2 /hpf (0-5) H 06/20/17 23:25 Urine WBC 0-2 /hpf (0-5) 06/20/17 23:25 Ur Epithelial Cells OCCASIONAL /lpf (FEW) 06/20/17 23:25 Urine Bacteria OCCASIONAL /hpf (NONE SEEN) 06/20/17 23:25 Urine Mucus FEW /lpf (FEW) 06/20/17 23:25 Salicylates < 25.0 mg/L (30.0-100.0) L 06/20/17 22:53 Urine Opiates Screen NEGATIVE (NEGATIVE) 06/20/17 23:25 Urine Methadone Screen NEGATIVE (NEGATIVE) 06/20/17 23: Acetaminophen < 10.0 ug/mL (10.0-30.0) L 06/20/17 22:53 Ur Barbiturates Screen NEGATIVE (NEGATIVE) 06/20/17 23:25 Ur Tricyclics Screen NEGATIVE (NEGATIVE) 06/20/17 23:25 Ur Phencyclidine Scrn NEGATIVE (NEGATIVE) 06/20/17 23:25 Amphetamines Screen NEGATIVE (NEGATIVE) 06/20/17 23:25 U Methamphetamines Scrn NEGATIVE (NEGATIVE) 06/20/17 23:25 U Benzodiazepines Scrn NEGATIVE (NEGATIVE) 06/20/17 23:25 U Cocaine Metab Screen NEGATIVE (NEGATIVE) 06/20/17 23:25 U Cannabinoids Screen NEGATIVE (NEGATIVE) 06/20/17 23:25 Ethyl Alcohol < 10 mg/dL (0-10) 06/20/17 22:53 RPR NONREACTIVE (NONREACTIVE) 06/20/17 22:53 - Physical Exam Vitals and I&O: Vital Signs Temp 98.0 F 06/29/17 15:42 Pulse 62 06/29/17 15:42 Resp 20 06/29/17 15:42 BP 129/67 06/29/17 15:42 Pulse Ox 97 06/29/17 15:42 Intake & Output 06/29/17 06/30/17 06/30/17 18:59 06:59 18:59 Intake Total 1200 Balance 1200 Intake: Oral 1200 Other: # Voids 4 Active Medications: Current Medications Acetaminophen (Tylenol) 650 mg PO Q4HR PRN PRN Reason: Pain or Fever >101 Stop: 08/20/17 00:49 Cholecalciferol (Vitamin D3) 1,000 iu PO DAILY [facility] Stop: 08/20/17 08:59 Last Admin: 06/30/17 09:35 Dose: 1,000 iu Dextrose (D50w) 50 ml IVP PRN PRN PRN Reason: HYPOGLYCEMIA LESS THAN 70 Stop: 08/20/17 01:13 Docusate Sodium (Colace) 100 mg PO BID [facility] Stop: 08/20/17 08:59 Last Admin: 06/30/17 09:45 Dose: Not Given Insulin Aspart (Novolog Insulin Sliding Scale) 0 units SUBQ ACHS SURAJ PRN Reason: Protocol Stop: 08/20/17 07:29 Last Admin: 06/30/17 12:37 Dose: Not Given Insulin Detemir (Levemir Insulin) 20 units SUBQ Q12HR [facility] Stop: 08/20/17 08:59 Last Admin: 06/30/17 09:35 Dose: 20 units Lorazepam (Ativan) 0.5 mg PO Q6HR PRN; Protocol PRN Reason: Anxiety Stop: 07/21/17 00:29 Last Admin: 06/28/17 20:19 Dose: 0.5 mg Magnesium Hydroxide (Milk Of Magnesia) 30 ml PO DAILY PRN PRN Reason: Constipation Stop: 08/20/17 00:49 Metformin HCl (Glucophage) 1,000 mg PO BIDWM [facility] Stop: 08/20/17 07:59 Last Admin: 06/30/17 09:00 Dose: 1,000 mg Quetiapine Fumarate (Seroquel) 50 mg PO BID SURAJ PRN Reason: Protocol Stop: 08/28/17 19:00 Last Admin: 06/30/17 09:35 Dose: 50 mg Zolpidem Tartrate (Ambien) 5 mg PO HSMR1 PRN PRN Reason: Insomnia Stop: 08/20/17 00:29 Last Admin: 06/28/17 20:19 Dose: 5 mg General: demented HEENT: NC/AT, PERRLA, poor dentition Neck: Supple, No JVD, No thyromegaly Lungs: CTAB Cardiovascular: RRR, Normal S1, Normal S2 Abdomen: soft, non-tender, globular, positive bowel sound Extremities: excoriation Neurological: no change, disorganized Internal Medicine Assmt/Plan - Assessment Assessment: ASSESSMENT AND PLAN: Diabetes, obesity, hyponatremia, low albumin, hypertension, cardiomegaly, schizoaffective disorder, hypercholesterolemia. - Plan Plan: Continue the patient on ADA diet and insulin sliding scale. Continue on an angiotensin converting enzyme inhibitor. We will correct electrolyte abnormalities. Continue with current care and follow consult recommendations. Nutritional Asmnt/Malnutr-PDOC - Dietary Evaluation Malnutrition Findings (Please click <Entered> for more info): Nutritional Asmnt/Malnutrition Start: 06/21/17 14: 23 Text: Status: Complete Freq: Document 06/21/17 14:23 LCHENG (Rec: 06/21/17 14:32 LCEVERARDOG [email or web address]) Nutritional Asmnt/Malnutrition Patient General Information Nutritional Screening High Risk Diagnosis psychosis Pertinent Medical Hx/Surgical Hx HTN, DM, dyslipidemia, bipolar Subjective Information Pt seen sitting in his room having lunch. Pt stated good appetite, no question about current diet, not interested in nutrition infomation about [facility] diet. Current Diet Order/ Nutrition Support [facility]-60gm Pertinent Medications vit D3, colace, novolog, levemir, glucophage Pertinent Labs 06/20 Na 132, glucose 261, AST 7 Nutritional Hx/Data Height 1.63 m Height (Calculated Centimeters) 162.6 Current Weight (lbs) 95.254 kg Weight (Calculated Kilograms) 95.3 Weight (Calculated Grams) 78478.4 [place] Body Weight 130 Body Mass Index (BMI) 36.0 Weight Status Obese GI Symptoms GI Symptoms None Last BM not indicated Skin Integrity/Comment: leonel score 21 Current %PO Good (75-100%) Estimated Nutritional Goals BEE in Kcals: Adj wt of IBW Calories/Kcals/Kg 25-30 Kcals Calculated 1713-0654 Protein: Adj wt of IBW Protein g/k-1.2 Protein Calculated 68-82 Fluid: ml 1700-2040ml (1ml/kcal) Nutritional Problem 1. Problem Problem altered nutrition related labs Etiology hx of DM Signs/Symptoms: glucose 261 Malnutrition Alert Protein-Calorie Malnutrition N/A Is there a minimum of two criteria No selected? Query Text:Check all the applicable criteria. A minimum of two criteria are recommended for diagnosis of either severe or non-severe malnutrition. Intervention/Recommendation Comments 1. Continue with CCHO-60gm diet as ordered. 2. Monitor PO intake, wt, labs and skin integrity 3. F/U as moderate risk in 3-5 days, 06/24-06/26 Expected Outcomes/Goals Expected Outcomes/Goals 1. PO intake to meet at least 75% of nutritional needs. 2. Wt stability, skin to remain intact, labs to approach WNL.
--- NOTE | 2017-06-30 23:16 | Progress Notes ---
DATE: 06/30/2017 SUBJECTIVE: Staff was spoken to. The patient is interviewed. Mood is noted to be irritable. Affect is constricted. Coping skills at this time are noted to be still poor. Insight and judgment also noted to be very much impaired. The patient has been, however, stating that his sleep and appetite are improving. He is not trying to bother anyone. The patient is being closely monitored for impulsive behavior. ASSESSMENT: The patient is still having the mood swings and impulsivity. The patient's psychosis is resolving. PLAN: To continue the patient with the supportive therapy. Encouraged the patient to verbalize the concerns rather than to act out. The patient is currently on the Seroquel, which is being given at 50 mg twice a day and the patient is going to be closely monitored with this medication. Plan to continue the patient with the supportive therapy and followup. JOB# [id number]
[2017-07-01] MEDS: INSULIN ASPART SLIDING SCALE 100 UNITS/ML UNIT SUBQ SCH ×4 (06:31→20:49)
[2017-07-01] MEDS: Insulin Detemir 100 units/mL 10mL Vial SUBQ SCH ×2 (09:18→20:47)
--- NOTE | 2017-07-01 13:51 | Internal Medicine Prog Note ---
Internal Medicine Subjective - Subjective Patient seen and examined:: with staff, chart reviewed Patient is:: awake, verbal, interactive Patient Complaints of:: congestion Per staff patient has:: no adverse event, no episodes of fall, eating well, combative, tolerating meds Internal Medicine Objective - Results Result Diagrams: 06/20/17 22:53 06/20/17 22:53 Recent Labs: Laboratory Last Values WBC 10.7 Th/cmm (4.8-10.8) 06/20/17 22:53 RBC 5.42 Mil/cmm (3.80-5.80) 06/20/17 22:53 Hgb 14.7 gm/dL (12-16) 06/20/17 22:53 Hct 44.6 % (41.0-60) 06/20/17 22:53 MCV 82.3 fl (80-99) 06/20/17 22:53 MCH 27.1 pg (27.0-31.0) 06/20/17 22:53 MCHC Differential 32.9 pg (28.0-36.0) 06/20/17 22:53 RDW 13.3 % (11.5-20.0) 06/20/17 22:53 Plt Count 346 Th/cmm (150-400) 06/20/17 22:53 MPV 6.8 fl 06/20/17 22:53 Neutrophils % 72.0 % (40.0-80.0) 06/20/17 22:53 Lymphocytes % 20.4 % (20.0-50.0) 06/20/17 22:53 Monocytes % 3.7 % (2.0-10.0) 06/20/17 22:53 Eosinophils % 3.6 % (0.0-5.0) 06/20/17 22:53 Basophils % 0.3 % (0.0-2.0) 06/20/17 22:53 Sodium 132 mEq/L (136-145) L 06/20/17 22:53 Potassium 4.0 mEq/L (3.5-5.1) 06/20/17 22:53 Chloride 101 mEq/L (98-107) 06/20/17 22:53 Carbon Dioxide 25.3 mEq/L (21.0-31.0) 06/20/17 22:53 Anion Gap 9.7 (7.0-16.0) 06/20/17 22:53 BUN 12 mg/dL (7-25) 06/20/17 22:53 Creatinine 0.8 mg/dL (0.7-1.3) 06/20/17 22:53 Est GFR ( Amer) > 60.0 ml/min (>90) 06/20/17 22:53 Est GFR (Non-Af Amer) > 60.0 ml/min 06/20/17 22:53 BUN/Creatinine Ratio 15.0 06/20/17 22:53 Glucose 261 mg/dL (70-105) H 06/20/17 22:53 POC Glucose 233 MG/DL (70 - 105) H 07/01/17 11:10 Hemoglobin A1c % 8.5 % (4.0-6.0) H 06/20/17 22:53 Calcium 9.1 mg/dL (8.6-10.3) 06/20/17 22:53 Total Bilirubin 0.6 mg/dL (0.3-1.0) 06/20/17 22:53 AST 7 U/L (13-39) L 06/20/17 22:53 ALT 9 U/L (7-52) 06/20/17 22:53 Alkaline Phosphatase 80 U/L (34-104) 06/20/17 22:53 Total Protein 6.4 gm/dL (6.0-8.3) 06/20/17 22:53 Albumin 3.6 gm/dL (4.2-5.5) L 06/20/17 22:53 Globulin 2.8 gm/dL 06/20/17 22:53 Albumin/Globulin Ratio 1.3 (1.0-1.8) 06/20/17 22:53 Triglycerides 138 mg/dL (<150) 06/20/17 22:53 Cholesterol 174 mg/dL (<200) 06/20/17 22:53 LDL Cholesterol Direct 118 mg/dL (75-193) 06/20/17 22:53 HDL Cholesterol 42 mg/dL (23-92) 06/20/17 22:53 TSH 2.62 uIU/ml (0.34-5.60) 06/20/17 22:53 Urine Source CLEAN C 06/20/17 23:25 Urine Color YELLOW 06/20/17 23:25 Urine Clarity CLEAR (CLEAR) 06/20/17 23:25 Urine pH 5.5 (4.6 - 8.0) 06/20/17 23:25 Ur Specific [place] >= 1.030 (1.005-1.030) 06/20/17 23:25 Urine Protein NEGATIVE mg/dL (NEGATIVE) 06/20/17 23:25 Urine Glucose (UA) >=1000 mg/dL (NEGATIVE) H 06/20/17 23:25 Urine Ketones NEGATIVE mg/dL (NEGATIVE) 06/20/17 23:25 Urine Blood NEGATIVE (NEGATIVE) 06/20/17 23:25 Urine Nitrate NEGATIVE (NEGATIVE) 06/20/17 23:25 Urine Bilirubin NEGATIVE (NEGATIVE) 06/20/17 23: Urine Urobilinogen 1.0 E.U./dL (0.2 - 1.0) 06/20/17 23:25 Ur Leukocyte Esterase NEGATIVE (NEGATIVE) 06/20/17 23:25 Urine RBC 0-2 /hpf (0-5) H 06/20/17 23:25 Urine WBC 0-2 /hpf (0-5) 06/20/17 23:25 Ur Epithelial Cells OCCASIONAL /lpf (FEW) 06/20/17 23:25 Urine Bacteria OCCASIONAL /hpf (NONE SEEN) 06/20/17 23:25 Urine Mucus FEW /lpf (FEW) 06/20/17 23:25 Salicylates < 25.0 mg/L (30.0-100.0) L 06/20/17 22:53 Urine Opiates Screen NEGATIVE (NEGATIVE) 06/20/17 23:25 Urine Methadone Screen NEGATIVE (NEGATIVE) 06/20/17 23: Acetaminophen < 10.0 ug/mL (10.0-30.0) L 06/20/17 22:53 Ur Barbiturates Screen NEGATIVE (NEGATIVE) 06/20/17 23:25 Ur Tricyclics Screen NEGATIVE (NEGATIVE) 06/20/17 23:25 Ur Phencyclidine Scrn NEGATIVE (NEGATIVE) 06/20/17 23:25 Amphetamines Screen NEGATIVE (NEGATIVE) 06/20/17 23:25 U Methamphetamines Scrn NEGATIVE (NEGATIVE) 06/20/17 23:25 U Benzodiazepines Scrn NEGATIVE (NEGATIVE) 06/20/17 23:25 U Cocaine Metab Screen NEGATIVE (NEGATIVE) 06/20/17 23:25 U Cannabinoids Screen NEGATIVE (NEGATIVE) 06/20/17 23:25 Ethyl Alcohol < 10 mg/dL (0-10) 06/20/17 22:53 RPR NONREACTIVE (NONREACTIVE) 06/20/17 22:53 - Physical Exam Vitals and I&O: Vital Signs Temp 97.5 F 07/01/17 06:32 Pulse 78 07/01/17 06:32 Resp 20 07/01/17 06:32 BP 137/83 07/01/17 06:32 Pulse Ox 97 07/01/17 06:32 Intake & Output 06/30/17 07/01/17 07/01/17 18:59 06:59 18:59 Intake Total 1800 120 Balance 1800 120 Intake: Oral 1800 120 Other: # Voids 4 3 # Bowel Movements 1 Active Medications: Current Medications Acetaminophen (Tylenol) 650 mg PO Q4HR PRN PRN Reason: Pain or Fever >101 Stop: 08/20/17 00:49 Cholecalciferol (Vitamin D3) 1,000 iu PO DAILY [facility] Stop: 08/20/17 08:59 Last Admin: 07/01/17 09:18 Dose: 1,000 iu Dextrose (D50w) 50 ml IVP PRN PRN PRN Reason: HYPOGLYCEMIA LESS THAN 70 Stop: 08/20/17 01:13 Docusate Sodium (Colace) 100 mg PO BID [facility] Stop: 08/20/17 08:59 Last Admin: 07/01/17 09:18 Dose: 100 mg Insulin Aspart (Novolog Insulin Sliding Scale) 0 units SUBQ ACHS SURAJ PRN Reason: Protocol Stop: 08/20/17 07:29 Last Admin: 07/01/17 11:18 Dose: 4 units Insulin Detemir (Levemir Insulin) 20 units SUBQ Q12HR SURAJ Stop: 08/20/17 08:59 Last Admin: 07/01/17 09:18 Dose: 20 units Lorazepam (Ativan) 0.5 mg PO Q6HR PRN; Protocol PRN Reason: Anxiety Stop: 07/21/17 00:29 Last Admin: 06/30/17 20:34 Dose: 0.5 mg Magnesium Hydroxide (Milk Of Magnesia) 30 ml PO DAILY PRN PRN Reason: Constipation Stop: 08/20/17 00:49 Last Admin: 06/30/17 23:19 Dose: 30 ml Metformin HCl (Glucophage) 1,000 mg PO BIDWM SURAJ Stop: 08/20/17 07:59 Last Admin: 07/01/17 09:18 Dose: 1,000 mg Quetiapine Fumarate (Seroquel) 50 mg PO BID SURAJ PRN Reason: Protocol Stop: 08/28/17 19:00 Last Admin: 07/01/17 09:19 Dose: 50 mg Zolpidem Tartrate (Ambien) 5 mg PO HSMR1 PRN PRN Reason: Insomnia Stop: 08/20/17 00:29 Last Admin: 06/30/17 20:34 Dose: 5 mg General: demented HEENT: NC/AT, PERRLA, poor dentition Neck: Supple, No JVD, No thyromegaly Lungs: CTAB Cardiovascular: RRR, Normal S1, Normal S2 Abdomen: soft, non-tender, globular, positive bowel sound Extremities: excoriation Neurological: no change, disorganized Internal Medicine Assmt/Plan - Assessment Assessment: ASSESSMENT AND PLAN: Diabetes, obesity, hyponatremia, low albumin, hypertension, cardiomegaly, schizoaffective disorder, hypercholesterolemia. - Plan Plan: Continue the patient on ADA diet and insulin sliding scale. Continue on an angiotensin converting enzyme inhibitor. We will correct electrolyte abnormalities. Continue with current care and follow consult recommendations. Nutritional Asmnt/Malnutr-PDOC - Dietary Evaluation Malnutrition Findings (Please click <Entered> for more info): Nutritional Asmnt/Malnutrition Start: 06/21/17 14: 23 Text: Status: Complete Freq: Document 06/21/17 14:23 ANOOP (Rec: 06/21/17 14:32 EVERARDO [email or web address]) Nutritional Asmnt/Malnutrition Patient General Information Nutritional Screening High Risk Diagnosis psychosis Pertinent Medical Hx/Surgical Hx HTN, DM, dyslipidemia, bipolar Subjective Information Pt seen sitting in his room having lunch. Pt stated good appetite, no question about current diet, not interested in nutrition infomation about [facility] diet. Current Diet Order/ Nutrition Support [facility]-60gm Pertinent Medications vit D3, colace, novolog, levemir, glucophage Pertinent Labs 06/20 Na 132, glucose 261, AST 7 Nutritional Hx/Data Height 1.63 m Height (Calculated Centimeters) 162.6 Current Weight (lbs) 95.254 kg Weight (Calculated Kilograms) 95.3 Weight (Calculated Grams) 97312.4 [place] Body Weight 130 Body Mass Index (BMI) 36.0 Weight Status Obese GI Symptoms GI Symptoms None Last BM not indicated Skin Integrity/Comment: leonel score 21 Current %PO Good (75-100%) Estimated Nutritional Goals BEE in Kcals: Adj wt of IBW Calories/Kcals/Kg 25-30 Kcals Calculated 8929-0129 Protein: Adj wt of IBW Protein g/k-1.2 Protein Calculated 68-82 Fluid: ml 1700-2040ml (1ml/kcal) Nutritional Problem 1. Problem Problem altered nutrition related labs Etiology hx of DM Signs/Symptoms: glucose 261 Malnutrition Alert Protein-Calorie Malnutrition N/A Is there a minimum of two criteria No selected? Query Text:Check all the applicable criteria. A minimum of two criteria are recommended for diagnosis of either severe or non-severe malnutrition. Intervention/Recommendation Comments 1. Continue with CCHO-60gm diet as ordered. 2. Monitor PO intake, wt, labs and skin integrity 3. F/U as moderate risk in 3-5 days, 06/24-06/26 Expected Outcomes/Goals Expected Outcomes/Goals 1. PO intake to meet at least 75% of nutritional needs. 2. Wt stability, skin to remain intact, labs to approach WNL.
--- NOTE | 2017-07-01 17:03 | Progress Notes ---
DATE: 07/01/2017 SUBJECTIVE: Staff was spoken to. The patient is interviewed. Mood is noted to be less irritable. Affect is appropriate. The patient could be redirectable today. No side effects to the medications are noted. The patient is coming under control, but patient has paranoia. No side effects of medications are noted. ASSESSMENT: The patient is stabilizing. PLAN: To continue the patient with the current medication and possibly discharge the patient tomorrow for followup on outpatient basis. JOB# [id number]
[2017-07-02] MEDS: Insulin Detemir 100 units/mL 10mL Vial SUBQ SCH (08:54)
[2017-07-02] MEDS: INSULIN ASPART SLIDING SCALE 100 UNITS/ML UNIT SUBQ SCH (11:28)
--- NOTE | 2017-07-02 12:52 | Internal Medicine Prog Note ---
Internal Medicine Subjective - Subjective Service Date: 07/02/17 Patient is:: awake, verbal, interactive Patient Complaints of:: congestion Per staff patient has:: no adverse event, no episodes of fall, eating well, combative, tolerating meds Internal Medicine Objective - Results Result Diagrams: 06/20/17 22:53 06/20/17 22:53 Recent Labs: Laboratory Last Values WBC 10.7 Th/cmm (4.8-10.8) 06/20/17 22:53 RBC 5.42 Mil/cmm (3.80-5.80) 06/20/17 22:53 Hgb 14.7 gm/dL (12-16) 06/20/17 22:53 Hct 44.6 % (41.0-60) 06/20/17 22:53 MCV 82.3 fl (80-99) 06/20/17 22:53 MCH 27.1 pg (27.0-31.0) 06/20/17 22:53 MCHC Differential 32.9 pg (28.0-36.0) 06/20/17 22:53 RDW 13.3 % (11.5-20.0) 06/20/17 22:53 Plt Count 346 Th/cmm (150-400) 06/20/17 22:53 MPV 6.8 fl 06/20/17 22:53 Neutrophils % 72.0 % (40.0-80.0) 06/20/17 22:53 Lymphocytes % 20.4 % (20.0-50.0) 06/20/17 22:53 Monocytes % 3.7 % (2.0-10.0) 06/20/17 22:53 Eosinophils % 3.6 % (0.0-5.0) 06/20/17 22:53 Basophils % 0.3 % (0.0-2.0) 06/20/17 22:53 Sodium 132 mEq/L (136-145) L 06/20/17 22:53 Potassium 4.0 mEq/L (3.5-5.1) 06/20/17 22:53 Chloride 101 mEq/L (98-107) 06/20/17 22:53 Carbon Dioxide 25.3 mEq/L (21.0-31.0) 06/20/17 22:53 Anion Gap 9.7 (7.0-16.0) 06/20/17 22:53 BUN 12 mg/dL (7-25) 06/20/17 22:53 Creatinine 0.8 mg/dL (0.7-1.3) 06/20/17 22:53 Est GFR ( Amer) > 60.0 ml/min (>90) 06/20/17 22:53 Est GFR (Non-Af Amer) > 60.0 ml/min 06/20/17 22:53 BUN/Creatinine Ratio 15.0 06/20/17 22:53 Glucose 261 mg/dL (70-105) H 06/20/17 22:53 POC Glucose 97 MG/DL (70 - 105) 07/02/17 05:57 Hemoglobin A1c % 8.5 % (4.0-6.0) H 06/20/17 22:53 Calcium 9.1 mg/dL (8.6-10.3) 06/20/17 22:53 Total Bilirubin 0.6 mg/dL (0.3-1.0) 06/20/17 22:53 AST 7 U/L (13-39) L 06/20/17 22:53 ALT 9 U/L (7-52) 06/20/17 22:53 Alkaline Phosphatase 80 U/L (34-104) 06/20/17 22:53 Total Protein 6.4 gm/dL (6.0-8.3) 06/20/17 22:53 Albumin 3.6 gm/dL (4.2-5.5) L 06/20/17 22:53 Globulin 2.8 gm/dL 06/20/17 22:53 Albumin/Globulin Ratio 1.3 (1.0-1.8) 06/20/17 22:53 Triglycerides 138 mg/dL (<150) 06/20/17 22:53 Cholesterol 174 mg/dL (<200) 06/20/17 22:53 LDL Cholesterol Direct 118 mg/dL (75-193) 06/20/17 22:53 HDL Cholesterol 42 mg/dL (23-92) 06/20/17 22:53 TSH 2.62 uIU/ml (0.34-5.60) 06/20/17 22:53 Urine Source CLEAN C 06/20/17 23:25 Urine Color YELLOW 06/20/17 23:25 Urine Clarity CLEAR (CLEAR) 06/20/17 23:25 Urine pH 5.5 (4.6 - 8.0) 06/20/17 23:25 Ur Specific [place] >= 1.030 (1.005-1.030) 06/20/17 23:25 Urine Protein NEGATIVE mg/dL (NEGATIVE) 06/20/17 23:25 Urine Glucose (UA) >=1000 mg/dL (NEGATIVE) H 06/20/17 23:25 Urine Ketones NEGATIVE mg/dL (NEGATIVE) 06/20/17 23:25 Urine Blood NEGATIVE (NEGATIVE) 06/20/17 23:25 Urine Nitrate NEGATIVE (NEGATIVE) 06/20/17 23:25 Urine Bilirubin NEGATIVE (NEGATIVE) 06/20/17 23:25 Urine Urobilinogen 1.0 E.U./dL (0.2 - 1.0) 06/20/17 23:25 Ur Leukocyte Esterase NEGATIVE (NEGATIVE) 06/20/17 23:25 Urine RBC 0-2 /hpf (0-5) H 06/20/17 23:25 Urine WBC 0-2 /hpf (0-5) 06/20/17 23:25 Ur Epithelial Cells OCCASIONAL /lpf (FEW) 06/20/17 23:25 Urine Bacteria OCCASIONAL /hpf (NONE SEEN) 06/20/17 23:25 Urine Mucus FEW /lpf (FEW) 06/20/17 23:25 Salicylates < 25.0 mg/L (30.0-100.0) L 06/20/17 22:53 Urine Opiates Screen NEGATIVE (NEGATIVE) 06/20/17 23:25 Urine Methadone Screen NEGATIVE (NEGATIVE) 06/20/17 23:25 Acetaminophen < 10.0 ug/mL (10.0-30.0) L 06/20/17 22:53 Ur Barbiturates Screen NEGATIVE (NEGATIVE) 06/20/17 23:25 Ur Tricyclics Screen NEGATIVE (NEGATIVE) 06/20/17 23:25 Ur Phencyclidine Scrn NEGATIVE (NEGATIVE) 06/20/17 23:25 Amphetamines Screen NEGATIVE (NEGATIVE) 06/20/17 23:25 U Methamphetamines Scrn NEGATIVE (NEGATIVE) 06/20/17 23:25 U Benzodiazepines Scrn NEGATIVE (NEGATIVE) 06/20/17 23:25 U Cocaine Metab Screen NEGATIVE (NEGATIVE) 06/20/17 23:25 U Cannabinoids Screen NEGATIVE (NEGATIVE) 06/20/17 23:25 Ethyl Alcohol < 10 mg/dL (0-10) 06/20/17 22:53 RPR NONREACTIVE (NONREACTIVE) 06/20/17 22:53 - Physical Exam Vitals and I&O: Vital Signs Temp 97 F 07/02/17 06:27 Pulse 62 07/02/17 06:27 Resp 20 07/02/17 06:27 BP 129/80 07/02/17 06:27 Pulse Ox 98 07/02/17 06:27 Intake & Output 07/01/17 07/02/17 07/02/17 18:59 06:59 18:59 Intake Total 1200 120 Balance 1200 120 Intake: Oral 1200 120 Other: # Voids 4 3 Active Medications: Current Medications Acetaminophen (Tylenol) 650 mg PO Q4HR PRN PRN Reason: Pain or Fever >101 Stop: 08/20/17 00:49 Cholecalciferol (Vitamin D3) 1,000 iu PO DAILY [facility] Stop: 08/20/17 08:59 Last Admin: 07/02/17 08:56 Dose: 1,000 iu Dextrose (D50w) 50 ml IVP PRN PRN PRN Reason: HYPOGLYCEMIA LESS THAN 70 Stop: 08/20/17 01:13 Docusate Sodium (Colace) 100 mg PO BID [facility] Stop: 08/20/17 08:59 Last Admin: 07/02/17 08:56 Dose: 100 mg Insulin Aspart (Novolog Insulin Sliding Scale) 0 units SUBQ ACHS SURAJ PRN Reason: Protocol Stop: 08/20/17 07:29 Last Admin: 07/02/17 11:28 Dose: Not Given Insulin Detemir (Levemir Insulin) 20 units SUBQ Q12HR [facility] Stop: 08/20/17 08:59 Last Admin: 07/02/17 08:54 Dose: 20 units Lorazepam (Ativan) 0.5 mg PO Q6HR PRN; Protocol PRN Reason: Anxiety Stop: 07/21/17 00:29 Last Admin: 07/01/17 20:46 Dose: 0.5 mg Magnesium Hydroxide (Milk Of Magnesia) 30 ml PO DAILY PRN PRN Reason: Constipation Stop: 08/20/17 00:49 Last Admin: 06/30/17 23:19 Dose: 30 ml Metformin HCl (Glucophage) 1,000 mg PO BIDWM SURAJ Stop: 08/20/17 07:59 Last Admin: 07/02/17 08:56 Dose: 1,000 mg Quetiapine Fumarate (Seroquel) 50 mg PO BID SURAJ PRN Reason: Protocol Stop: 08/28/17 19:00 Last Admin: 07/02/17 08:57 Dose: 50 mg Zolpidem Tartrate (Ambien) 5 mg PO HSMR1 PRN PRN Reason: Insomnia Stop: 08/20/17 00:29 Last Admin: 07/01/17 20:46 Dose: 5 mg General: demented HEENT: NC/AT, PERRLA, poor dentition Neck: Supple, No JVD, No thyromegaly Lungs: CTAB Cardiovascular: RRR, Normal S1, Normal S2 Abdomen: soft, non-tender, globular, positive bowel sound Extremities: excoriation Neurological: no change, disorganized Internal Medicine Assmt/Plan - Assessment Assessment: Diabetes, obesity, hyponatremia, low albumin, hypertension, cardiomegaly, schizoaffective disorder, hypercholesterolemia. - Plan Plan: Continue the patient on ADA diet and insulin sliding scale Continue on angiotensin converting enzyme inhibitor Continue with current care Nutritional Asmnt/Malnutr-PDOC - Dietary Evaluation Malnutrition Findings (Please click <Entered> for more info): Nutritional Asmnt/Malnutrition Start: 06/21/17 14: 23 Text: Status: Complete Freq: Document 06/21/17 14:23 ANOOP (Rec: 06/21/17 14:32 EVERARDOG [email or web address]) Nutritional Asmnt/Malnutrition Patient General Information Nutritional Screening High Risk Diagnosis psychosis Pertinent Medical Hx/Surgical Hx HTN, DM, dyslipidemia, bipolar Subjective Information Pt seen sitting in his room having lunch. Pt stated good appetite, no question about current diet, not interested in nutrition infomation about [facility] diet. Current Diet Order/ Nutrition Support [facility] [place]-60gm Pertinent Medications vit D3, colace, novolog, levemir, glucophage Pertinent Labs 06/20 Na 132, glucose 261, AST 7 Nutritional Hx/Data Height 5 ft 4 in Height (Calculated Centimeters) 162.6 Current Weight (lbs) 210 lb Weight (Calculated Kilograms) 95.3 Weight (Calculated Grams) 30664.4 [place] Body Weight 130 Body Mass Index (BMI) 36.0 Weight Status Obese GI Symptoms GI Symptoms None Last BM not indicated Skin Integrity/Comment: leonel score 21 Current %PO Good (75-100%) Estimated Nutritional Goals BEE in Kcals: Adj wt of IBW Calories/Kcals/Kg 25-30 Kcals Calculated 1794-2269 Protein: Adj wt of IBW Protein g/k-1.2 Protein Calculated 68-82 Fluid: ml 1700-2040ml (1ml/kcal) Nutritional Problem 1. Problem Problem altered nutrition related labs Etiology hx of DM Signs/Symptoms: glucose 261 Malnutrition Alert Protein-Calorie Malnutrition N/A Is there a minimum of two criteria No selected? Query Text:Check all the applicable criteria. A minimum of two criteria are recommended for diagnosis of either severe or non-severe malnutrition. Intervention/Recommendation Comments 1. Continue with CCHO-60gm diet as ordered. 2. Monitor PO intake, wt, labs and skin integrity 3. F/U as moderate risk in 3-5 days, 06/24-06/26 Expected Outcomes/Goals Expected Outcomes/Goals 1. PO intake to meet at least 75% of nutritional needs. 2. Wt stability, skin to remain intact, labs to approach WNL.
--- NOTE | 2017-07-03 00:21 | Progress Notes ---
DATE: 07/02/2017 PSYCHIATRIC PROGRESS NOTE SUBJECTIVE: Staff was spoken to. The patient is interviewed. Mood is noted to be anxious. The patient's coping skills are noted to be improving. The patient's insight and judgment are noted to be fair. Impulse control is also noted to be fair. No side effects to the medications are noted. ASSESSMENT: The patient is stabilizing. PLAN: To discharge the patient today for followup on outpatient basis. [facility]# [id number]
== END 2017-07-02 14:20 | DRG 885 ==
LOC: ER 22:27 → GERO2 23:25 → GERO 06-21 15:23
DX: F33.1 Major depressive disorder, recurrent, moderate (principal); E11.65 Type 2 diabetes mellitus with hyperglycemia; E87.1 Hypo-osmolality and hyponatremia; E78.5 Hyperlipidemia, unspecified; E66.9 Obesity, unspecified; I11.9 Hypertensive heart disease without heart failure; E78.00 Pure hypercholesterolemia, unspecified; Z86.59 Personal history of other mental and behavioral disorders; Z83.3 Family history of diabetes mellitus; Z82.49 Family history of ischemic heart disease and other diseases of the circulatory system; Z68.36 Body mass index [BMI] 36.0-36.9, adult
CPT/HCPCS: 36415-UA; 80053-TC; 80061-TC; 80307; 80320-TC; 80329-TC; 81001-TC; 82948-90; 83036-90; 84443-TC; 85025-TC; 86592-TC; 90899; 93005; G0410; J1815; J7799; Z7610

== ENCOUNTER 2018-01-27 14:25 | Inpatient (IN) | payer MEDICARE, OTHER ==
[2018-01-27 14:45] LABS: % BASOPHILS 0.1 % (0.0-2.0); % EOSINOPHILS 2.5 % (0.0-5.0); % LYMPHOCYTES 18.7 % (20.0-50.0); % MONOCYTES 1.7 % (2.0-10.0); EOSINOPHILE ABSOLUTE 0.3 Th/cmm (0.1-0.4); HEMATOCRIT 43.9 % (41.0-60); HEMOGLOBIN 14.9 gm/dL (12-16); MEAN CELL VOLUME 80.6 fl (80-99); MEAN CORPUSCULAR HEMOGLOBIN 27.4 pg (27.0-31.0); MEAN PLATELET VOLUME 6.9 fl; MONOCYTE ABSOLUTE 0.2 Th/cmm (0.3-1.0); NEUTROPHILE ABSOLUTE 8.3 Th/cmm (1.8-8.0); PLATELET COUNT 354 Th/cmm (150-400); RED BLOOD COUNT 5.44 Mil/cmm (3.80-5.80); RED CELL DISTRIBUTION WIDTH 12.8 % (11.5-20.0); WHITE BLOOD COUNT 10.8 Th/cmm (4.8-10.8)
[2018-01-27 14:53] LABS: URINE SOURCE CLEAN C
[2018-01-27 14:56] LABS: URINE BILIRUBIN NEGATIVE (NEGATIVE); URINE BLOOD NEGATIVE (NEGATIVE); URINE GLUCOSE (UA) >=1000 mg/dL (NEGATIVE); URINE KETONE TRACE mg/dL (NEGATIVE); URINE LEUKOCYTE ESTERASE NEGATIVE (NEGATIVE); URINE MICROSCOPIC INDICATED? YES; URINE NITRATE NEGATIVE (NEGATIVE); URINE PROTEIN NEGATIVE (NEGATIVE); URINE UROBILINOGEN 0.2 E.U./dL (0.2 - 1.0)
[2018-01-27 14:58] LABS: URINE CLARITY CLEAR (CLEAR); URINE COLOR YELLOW
[2018-01-27 15:00] LABS: URINE BACTERIA FEW /hpf (NONE SEEN); URINE EPITHELIAL CELLS FEW /lpf (FEW); URINE RBC 0-2 /hpf (0-5); URINE WBC 0-2 /hpf (0-5)
[2018-01-27 15:09] LABS: AMPHETAMINE URINE NEGATIVE (NEGATIVE); BARBITURATES URINE NEGATIVE (NEGATIVE); BENZODIAZEPINES QUAL URINE NEGATIVE (NEGATIVE); CANNABINOID THC NEGATIVE (NEGATIVE); COCAINE METABOLITE QUAL URINE NEGATIVE (NEGATIVE); METHADONE URINE NEGATIVE (NEGATIVE); METHAMPHETAMINES QUAL URINE NEGATIVE (NEGATIVE); OPIATES (MORPHINE) QUAL. URINE NEGATIVE (NEGATIVE); PHENCYCLIDINE (PCP) URINE NEGATIVE (NEGATIVE); TRICYCLICS (TCA) QUAL. URINE NEGATIVE (NEGATIVE)
[2018-01-27 17:09] LABS: ALB/GLOB RATIO 0.9 (1.0-1.8); ALBUMIN 3.4 gm/dL (4.2-5.5); ALKALINE PHOSPHATASE 89 U/L (34-104); ANION GAP 16.2 (7.0-16.0); BILIRUBIN,TOTAL 0.4 mg/dL (0.3-1.0); BUN - UREA NITROGEN 17 mg/dL (7-25); CALCIUM SERUM 9.4 mg/dL (8.6-10.3); CHLORIDE 98 mEq/L (98-107); CREATININE - SERUM 1.4 mg/dL (0.7-1.3); GFR AFRICAN-AMERICAN > 60.0 ml/min (>90); GFR NON AFRICAN-AMERICAN 53.7 ml/min; GLUCOSE 407 mg/dL (70-105); PHOSPHOROUS 3.3 mg/dL (2.5-5.0); POTASSIUM SERUM 4.2 mEq/L (3.5-5.1); SGOT 11 U/L (13-39); SGPT/ALT 17 U/L (7-52); SODIUM SERUM 133 mEq/L (136-145); TOTAL PROTEIN,SERUM 7.2 gm/dL (6.0-8.3)
[2018-01-27] MEDS ORDERED: Sodium Chloride 0.9% 1,000 ML IV ONE (17:14)
[2018-01-27] MEDS ORDERED: INSULIN HUMAN REGULAR 100 UNITS/ML UNIT IVP ONE (17:39)
[2018-01-27] MEDS ORDERED: INSULIN HUMAN REGULAR 100 UNITS/ML UNIT ONE (17:49)
--- NOTE | 2018-01-27 17:51 | ED Physician Chart ---
ED Chief Complaint/HPI - Patient Information Date Seen:: 01/27/18 Time Seen:: 14:32 Chief Complaint:: increased agitation History of Present Illness:: increased agitation Allergies:: Allergies Allergy/AdvReac Type Severity Reaction Status Date / Time No Known Allergies Allergy Verified 06/20/17 22:36 Vitals:: Vital Signs - 8 hr 01/27/18 01/27/18 14:32 16:59 Temp 98.1 F 98.4 F HR 62 68 RR 16 18 BP 152/83 113/64 O2 Sat % 98 95 Historian:: Medical Records Review:: Nurse's Note Reviewed, Transfer documents Reviewed ED Review of Systems - Review of Systems General/Constitutional: No fever, No chills, No weight loss, No weakness, No diaphoresis, No edema, No loss of appetite Skin: No skin lesions, No rash, No bruising Head: No headache, No light-headedness Eyes: No loss of vision, No pain, No diplopia ENT: No earache, No nasal drainage, No sore throat, No tinnitus Neck: No neck pain, No swelling, No thyromegaly, No stiffness, No mass noted Cardio Vascular: No chest pain, No palpitations, No PND, No orthopnea, No edema Pulmonary: No SOB, No cough, No sputum, No wheezing GI: No nausea, No vomiting, No diarrhea, No pain, No melena, No hematochezia, No constipation, No hematemesis G/U: No dysuria, No frequency, No hematuria Musculoskeletal: No bone or joint pain, No back pain, No muscle pain Endocrine: No polyuria, No polydipsia Psychiatric: Other (increased agitation) Hematopoietic: No bruising, No lymphadenopathy Allergic/Immuno: No urticaria, No angioedema Neurological: No syncope, No focal symptoms, No weakness, No paresthesia, No headache, No seizure, No dizziness, No confusion, No vertigo ED Past Medical History - Past Medical History Obtainable: No Past Medical History: DM Psychiatricy History: Depression, Schizophrenia, Bipolar, Other (psychosis) Family Medical History - Family Member Mother History Unknown: Yes Ethnicity: Hx Family Cancer: No Hx Family Coronary Artery Disease: No Hx Family Congestive Heart Failure: No Hx Family Hypertension: Yes Hx Family Stroke: No Hx Family Diabetes: Yes Hx Family Seizures: No Hx Family Dementia: Yes Hx Family AIDS: (UNKNOWN) Hx Family HIV: No Hx Family COPD: No Hx Family Hepatitis: No Hx Family Psychiatric Problems: (UNKNOWN) Hx Family Tuberculosis: No ED Physical Exam - Physical Examination General/Constitutional: Awake, Well-developed, well-nourished, Alert, No distress, Non-toxic appearing, Ambulatory Head: Atraumatic Eyes: Lids, conjuctiva normal, PERRL, EOMI Skin: Nl inspection, No rash, No skin lesions, No ecchymosis, Well hydrated, No lymphadenopathy ENMT: External ears, nose nl, Nasal exam nl, Lips, teeth, gums nl Neck: Nontender, Full ROM w/o pain, No JVD, No nuchal rigidity, No bruit, No mass, No stridor Respiratory: Nl effort/Exclusion, Clear to Auscultation, No Wheeze/Rhonchi/Rales Cardio Vascular: RRR, No murmur, gallop, rubs, NL S1 S2 GI: No tenderness/rebounding/guarding, No organomegaly, No hernia, Normal BS's, Nondistended, No mass/bruits, No McBurney tenderness : No CVA tenderness Extremities: No tenderness or effusion, Full ROM, normal strength in all extremities, No edema, Normal digits & nails Neuro/Psych: Alert/oriented, Normal sensory exam, Normal motor strength, Judgement/insight normal, Mood normal, Normal gait, No focal deficits Misc: Normal back, No paraspinal tenderness ED Labs/Radiology/EKG Results - Lab Results Results: Laboratory Tests 01/27/18 01/27/18 01/27/18 14:30 14:30 14:37 WBC 10.8 RBC 5.44 Hgb 14.9 Hct 43.9 MCV 80.6 MCH 27.4 MCHC Differential 34.0 RDW 12.8 Plt Count 354 MPV 6.9 Neutrophils % 77.0 Lymphocytes % 18.7 L Monocytes % 1.7 L Eosinophils % 2.5 Basophils % 0.1 Sodium Potassium Chloride Carbon Dioxide Anion Gap BUN Creatinine Est GFR ( Amer) Est GFR (Non-Af Amer) BUN/Creatinine Ratio Glucose POC Glucose Calcium Phosphorus Magnesium Total Bilirubin AST ALT Alkaline Phosphatase Total Protein Albumin Globulin Albumin/Globulin Ratio TSH Urine Source CLEAN C Urine Color YELLOW Urine Clarity CLEAR Urine pH 6.0 Ur Specific [place] 1.025 Urine Protein NEGATIVE Urine Glucose (UA) >=1000 H Urine Ketones TRACE Urine Blood NEGATIVE Urine Nitrate NEGATIVE Urine Bilirubin NEGATIVE Urine Urobilinogen 0.2 Ur Leukocyte Esterase NEGATIVE Urine RBC 0-2 H Urine WBC 0-2 Ur Epithelial Cells FEW Urine Bacteria FEW Urine Mucus FEW Urine Opiates Screen NEGATIVE Urine Methadone Screen NEGATIVE Ur Barbiturates Screen NEGATIVE Ur Tricyclics Screen NEGATIVE Ur Phencyclidine Scrn NEGATIVE Amphetamines Screen NEGATIVE U Methamphetamines Scrn NEGATIVE U Benzodiazepines Scrn NEGATIVE U Cocaine Metab Screen NEGATIVE U Cannabinoids Screen NEGATIVE 01/27/18 01/27/18 01/27/18 14:37 14:37 15:26 WBC RBC Hgb Hct MCV MCH MCHC Differential RDW Plt Count MPV Neutrophils % Lymphocytes % Monocytes % Eosinophils % Basophils % Sodium 133 L Potassium 4.2 Chloride 98 Carbon Dioxide 23.0 Anion Gap 16.2 H BUN 17 Creatinine 1.4 H Est GFR ( Amer) > 60.0 Est GFR (Non-Af Amer) 53.7 BUN/Creatinine Ratio 12.1 Glucose 407 H POC Glucose 344 H Calcium 9.4 Phosphorus 3.3 Magnesium 2.0 Total Bilirubin 0.4 AST 11 L ALT 17 Alkaline Phosphatase 89 Total Protein 7.2 Albumin 3.4 L Globulin 3.8 Albumin/Globulin Ratio 0.9 L TSH 1.11 Urine Source Urine Color Urine Clarity Urine pH Ur Specific [place] Urine Protein Urine Glucose (UA) Urine Ketones Urine Blood Urine Nitrate Urine Bilirubin Urine Urobilinogen Ur Leukocyte Esterase Urine RBC Urine WBC Ur Epithelial Cells Urine Bacteria Urine Mucus Urine Opiates Screen Urine Methadone Screen Ur Barbiturates Screen Ur Tricyclics Screen Ur Phencyclidine Scrn Amphetamines Screen U Methamphetamines Scrn U Benzodiazepines Scrn U Cocaine Metab Screen U Cannabinoids Screen 01/27/18 17:16 WBC RBC Hgb Hct MCV MCH MCHC Differential RDW Plt Count MPV Neutrophils % Lymphocytes % Monocytes % Eosinophils % Basophils % Sodium Potassium Chloride Carbon Dioxide Anion Gap BUN Creatinine Est GFR ( Amer) Est GFR (Non-Af Amer) BUN/Creatinine Ratio Glucose POC Glucose 361 H Calcium Phosphorus Magnesium Total Bilirubin AST ALT Alkaline Phosphatase Total Protein Albumin Globulin Albumin/Globulin Ratio TSH Urine Source Urine Color Urine Clarity Urine pH Ur Specific [place] Urine Protein Urine Glucose (UA) Urine Ketones Urine Blood Urine Nitrate Urine Bilirubin Urine Urobilinogen Ur Leukocyte Esterase Urine RBC Urine WBC Ur Epithelial Cells Urine Bacteria Urine Mucus Urine Opiates Screen Urine Methadone Screen Ur Barbiturates Screen Ur Tricyclics Screen Ur Phencyclidine Scrn Amphetamines Screen U Methamphetamines Scrn U Benzodiazepines Scrn U Cocaine Metab Screen U Cannabinoids Screen ED Assessment - Assessment General Assessment: after receiving a liter of fluid for renal insufficiency, the PATIENT WILL BE CLEARED MEDICALLY FROM A MEDICAL STANDPOINT. it took a while to get the chemistry results back because the chemistry machine was acting up. ED Septic Shock - . Is Septic Shock (SBP<90, OR Lactate>4 mmol\L) present?: No - <6hrs of presentation: Vital Signs: Vital Signs - 8 hr 01/27/18 01/27/18 14:32 16:59 Temp 98.1 F 98.4 F HR 62 68 RR 16 18 BP 152/83 113/64 O2 Sat % 98 95 ED Reassessment (Disposition) - Reassessment Reassessment Condition:: Improved - Diagnosis Diagnosis:: Increased agitation Schizophrenia Bipolar Depression Psychosis Diabetes mellitus Renal insufficiency after receiving a liter of fluid for renal insufficiency, the PATIENT WILL BE CLEARED MEDICALLY FROM A MEDICAL STANDPOINT. - Aftercare/Follow up Instructions Aftercare/Follow-Up Instructions:: Refer to Discharge Instructions Notes:: Tylenol or Motrin for pain Medication Prescribed:: Doxycycline 100 mg po bid # 20 - Patient Disposition Discharge/Transfer:: Acute Care w/in this hosp Admitted to:: [facility] Condition at Disposition:: Stable, Improved
[2018-01-27 18:31] VITALS: BP 113/64
[2018-01-27] MEDS ORDERED: Maalox 30 mL Cup PO PRN (18:45)
[2018-01-27] MEDS ORDERED: Magnesium Hydroxide (MOM) 30 mL UDC PO PRN (18:45)
[2018-01-27 19:13] LABS: CHOLESTEROL 167 mg/dL (<200); HDL -HIGH DENSITY LIPOPROTEIN 43 mg/dL (23-92); TRIGLYCERIDES 146 mg/dL (<150)
[2018-01-27] MEDS ORDERED: Fleet Enema 135 mL RC PRN (20:03)
[2018-01-27] MEDS: INSULIN ASPART SLIDING SCALE 100 UNITS/ML UNIT SUBQ SCH (20:53)
[2018-01-27] MEDS: Insulin Detemir 100 units/mL 10mL Vial SUBQ SCH (20:54)
[2018-01-28] MEDS: INSULIN ASPART SLIDING SCALE 100 UNITS/ML UNIT SUBQ SCH ×4 (06:45→21:18)
--- NOTE | 2018-01-28 08:53 | Diagnostic Imaging Report ---
Portable chest x-ray HISTORY: Shortness of breath The heart is enlarged. Atherosclerotic calcification seen in the aorta. No acute focal pulmonary processes. Degenerative changes seen throughout the spine. IMPRESSION: 1. No acute focal prominent processes 2. Cardiomegaly with atherosclerotic vascular changes
[2018-01-28] MEDS: Multivitamin Tab PO SCH (09:30)
[2018-01-28] MEDS ORDERED: Magnesium Hydroxide (MOM) 30 mL UDC PO PRN (12:15)
[2018-01-28] MEDS ORDERED: Maalox 30 mL Cup PO PRN (12:15)
--- NOTE | 2018-01-28 14:00 | Internal Medicine Prog Note ---
Internal Medicine Subjective - Subjective Service Date: 01/28/18 ([id number] [facility]) Internal Medicine Objective - Results Result Diagrams: 01/27/18 14:37 01/27/18 14:37 Recent Labs: Laboratory Last Values WBC 10.8 Th/cmm (4.8-10.8) 01/27/18 14:37 RBC 5.44 Mil/cmm (3.80-5.80) 01/27/18 14:37 Hgb 14.9 gm/dL (12-16) 01/27/18 14:37 Hct 43.9 % (41.0-60) 01/27/18 14:37 MCV 80.6 fl (80-99) 01/27/18 14:37 MCH 27.4 pg (27.0-31.0) 01/27/18 14:37 MCHC Differential 34.0 pg (28.0-36.0) 01/27/18 14:37 RDW 12.8 % (11.5-20.0) 01/27/18 14:37 Plt Count 354 Th/cmm (150-400) 01/27/18 14:37 MPV 6.9 fl 01/27/18 14:37 Neutrophils % 77.0 % (40.0-80.0) 01/27/18 14:37 Lymphocytes % 18.7 % (20.0-50.0) L 01/27/18 14:37 Monocytes % 1.7 % (2.0-10.0) L 01/27/18 14:37 Eosinophils % 2.5 % (0.0-5.0) 01/27/18 14:37 Basophils % 0.1 % (0.0-2.0) 01/27/18 14:37 Sodium 133 mEq/L (136-145) L 01/27/18 14:37 Potassium 4.2 mEq/L (3.5-5.1) 01/27/18 14:37 Chloride 98 mEq/L (98-107) 01/27/18 14:37 Carbon Dioxide 23.0 mEq/L (21.0-31.0) 01/27/18 14:37 Anion Gap 16.2 (7.0-16.0) H 01/27/18 14:37 BUN 17 mg/dL (7-25) 01/27/18 14:37 Creatinine 1.4 mg/dL (0.7-1.3) H 01/27/18 14:37 Est GFR ( Amer) > 60.0 ml/min (>90) 01/27/18 14:37 Est GFR (Non-Af Amer) 53.7 ml/min 01/27/18 14:37 BUN/Creatinine Ratio 12.1 01/27/18 14:37 Glucose 407 mg/dL (70-105) H 01/27/18 14:37 POC Glucose 376 MG/DL (70 - 105) H 01/28/18 11:47 Calcium 9.4 mg/dL (8.6-10.3) 01/27/18 14:37 Phosphorus 3.3 mg/dL (2.5-5.0) 01/27/18 14:37 Magnesium 2.0 mg/dL (1.9-2.7) 01/27/18 14:37 Total Bilirubin 0.4 mg/dL (0.3-1.0) 01/27/18 14:37 AST 11 U/L (13-39) L 01/27/18 14:37 ALT 17 U/L (7-52) 01/27/18 14:37 Alkaline Phosphatase 89 U/L (34-104) 01/27/18 14:37 Total Protein 7.2 gm/dL (6.0-8.3) 01/27/18 14:37 Albumin 3.4 gm/dL (4.2-5.5) L 01/27/18 14:37 Globulin 3.8 gm/dL 01/27/18 14:37 Albumin/Globulin Ratio 0.9 (1.0-1.8) L 01/27/18 14:37 Triglycerides 146 mg/dL (<150) 01/27/18 14:37 Cholesterol 167 mg/dL (<200) 01/27/18 14:37 LDL Cholesterol Direct 113 mg/dL (75-193) 01/27/18 14:37 HDL Cholesterol 43 mg/dL (23-92) 01/27/18 14:37 TSH 1.11 uIU/ml (0.34-5.60) 01/27/18 14:37 Urine Source CLEAN C 01/27/18 14:30 Urine Color YELLOW 01/27/18 14:30 Urine Clarity CLEAR (CLEAR) 01/27/18 14:30 Urine pH 6.0 (4.6 - 8.0) 01/27/18 14:30 Ur Specific [place] 1.025 (1.005-1.030) 01/27/18 14:30 Urine Protein NEGATIVE mg/dL (NEGATIVE) 01/27/18 14:30 Urine Glucose (UA) >=1000 mg/dL (NEGATIVE) H 01/27/18 14:30 Urine Ketones TRACE mg/dL (NEGATIVE) 01/27/18 14:30 Urine Blood NEGATIVE (NEGATIVE) 01/27/18 14:30 Urine Nitrate NEGATIVE (NEGATIVE) 01/27/18 14:30 Urine Bilirubin NEGATIVE (NEGATIVE) 01/27/18 14:30 Urine Urobilinogen 0.2 E.U./dL (0.2 - 1.0) 01/27/18 14:30 Ur Leukocyte Esterase NEGATIVE (NEGATIVE) 01/27/18 14:30 Urine RBC 0-2 /hpf (0-5) H 01/27/18 14:30 Urine WBC 0-2 /hpf (0-5) 01/27/18 14:30 Ur Epithelial Cells FEW /lpf (FEW) 01/27/18 14:30 Urine Bacteria FEW /hpf (NONE SEEN) 01/27/18 14:30 Urine Mucus FEW /lpf (FEW) 01/27/18 14:30 Urine Opiates Screen NEGATIVE (NEGATIVE) 01/27/18 14:30 Urine Methadone Screen NEGATIVE (NEGATIVE) 01/27/18 14:30 Ur Barbiturates Screen NEGATIVE (NEGATIVE) 01/27/18 14:30 Ur Tricyclics Screen NEGATIVE (NEGATIVE) 01/27/18 14:30 Ur Phencyclidine Scrn NEGATIVE (NEGATIVE) 01/27/18 14:30 Amphetamines Screen NEGATIVE (NEGATIVE) 01/27/18 14:30 U Methamphetamines Scrn NEGATIVE (NEGATIVE) 01/27/18 14:30 U Benzodiazepines Scrn NEGATIVE (NEGATIVE) 01/27/18 14:30 U Cocaine Metab Screen NEGATIVE (NEGATIVE) 01/27/18 14:30 U Cannabinoids Screen NEGATIVE (NEGATIVE) 01/27/18 14:30 - Physical Exam Vitals and I&O: Vital Signs Temp 99 F 01/28/18 06:08 Pulse 56 01/28/18 06:08 Resp 20 12/17/18 06:08 BP 134/78 01/28/18 06:08 Pulse Ox 94 01/28/18 06:08 Intake & Output 01/27/18 01/28/18 01/28/18 18:59 06:59 18:59 Weight (lbs) 210 lb 210 lb Other: # Voids 3 # Bowel Movements 0 Weight Source Patient stated Bedscale Active Medications: Current Medications Acetaminophen (Tylenol) 650 mg PO Q4HR PRN PRN Reason: Mild Pain 1-3 / Temp above 100 Stop: 03/28/18 18:44 Acetaminophen (Tylenol) 650 mg PO Q4HR PRN PRN Reason: Pain or Fever >101 Stop: 03/29/18 12:14 Al Hydrox/Mg Hydrox/Simethicone (Maalox) 30 ml PO Q4HR PRN PRN Reason: GI DISTRESS Stop: 03/28/18 18:44 Al Hydrox/Mg Hydrox/Simethicone (Maalox) 30 ml PO Q4HR PRN PRN Reason: GI DISTRESS Stop: 03/29/18 12:14 Bisacodyl (Dulcolax 10 Mg Supp) 10 mg RC DAILY PRN PRN Reason: IF MOM INEFFECTIVE Stop: 03/28/18 20:02 Docusate Sodium (Colace) 100 mg PO DAILY SURAJ Stop: 03/29/18 08:59 Last Admin: 01/28/18 09:30 Dose: 100 mg Famotidine (Pepcid) 40 mg PO HS SURAJ Stop: 03/28/18 20:59 Insulin Aspart (Novolog Insulin Sliding Scale) 0 units SUBQ ACHS SURAJ; Protocol Stop: 03/28/18 20:59 Last Admin: 01/28/18 11:56 Dose: 10 units Insulin Detemir (Levemir Insulin) 20 units SUBQ HS SURAJ; Protocol Stop: 03/28/18 20:59 Last Admin: 01/27/18 20:54 Dose: 20 units Lorazepam (Ativan) 0.5 mg PO Q4HR PRN; Protocol PRN Reason: Anxiety Stop: 02/26/18 18:44 Lorazepam (Ativan) 0.5 mg PO Q6HR PRN; Protocol PRN Reason: Anxiety Stop: 03/29/18 12:14 Magnesium Hydroxide (Milk Of Magnesia) 30 ml PO HS PRN PRN Reason: Constipation Magnesium Hydroxide (Milk Of Magnesia) 30 ml PO HS PRN PRN Reason: Constipation Stop: 03/29/18 12:14 Multivitamins/Vitamin C (Theragran) 1 tab PO DAILY SURAJ Stop: 03/29/18 08:59 Last Admin: 01/28/18 09:30 Dose: 1 tab Psyllium Hydrophilic Mucilloid (Metamucil) 1 pkt PO BID SURAJ Stop: 03/29/18 08:59 Last Admin: 01/28/18 09:30 Dose: 1 pkt Quetiapine Fumarate (Seroquel) 25 mg PO BID [facility]; Protocol Stop: 03/29/18 08:59 Last Admin: 01/28/18 09:30 Dose: 25 mg Sertraline HCl (Zoloft) 25 mg PO DAILY [facility]; Protocol Stop: 03/29/18 08:59 Last Admin: 01/28/18 09:30 Dose: 25 mg Sodium Phosphate (Fleet Enema) 135 ml RC Q48H PRN PRN Reason: IF DULCOLAX INEFFECTIVE Stop: 03/28/18 20:02 Zolpidem Tartrate (Ambien) 5 mg PO HS PRN PRN Reason: Insomnia Stop: 03/28/18 18:44
--- NOTE | 2018-01-28 16:10 | History & Physical ---
ADMIT DATE: 01/28/2018 CHIEF COMPLAINT: Agitation. HISTORY OF PRESENT ILLNESS: This is a 67-year-old male, is a [facility] resident, admitted to the Geropsych Unit due to 1-day history of increasing agitation. PAST MEDICAL HISTORY: Obesity, diabetes, hypertension. PAST SURGICAL HISTORY: Right hip surgery. ALLERGIES: No drug allergies. MEDICATIONS: Tylenol, vitamin D3, Colace, Lantus, metformin, Zoloft. FAMILY HISTORY: Noncontributory. SOCIAL HISTORY: The patient is a [facility] resident, requiring 24-hour nursing care. REVIEW OF SYSTEMS: GENERAL: Denies any fever and chills. CARDIOVASCULAR: No chest pain. RESPIRATORY: No shortness of breath. GASTROINTESTINAL: Denies nausea, vomiting, abdominal pain. GENITOURINARY: Denies increased frequency or dysuria. NEUROLOGIC: No headaches, seizures or syncope. All systems reviewed are negative. PHYSICAL EXAMINATION: GENERAL: The patient is well-developed, well nourished, no apparent distress. VITAL SIGNS: Temperature 99, heart rate 66, blood pressure 134/78, respirations 20, O2 94%. HEENT: Head; normocephalic, atraumatic. NECK: Supple. No mass. LUNGS: Clear bilaterally. ABDOMEN: Soft, nontender. LABORATORY DATA: WBC 10.8, H and H 14.9 and 42.9, platelet of 354. Sodium 132, potassium 4.2, chloride 98, BUN 17, creatinine 1.4. ASSESSMENT: Agitation diabetes, obesity, hyponatremia, low albumin, hypertension, cardiomegaly, schizoaffective disorder, hypercholesterolemia. PLAN: Continue the patient on ADA diet and Accu-Chek with insulin sliding scale. Monitor the patient's blood pressure closely. Fall precautions will be initiated. We will continue to monitor this patient. JOB# [id number]
[2018-01-28] MEDS: Insulin Detemir 100 units/mL 10mL Vial SUBQ SCH (21:18)
--- NOTE | 2018-01-29 01:01 | Psychiatric Evaluation ---
DATE OF SERVICE: 01/28/2018 PSYCHIATRIC EVALUATION AND EXAMINATION IDENTIFYING DATA: The patient is a 67-year-old male, resident of the [facility]. Information was obtained by directly interviewing the patient as well as reviewing the admission papers and they are reliable. JUSTIFICATION OF HOSPITALIZATION: The patient is admitted here on a voluntary basis in view of his anger outbursts and impulsive behavior. The patient is primarily Gabonese speaking; however, he is able to understand some Thai. During the interview, the patient is stating that he came in here to get some help for his diabetes. During the evaluation, the patient is also reported to have gone to a female and pull his pants down and noted to be sexually inappropriate. The patient is getting very agitated, intrusive, and has not been making much sense at this time. The patient is reported to have been here in 06/2017 and has been presented with aggressive behavior. The patient was screaming and yelling at this time and he was here sometime in 06/2017. He has been diagnosed to have mood disorder, but at this time the patient has been presenting with more hypersexual and aggressive behavior. PAST PSYCHIATRIC HISTORY: Please refer to the above. MEDICAL HISTORY AND PHYSICAL EXAMINATION: Requested to be done by Dr. Burciaga. SUBSTANCE ABUSE HISTORY: None. PHYSICAL OR SEXUAL ABUSE HISTORY: None. LEGAL PROBLEMS: None at this time. MENTAL STATUS EXAMINATION: The patient is a 67-year-old, looking his stated age, superficially cooperative. Eye contact is poor. Mood is noted to be irritable. Affect is constricted. Insight and judgment at this time are noted to be very much impaired. Impulse control is noted to be limited. Coping skills are noted to be limited. The patient is impulsive and sexually preoccupied. The patient is not making much sense. The patient is hypersexual at this time. The patient's immediate memory is noted to be poor and short-term memory is also noted to be poor. Long-term memory seems to be fair at this time. The patient is very aggressive. DIAGNOSTIC IMPRESSION: AXIS I. Bipolar disorder, not otherwise specified. AXIS II: None. AXIS III: As per Dr. Burciaga. IMMEDIATE TREATMENT PLAN: The patient is going to be continued on the Seroquel and Zoloft is going to be discontinued. The patient is going to be placed on 125 mg twice a day of the Depakote and followed up with the supportive therapy. JOB# [id number]
[2018-01-29] MEDS: INSULIN ASPART SLIDING SCALE 100 UNITS/ML UNIT SUBQ SCH ×4 (06:40→20:26)
[2018-01-29] MEDS: Multivitamin Tab PO SCH (09:17)
--- NOTE | 2018-01-29 17:07 | Internal Medicine Prog Note ---
Internal Medicine Subjective - Subjective Service Date: 01/29/18 Patient seen and examined:: with staff Patient is:: awake, verbal, agitated Per staff patient has:: tolerating meds Internal Medicine Objective - Results Result Diagrams: 01/27/18 14:37 01/27/18 14:37 Recent Labs: Laboratory Last Values WBC 10.8 Th/cmm (4.8-10.8) 01/27/18 14:37 RBC 5.44 Mil/cmm (3.80-5.80) 01/27/18 14:37 Hgb 14.9 gm/dL (-16) 01/27/18 14:37 Hct 43.9 % (41.0-60) 01/27/18 14:37 MCV 80.6 fl (80-99) 01/27/18 14:37 MCH 27.4 pg (27.0-31.0) 01/27/18 14:37 MCHC Differential 34.0 pg (28.0-36.0) 01/27/18 14:37 RDW 12.8 % (11.5-20.0) 01/27/18 14:37 Plt Count 354 Th/cmm (150-400) 01/27/18 14:37 MPV 6.9 fl 01/27/18 14:37 Neutrophils % 77.0 % (40.0-80.0) 01/27/18 14:37 Lymphocytes % 18.7 % (20.0-50.0) L 01/27/18 14:37 Monocytes % 1.7 % (2.0-10.0) L 01/27/18 14:37 Eosinophils % 2.5 % (0.0-5.0) 01/27/18 14:37 Basophils % 0.1 % (0.0-2.0) 01/27/18 14:37 Sodium 133 mEq/L (136-145) L 01/27/18 14:37 Potassium 4.2 mEq/L (3.5-5.1) 01/27/18 14:37 Chloride 98 mEq/L (98-107) 01/27/18 14:37 Carbon Dioxide 23.0 mEq/L (21.0-31.0) 01/27/18 14:37 Anion Gap 16.2 (7.0-16.0) H 01/27/18 14:37 BUN 17 mg/dL (7-25) 01/27/18 14:37 Creatinine 1.4 mg/dL (0.7-1.3) H 01/27/18 14:37 Est GFR ( Amer) > 60.0 ml/min (>90) 01/27/18 14:37 Est GFR (Non-Af Amer) 53.7 ml/min 01/27/18 14:37 BUN/Creatinine Ratio 12.1 01/27/18 14:37 Glucose 407 mg/dL (70-105) H 01/27/18 14:37 POC Glucose 290 MG/DL (70 - 105) H 01/29/18 05:39 Calcium 9.4 mg/dL (8.6-10.3) 01/27/18 14:37 Phosphorus 3.3 mg/dL (2.5-5.0) 01/27/18 14:37 Magnesium 2.0 mg/dL (1.9-2.7) 01/27/18 14:37 Total Bilirubin 0.4 mg/dL (0.3-1.0) 01/27/18 14:37 AST 11 U/L (13-39) L 01/27/18 14:37 ALT 17 U/L (7-52) 01/27/18 14:37 Alkaline Phosphatase 89 U/L (34-104) 01/27/18 14:37 Total Protein 7.2 gm/dL (6.0-8.3) 01/27/18 14:37 Albumin 3.4 gm/dL (4.2-5.5) L 01/27/18 14:37 Globulin 3.8 gm/dL 01/27/18 14:37 Albumin/Globulin Ratio 0.9 (1.0-1.8) L 01/27/18 14:37 Triglycerides 146 mg/dL (<150) 01/27/18 14:37 Cholesterol 167 mg/dL (<200) 01/27/18 14:37 LDL Cholesterol Direct 113 mg/dL (75-193) 01/27/18 14:37 HDL Cholesterol 43 mg/dL (23-92) 01/27/18 14:37 TSH 1.11 uIU/ml (0.34-5.60) 01/27/18 14:37 Urine Source CLEAN C 01/27/18 14:30 Urine Color YELLOW 01/27/18 14:30 Urine Clarity CLEAR (CLEAR) 01/27/18 14:30 Urine pH 6.0 (4.6 - 8.0) 01/27/18 14:30 Ur Specific [place] 1.025 (1.005-1.030) 01/27/18 14:30 Urine Protein NEGATIVE mg/dL (NEGATIVE) 01/27/18 14:30 Urine Glucose (UA) >=1000 mg/dL (NEGATIVE) H 01/27/18 14:30 Urine Ketones TRACE mg/dL (NEGATIVE) 01/27/18 14:30 Urine Blood NEGATIVE (NEGATIVE) 01/27/18 14:30 Urine Nitrate NEGATIVE (NEGATIVE) 01/27/18 14:30 Urine Bilirubin NEGATIVE (NEGATIVE) 01/27/18 14:30 Urine Urobilinogen 0.2 E.U./dL (0.2 - 1.0) 01/27/18 14:30 Ur Leukocyte Esterase NEGATIVE (NEGATIVE) 01/27/18 14:30 Urine RBC 0-2 /hpf (0-5) H 01/27/18 14:30 Urine WBC 0-2 /hpf (0-5) 01/27/18 14:30 Ur Epithelial Cells FEW /lpf (FEW) 01/27/18 14:30 Urine Bacteria FEW /hpf (NONE SEEN) 01/27/18 14:30 Urine Mucus FEW /lpf (FEW) 01/27/18 14:30 Urine Opiates Screen NEGATIVE (NEGATIVE) 01/27/18 14:30 Urine Methadone Screen NEGATIVE (NEGATIVE) 01/27/18 14:30 Ur Barbiturates Screen NEGATIVE (NEGATIVE) 01/27/18 14:30 Ur Tricyclics Screen NEGATIVE (NEGATIVE) 01/27/18 14:30 Ur Phencyclidine Scrn NEGATIVE (NEGATIVE) 01/27/18 14:30 Amphetamines Screen NEGATIVE (NEGATIVE) 01/27/18 14:30 U Methamphetamines Scrn NEGATIVE (NEGATIVE) 01/27/18 14:30 U Benzodiazepines Scrn NEGATIVE (NEGATIVE) 01/27/18 14:30 U Cocaine Metab Screen NEGATIVE (NEGATIVE) 01/27/18 14:30 U Cannabinoids Screen NEGATIVE (NEGATIVE) 01/27/18 14:30 - Physical Exam Vitals and I&O: Vital Signs Temp 97.5 F 01/29/18 06:27 Pulse 58 12/18/18 06:27 Resp 18 01/29/18 06:27 BP 132/78 01/29/18 06:27 Pulse Ox 96 01/29/18 06:27 Intake & Output 01/28/18 01/29/18 01/29/18 18:59 06:59 18:59 Intake Total 900 180 Balance 900 180 Intake: Oral 900 180 Other: # Voids 3 2 # Bowel Movements 1 0 Active Medications: Current Medications Acetaminophen (Tylenol) 650 mg PO Q4HR PRN PRN Reason: Mild Pain 1-3 / Temp above 100 Stop: 03/28/18 18:44 Al Hydrox/Mg Hydrox/Simethicone (Maalox) 30 ml PO Q4HR PRN PRN Reason: GI DISTRESS Stop: 03/29/18 12:14 Bisacodyl (Dulcolax 10 Mg Supp) 10 mg RC DAILY PRN PRN Reason: IF MOM INEFFECTIVE Stop: 03/28/18 20:02 Divalproex Sodium (Depakote Dr) 125 mg PO Q12HR SURAJ; Protocol Stop: 03/29/18 20:59 Last Admin: 01/29/18 09:17 Dose: 125 mg Docusate Sodium (Colace) 100 mg PO DAILY SURAJ Stop: 03/29/18 08:59 Last Admin: 01/29/18 09:17 Dose: 100 mg Famotidine (Pepcid) 40 mg PO HS [facility] Stop: 03/28/18 20:59 Last Admin: 01/28/18 21:12 Dose: 40 mg Insulin Aspart (Novolog Insulin Sliding Scale) 0 units SUBQ ACHS [facility]; Protocol Stop: 03/28/18 20:59 Last Admin: 01/29/18 16:34 Dose: Not Given Insulin Detemir (Levemir Insulin) 20 units SUBQ HS [facility]; Protocol Stop: 03/28/18 20:59 Last Admin: 01/28/18 21:18 Dose: 20 units Lorazepam (Ativan) 0.5 mg PO Q6HR PRN; Protocol PRN Reason: Anxiety Stop: 03/29/18 12:14 Magnesium Hydroxide (Milk Of Magnesia) 30 ml PO HS PRN PRN Reason: Constipation Stop: 03/29/18 12:14 Multivitamins/Vitamin C (Theragran) 1 tab PO DAILY SURAJ Stop: 03/29/18 08:59 Last Admin: 01/29/18 09:17 Dose: 1 tab Psyllium Hydrophilic Mucilloid (Metamucil) 1 pkt PO BID SURAJ Stop: 03/29/18 08:59 Last Admin: 01/29/18 16:14 Dose: 1 pkt Quetiapine Fumarate (Seroquel) 25 mg PO BID SURAJ; Protocol Stop: 03/29/18 08:59 Last Admin: 01/29/18 16:14 Dose: 25 mg Sodium Phosphate (Fleet Enema) 135 ml RC Q48H PRN PRN Reason: IF DULCOLAX INEFFECTIVE Stop: 03/28/18 20:02 Zolpidem Tartrate (Ambien) 5 mg PO HS PRN PRN Reason: Insomnia Stop: 03/28/18 18:44 General: weak, alert HEENT: NC/AT, PERRLA Neck: Supple Lungs: CTAB Cardiovascular: RRR, Normal S1, Normal S2, without murmur Abdomen: soft, non-tender, non-distended, positive bowel sound Extremities: excoriation Neurological: alert Internal Medicine Assmt/Plan - Assessment Assessment: agitation dm obesity hyponatremia low albumin htn cardiomegaly schizoaffective hdl - Plan Plan: fall precautions monitor bp closely cpm Nutritional Asmnt/Malnutr-PDOC - Dietary Evaluation Malnutrition Findings (Please click <Entered> for more info): Nutritional Asmnt/Malnutrition Start: 01/28/18 14: 11 Text: Status: Complete Freq: Protocol: Document 01/28/18 14:11 LCHENG (Rec: 01/28/18 14:18 LCEVERARDOG [email or web address]) Nutritional Asmnt/Malnutrition Patient General Information Nutritional Screening High Risk Consult Diagnosis increased agitation, psychosis Pertinent Medical Hx/Surgical Hx DM, depression, schizophrenia, bipolar, pschosis Subjective Information Pt seen in his room talking with doctor. Glucose 407 at admission noted. Pt is [place] speaking noted. Not able to provide nutrition education d/ t language barrier at this time. Current Diet Order/ Nutrition Support CCHo 60gm Pertinent Medications colace, pepcid, novolog, levemir, theragran, seroquel Pertinent Labs 01/28 POC 191-376 01/27 Na 133, Cr 1.4, glucose 407, POC 278-361 Nutritional Hx/Data Height 5 ft 4 in Height (Calculated Centimeters) 162.6 Current Weight (lbs) 210 lb Weight (Calculated Kilograms) 95.3 Weight (Calculated Grams) 11573.4 [place] Body Weight 130 Body Mass Index (BMI) 36.0 Weight Status Obese GI Symptoms GI Symptoms None Last BM none noted Skin Integrity/Comment: intact Estimated Nutritional Goals BEE in Kcals: Adj wt of IBW Calories/Kcals/Kg 25-30 Kcals Calculated 2674-2701 Protein: Adj wt of IBW Protein g/k-1.2 Protein Calculated 68-82 Fluid: ml 1700-2040ml (1ml/kcal) Nutritional Problem 1. Problem Problem altered nutrition relatedl abs Etiology hx of DM, hyperlipidemia Signs/Symptoms: glucose 407, POC 278-367 Malnutrition Alert Is there a minimum of two criteria No selected? Query Text:Check all the applicable criteria. A minimum of two criteria are recommended for diagnosis of either severe or non-severe malnutrition. Malnutrition Related to Morbid Obesity Malnutrition related to morbid obesity No Intervention/Recommendation Comments 1. [facility] as ordered. MD to adjust insulin regimen for optimal glycemic control 2. Monitor PO intake, wt, labs and skin integrity 3. F/U as moderate risk in 3-5 days, 01/31-02/02, PO check 01/30 Expected Outcomes/Goals Expected Outcomes/Goals 1. PO intake to meet at least 75% of nutritional needs. 2. Wt stability, skin to remain intact, labs to approach WNL.
[2018-01-29] MEDS: Insulin Detemir 100 units/mL 10mL Vial SUBQ SCH (20:27)
--- NOTE | 2018-01-30 01:54 | Progress Notes ---
DATE: 01/29/2018 PSYCHIATRIC PROGRESS NOTE SUBJECTIVE: Staff was spoken to. The patient is interviewed. Mood is noted to be irritable. Affect is constricted. Insight and judgment at this time are noted to be impaired. Impulse control is noted to be limited. The patient is still sexually preoccupied. Coping skills at this time are noted to be very poor. The patient has no insight into his illness. ASSESSMENT: The patient is still impulsive and paranoid and is not ready to be discharged to a lower level of care. PLAN: To continue the patient on the current medications and followup. JOB# [id number]
[2018-01-30] MEDS: INSULIN ASPART SLIDING SCALE 100 UNITS/ML UNIT SUBQ SCH ×4 (06:48→20:42)
[2018-01-30] MEDS: Multivitamin Tab PO SCH (09:22)
--- NOTE | 2018-01-30 16:45 | Internal Medicine Prog Note ---
Internal Medicine Subjective - Subjective Service Date: 01/30/18 Patient is:: awake, verbal, agitated Per staff patient has:: tolerating meds Internal Medicine Objective - Results Result Diagrams: 01/27/18 14:37 01/27/18 14:37 Recent Labs: Laboratory Last Values WBC 10.8 Th/cmm (4.8-10.8) 01/27/18 14:37 RBC 5.44 Mil/cmm (3.80-5.80) 01/27/18 14:37 Hgb 14.9 gm/dL (-16) 01/27/18 14:37 Hct 43.9 % (41.0-60) 01/27/18 14:37 MCV 80.6 fl (80-99) 01/27/18 14:37 MCH 27.4 pg (27.0-31.0) 01/27/18 14:37 MCHC Differential 34.0 pg (28.0-36.0) 01/27/18 14:37 RDW 12.8 % (11.5-20.0) 01/27/18 14:37 Plt Count 354 Th/cmm (150-400) 01/27/18 14:37 MPV 6.9 fl 01/27/18 14:37 Neutrophils % 77.0 % (40.0-80.0) 01/27/18 14:37 Lymphocytes % 18.7 % (20.0-50.0) L 01/27/18 14:37 Monocytes % 1.7 % (2.0-10.0) L 01/27/18 14:37 Eosinophils % 2.5 % (0.0-5.0) 01/27/18 14:37 Basophils % 0.1 % (0.0-2.0) 01/27/18 14:37 Sodium 133 mEq/L (136-145) L 01/27/18 14:37 Potassium 4.2 mEq/L (3.5-5.1) 01/27/18 14:37 Chloride 98 mEq/L (98-107) 01/27/18 14:37 Carbon Dioxide 23.0 mEq/L (21.0-31.0) 01/27/18 14:37 Anion Gap 16.2 (7.0-16.0) H 01/27/18 14:37 BUN 17 mg/dL (7-25) 01/27/18 14:37 Creatinine 1.4 mg/dL (0.7-1.3) H 01/27/18 14:37 Est GFR ( Amer) > 60.0 ml/min (>90) 01/27/18 14:37 Est GFR (Non-Af Amer) 53.7 ml/min 01/27/18 14:37 BUN/Creatinine Ratio 12.1 01/27/18 14:37 Glucose 407 mg/dL (70-105) H 01/27/18 14:37 POC Glucose 247 MG/DL (70 - 105) H 01/30/18 06:04 Calcium 9.4 mg/dL (8.6-10.3) 01/27/18 14:37 Phosphorus 3.3 mg/dL (2.5-5.0) 01/27/18 14:37 Magnesium 2.0 mg/dL (1.9-2.7) 01/27/18 14:37 Total Bilirubin 0.4 mg/dL (0.3-1.0) 01/27/18 14:37 AST 11 U/L (13-39) L 01/27/18 14:37 ALT 17 U/L (7-52) 01/27/18 14:37 Alkaline Phosphatase 89 U/L (34-104) 01/27/18 14:37 Total Protein 7.2 gm/dL (6.0-8.3) 01/27/18 14:37 Albumin 3.4 gm/dL (4.2-5.5) L 01/27/18 14:37 Globulin 3.8 gm/dL 01/27/18 14:37 Albumin/Globulin Ratio 0.9 (1.0-1.8) L 01/27/18 14:37 Triglycerides 146 mg/dL (<150) 01/27/18 14:37 Cholesterol 167 mg/dL (<200) 01/27/18 14:37 LDL Cholesterol Direct 113 mg/dL (75-193) 01/27/18 14:37 HDL Cholesterol 43 mg/dL (23-92) 01/27/18 14:37 TSH 1.11 uIU/ml (0.34-5.60) 01/27/18 14:37 Urine Source CLEAN C 01/27/18 14:30 Urine Color YELLOW 01/27/18 14:30 Urine Clarity CLEAR (CLEAR) 01/27/18 14:30 Urine pH 6.0 (4.6 - 8.0) 01/27/18 14:30 Ur Specific [place] 1.025 (1.005-1.030) 01/27/18 14:30 Urine Protein NEGATIVE mg/dL (NEGATIVE) 01/27/18 14:30 Urine Glucose (UA) >=1000 mg/dL (NEGATIVE) H 01/27/18 14:30 Urine Ketones TRACE mg/dL (NEGATIVE) 01/27/18 14:30 Urine Blood NEGATIVE (NEGATIVE) 01/27/18 14:30 Urine Nitrate NEGATIVE (NEGATIVE) 01/27/18 14:30 Urine Bilirubin NEGATIVE (NEGATIVE) 01/27/18 14:30 Urine Urobilinogen 0.2 E.U./dL (0.2 - 1.0) 01/27/18 14:30 Ur Leukocyte Esterase NEGATIVE (NEGATIVE) 01/27/18 14:30 Urine RBC 0-2 /hpf (0-5) H 01/27/18 14:30 Urine WBC 0-2 /hpf (0-5) 01/27/18 14:30 Ur Epithelial Cells FEW /lpf (FEW) 01/27/18 14:30 Urine Bacteria FEW /hpf (NONE SEEN) 01/27/18 14:30 Urine Mucus FEW /lpf (FEW) 01/27/18 14:30 Urine Opiates Screen NEGATIVE (NEGATIVE) 01/27/18 14:30 Urine Methadone Screen NEGATIVE (NEGATIVE) 01/27/18 14:30 Ur Barbiturates Screen NEGATIVE (NEGATIVE) 01/27/18 14:30 Ur Tricyclics Screen NEGATIVE (NEGATIVE) 01/27/18 14:30 Ur Phencyclidine Scrn NEGATIVE (NEGATIVE) 01/27/18 14:30 Amphetamines Screen NEGATIVE (NEGATIVE) 01/27/18 14:30 U Methamphetamines Scrn NEGATIVE (NEGATIVE) 01/27/18 14:30 U Benzodiazepines Scrn NEGATIVE (NEGATIVE) 01/27/18 14:30 U Cocaine Metab Screen NEGATIVE (NEGATIVE) 01/27/18 14:30 U Cannabinoids Screen NEGATIVE (NEGATIVE) 01/27/18 14:30 - Physical Exam Vitals and I&O: Vital Signs Temp 97.6 F 01/30/18 14:00 Pulse 62 01/30/18 14:00 Resp 20 01/30/18 14:00 BP 126/73 01/30/18 14:00 Pulse Ox 97 01/30/18 14:00 Intake & Output 01/29/18 01/30/18 01/30/18 18:59 06:59 18:59 Intake Total 1400 240 Balance 1400 240 Weight (lbs) 210 lb Intake: Oral 1400 240 Other: # Voids 5 4 # Bowel Movements 1 0 Weight Source Bedscale Active Medications: Current Medications Acetaminophen (Tylenol) 650 mg PO Q4HR PRN PRN Reason: Mild Pain 1-3 / Temp above 100 Stop: 03/28/18 18:44 Al Hydrox/Mg Hydrox/Simethicone (Maalox) 30 ml PO Q4HR PRN PRN Reason: GI DISTRESS Stop: 03/29/18 12:14 Bisacodyl (Dulcolax 10 Mg Supp) 10 mg RC DAILY PRN PRN Reason: IF MOM INEFFECTIVE Stop: 03/28/18 20:02 Divalproex Sodium (Depakote Dr) 125 mg PO Q12HR SURAJ; Protocol Stop: 03/29/18 20:59 Last Admin: 01/30/18 09:21 Dose: 125 mg Docusate Sodium (Colace) 100 mg PO DAILY SURAJ Stop: 03/29/18 08:59 Last Admin: 01/30/18 09:22 Dose: 100 mg Famotidine (Pepcid) 40 mg PO HS SURAJ Stop: 03/28/18 20:59 Last Admin: 01/29/18 21:05 Dose: 40 mg Insulin Aspart (Novolog Insulin Sliding Scale) 0 units SUBQ ACHS [facility]; Protocol Stop: 03/28/18 20:59 Last Admin: 01/30/18 16:33 Dose: Not Given Insulin Detemir (Levemir Insulin) 20 units SUBQ HS [facility]; Protocol Stop: 03/28/18 20:59 Last Admin: 01/29/18 20:27 Dose: 20 units Lorazepam (Ativan) 0.5 mg PO Q6HR PRN; Protocol PRN Reason: Anxiety Stop: 03/29/18 12:14 Magnesium Hydroxide (Milk Of Magnesia) 30 ml PO HS PRN PRN Reason: Constipation Stop: 03/29/18 12:14 Multivitamins/Vitamin C (Theragran) 1 tab PO DAILY SURAJ Stop: 03/29/18 08:59 Last Admin: 01/30/18 09:22 Dose: 1 tab Psyllium Hydrophilic Mucilloid (Metamucil) 1 pkt PO BID USRAJ Stop: 03/29/18 08:59 Last Admin: 01/30/18 09:22 Dose: 1 pkt Quetiapine Fumarate (Seroquel) 25 mg PO BID [facility]; Protocol Stop: 03/29/18 08:59 Last Admin: 01/30/18 09:22 Dose: 25 mg Sodium Phosphate (Fleet Enema) 135 ml RC Q48H PRN PRN Reason: IF DULCOLAX INEFFECTIVE Stop: 03/28/18 20:02 Zolpidem Tartrate (Ambien) 5 mg PO HS PRN PRN Reason: Insomnia Stop: 03/28/18 18:44 General: weak, alert HEENT: NC/AT, PERRLA Neck: Supple Lungs: CTAB Cardiovascular: RRR, Normal S1, Normal S2, without murmur Abdomen: soft, non-tender, non-distended, positive bowel sound Extremities: excoriation Neurological: alert Internal Medicine Assmt/Plan - Assessment Assessment: agitation dm obesity hyponatremia low albumin htn cardiomegaly schizoaffective hdl - Plan Plan: fall precautions monitor bp closely cpm Nutritional Asmnt/Malnutr-PDOC - Dietary Evaluation Malnutrition Findings (Please click <Entered> for more info): Nutritional Asmnt/Malnutrition Start: 01/28/18 14: 11 Text: Status: Complete Freq: Protocol: Document 01/28/18 14:11 LCHENG (Rec: 01/28/18 14:18 LCEVERARDOG [email or web address]) Nutritional Asmnt/Malnutrition Patient General Information Nutritional Screening High Risk Consult Diagnosis increased agitation, psychosis Pertinent Medical Hx/Surgical Hx DM, depression, schizophrenia, bipolar, pschosis Subjective Information Pt seen in his room talking with doctor. Glucose 407 at admission noted. Pt is [place] speaking noted. Not able to provide nutrition education d/ t language barrier at this time. Current Diet Order/ Nutrition Support CCHo 60gm Pertinent Medications colace, pepcid, novolog, levemir, theragran, seroquel Pertinent Labs 01/28 POC 191-376 01/27 Na 133, Cr 1.4, glucose 407, POC 278-361 Nutritional Hx/Data Height 5 ft 4 in Height (Calculated Centimeters) 162.6 Current Weight (lbs) 210 lb Weight (Calculated Kilograms) 95.3 Weight (Calculated Grams) 74243.4 [place] Body Weight 130 Body Mass Index (BMI) 36.0 Weight Status Obese GI Symptoms GI Symptoms None Last BM none noted Skin Integrity/Comment: intact Estimated Nutritional Goals BEE in Kcals: Adj wt of IBW Calories/Kcals/Kg 25-30 Kcals Calculated 3194-1071 Protein: Adj wt of IBW Protein g/k-1.2 Protein Calculated 68-82 Fluid: ml 1700-2040ml (1ml/kcal) Nutritional Problem 1. Problem Problem altered nutrition relatedl abs Etiology hx of DM, hyperlipidemia Signs/Symptoms: glucose 407, POC 278-367 Malnutrition Alert Is there a minimum of two criteria No selected? Query Text:Check all the applicable criteria. A minimum of two criteria are recommended for diagnosis of either severe or non-severe malnutrition. Malnutrition Related to Morbid Obesity Malnutrition related to morbid obesity No Intervention/Recommendation Comments 1. [facility]. MD to adjust insulin regimen for optimal glycemic control 2. Monitor PO intake, wt, labs and skin integrity 3. F/U as moderate risk in 3-5 days, 01/31-02/02, PO check 01/30 Expected Outcomes/Goals Expected Outcomes/Goals 1. PO intake to meet at least 75% of nutritional needs. 2. Wt stability, skin to remain intact, labs to approach WNL.
[2018-01-30] MEDS: Insulin Detemir 100 units/mL 10mL Vial SUBQ SCH (20:50)
--- NOTE | 2018-01-31 02:38 | Progress Notes ---
DATE: 01/30/2018 SUBJECTIVE: Staff was spoken to. The patient is interviewed. Mood is noted to be irritable. Affect is constricted. Insight and judgment at this time are noted to be still impaired. Impulse control is noted to be limited. Coping skills are also elevated. The patient has been sexually preoccupied and gets easily upset when he is redirected. No side effects to the medications are noted at this time. Sleep is noted to be fair and appetite is also noted to be fair, but impulsivity is a major concern with the patient. ASSESSMENT: The patient is still impulsive. PLAN: To continue the patient with the Depakote and the Seroquel and follow the patient up. JOB# [id number]
[2018-01-31] MEDS: INSULIN ASPART SLIDING SCALE 100 UNITS/ML UNIT SUBQ SCH ×4 (06:44→21:19)
[2018-01-31] MEDS: Multivitamin Tab PO SCH (09:56)
--- NOTE | 2018-01-31 10:11 | Consultation ---
DATE OF CONSULTATION: 01/30/2018 REFERRING PHYSICIAN: Rosa White M.D. TYPE OF CONSULTATION: Psychology. HISTORY OF PRESENT ILLNESS: The patient is a 67-year-old male. The patient is a resident of [facility]. The following is by record review and by the patient's self-report. The patient is being admitted due to anger outbursts and impulsive behavior. The patient is primarily [place] speaking. Korean speaking staff is being used to assist in interpretation. 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 The patient states that he believes he is in the hospital to get treatment for his diabetes. The staff on the unit report that the patient has been sexually inappropriate by pulling his pants down in front of female staff. The patient appears to be intrusive and agitated and is not making much sense. The patient denied any suicidal ideation, plan or intention. The staff at the patient's facility report the patient has screaming and yelling episodes as well as hypersexual and aggressive behavior. PAST MEDICAL HISTORY: Please see history and physical by Dr. Burciaga. PAST PSYCHIATRIC HISTORY: Records are unavailable at the time of this clinical interview. The patient has a history of bipolar disorder and is under the care of a psychiatrist at his facility. SUBSTANCE ABUSE HISTORY: The patient denies any history. PSYCHOSOCIAL HISTORY: The patient did not answer questions about occupational or educational history or jew affiliation. The patient did not answer questions about history of physical or sexual abuse or current legal problems. The patient did not answer questions about whether there are family members involved in his care and his support system. MENTAL STATUS EXAMINATION: The patient appears to be his stated age. The patient's attitude is uncooperative. Speech is pressured. Eye contact is avoidant. Mood is irritable with anger outbursts. Affect is constricted. Thought process shows to be confused with perseveration on the patient's medical condition. The patient denied any auditory or visual hallucinations. The patient denies any suicidal ideation, plan or intention. The patient's behavior on the unit has been impulsive and sexually inappropriate. Impulse control is impaired. Concentration is poor. The patient did not participate in the memory assessment beyond the immediate memory assessment. Immediate memory is impaired. Short-term memory and long-term memory appear to be poor, but needed further evaluation. Sensorium is alert and oriented to self only. The patient did not participate in the interpretation of proverbs. Insight is impaired. Judgment is impaired. DIAGNOSTIC IMPRESSION: AXIS I: History of bipolar disorder, not otherwise specified. AXIS II: Deferred. AXIS III: Per Dr. Burciaga. TREATMENT PLAN: The patient has been seen by Dr. White for psychiatric evaluation and for the management of the patient's psychotropic medications. Please see the attending psychiatrist treatment plan with respect to medication. We will provide supportive psychotherapy to include reality orientation, differentiation and integration. We will provide limit setting and de-escalation. We will provide boundary awareness as well as boundary definitions for the patient to become aware of his inappropriate behavior and sexual remarks and gestures towards female staff. We will provide coping strategies, phase of life issues as well as for chronic severe mental illness. We will provide motivational enhancement for the patient to become compliant and stay compliant with all aspects of his care and treatment. We will provide daily opportunities for the patient to demonstrate emotional and self-regulation prior to his discharge. Thank you, Dr. White for this consult and the opportunity to participate in this patient's care. JOB# [id number] CLAUDIO
--- NOTE | 2018-01-31 12:50 | Internal Medicine Prog Note ---
Internal Medicine Subjective - Subjective Patient seen and examined:: with staff, chart reviewed Patient is:: awake, verbal, interactive, agitated Per staff patient has:: no adverse event, no episodes of fall, tolerating meds Internal Medicine Objective - Results Result Diagrams: 01/27/18 14:37 01/27/18 14:37 Recent Labs: Laboratory Last Values WBC 10.8 Th/cmm (4.8-10.8) 01/27/18 14:37 RBC 5.44 Mil/cmm (3.80-5.80) 01/27/18 14:37 Hgb 14.9 gm/dL (-16) 01/27/18 14:37 Hct 43.9 % (41.0-60) 01/27/18 14:37 MCV 80.6 fl (80-99) 01/27/18 14:37 MCH 27.4 pg (27.0-31.0) 01/27/18 14:37 MCHC Differential 34.0 pg (28.0-36.0) 01/27/18 14:37 RDW 12.8 % (11.5-20.0) 01/27/18 14:37 Plt Count 354 Th/cmm (150-400) 01/27/18 14:37 MPV 6.9 fl 01/27/18 14:37 Neutrophils % 77.0 % (40.0-80.0) 01/27/18 14:37 Lymphocytes % 18.7 % (20.0-50.0) L 01/27/18 14:37 Monocytes % 1.7 % (2.0-10.0) L 01/27/18 14:37 Eosinophils % 2.5 % (0.0-5.0) 01/27/18 14:37 Basophils % 0.1 % (0.0-2.0) 01/27/18 14:37 Sodium 133 mEq/L (136-145) L 01/27/18 14:37 Potassium 4.2 mEq/L (3.5-5.1) 01/27/18 14:37 Chloride 98 mEq/L (98-107) 01/27/18 14:37 Carbon Dioxide 23.0 mEq/L (21.0-31.0) 01/27/18 14:37 Anion Gap 16.2 (7.0-16.0) H 01/27/18 14:37 BUN 17 mg/dL (7-25) 01/27/18 14:37 Creatinine 1.4 mg/dL (0.7-1.3) H 01/27/18 14:37 Est GFR ( Amer) > 60.0 ml/min (>90) 01/27/18 14:37 Est GFR (Non-Af Amer) 53.7 ml/min 01/27/18 14:37 BUN/Creatinine Ratio 12.1 01/27/18 14:37 Glucose 407 mg/dL (70-105) H 01/27/18 14:37 POC Glucose 205 MG/DL (70 - 105) H 01/31/18 05:51 Calcium 9.4 mg/dL (8.6-10.3) 01/27/18 14:37 Phosphorus 3.3 mg/dL (2.5-5.0) 01/27/18 14:37 Magnesium 2.0 mg/dL (1.9-2.7) 01/27/18 14:37 Total Bilirubin 0.4 mg/dL (0.3-1.0) 01/27/18 14:37 AST 11 U/L (13-39) L 01/27/18 14:37 ALT 17 U/L (7-52) 01/27/18 14:37 Alkaline Phosphatase 89 U/L (34-104) 01/27/18 14:37 Total Protein 7.2 gm/dL (6.0-8.3) 01/27/18 14:37 Albumin 3.4 gm/dL (4.2-5.5) L 01/27/18 14:37 Globulin 3.8 gm/dL 01/27/18 14:37 Albumin/Globulin Ratio 0.9 (1.0-1.8) L 01/27/18 14:37 Triglycerides 146 mg/dL (<150) 01/27/18 14:37 Cholesterol 167 mg/dL (<200) 01/27/18 14:37 LDL Cholesterol Direct 113 mg/dL (75-193) 01/27/18 14:37 HDL Cholesterol 43 mg/dL (23-92) 01/27/18 14:37 TSH 1.11 uIU/ml (0.34-5.60) 01/27/18 14:37 Urine Source CLEAN C 01/27/18 14:30 Urine Color YELLOW 01/27/18 14:30 Urine Clarity CLEAR (CLEAR) 01/27/18 14:30 Urine pH 6.0 (4.6 - 8.0) 01/27/18 14:30 Ur Specific [place] 1.025 (1.005-1.030) 01/27/18 14:30 Urine Protein NEGATIVE mg/dL (NEGATIVE) 01/27/18 14:30 Urine Glucose (UA) >=1000 mg/dL (NEGATIVE) H 01/27/18 14:30 Urine Ketones TRACE mg/dL (NEGATIVE) 01/27/18 14:30 Urine Blood NEGATIVE (NEGATIVE) 01/27/18 14:30 Urine Nitrate NEGATIVE (NEGATIVE) 01/27/18 14:30 Urine Bilirubin NEGATIVE (NEGATIVE) 01/27/18 14:30 Urine Urobilinogen 0.2 E.U./dL (0.2 - 1.0) 01/27/18 14:30 Ur Leukocyte Esterase NEGATIVE (NEGATIVE) 01/27/18 14:30 Urine RBC 0-2 /hpf (0-5) H 01/27/18 14:30 Urine WBC 0-2 /hpf (0-5) 01/27/18 14:30 Ur Epithelial Cells FEW /lpf (FEW) 01/27/18 14:30 Urine Bacteria FEW /hpf (NONE SEEN) 01/27/18 14:30 Urine Mucus FEW /lpf (FEW) 01/27/18 14:30 Urine Opiates Screen NEGATIVE (NEGATIVE) 01/27/18 14:30 Urine Methadone Screen NEGATIVE (NEGATIVE) 01/27/18 14:30 Ur Barbiturates Screen NEGATIVE (NEGATIVE) 01/27/18 14:30 Ur Tricyclics Screen NEGATIVE (NEGATIVE) 01/27/18 14:30 Ur Phencyclidine Scrn NEGATIVE (NEGATIVE) 01/27/18 14:30 Amphetamines Screen NEGATIVE (NEGATIVE) 01/27/18 14:30 U Methamphetamines Scrn NEGATIVE (NEGATIVE) 01/27/18 14:30 U Benzodiazepines Scrn NEGATIVE (NEGATIVE) 01/27/18 14:30 U Cocaine Metab Screen NEGATIVE (NEGATIVE) 01/27/18 14:30 U Cannabinoids Screen NEGATIVE (NEGATIVE) 01/27/18 14:30 - Physical Exam Vitals and I&O: Vital Signs Temp 97.1 F 01/31/18 07:04 Pulse 58 01/31/18 07:04 Resp 20 01/31/18 07:04 BP 143/74 01/31/18 07:04 Pulse Ox 99 01/31/18 07:04 Intake & Output 01/30/18 01/31/18 01/31/18 18:59 06:59 18:59 Intake Total 1200 120 Balance 1200 120 Intake: Oral 1200 120 Other: # Voids 4 3 # Bowel Movements 1 Active Medications: Current Medications Acetaminophen (Tylenol) 650 mg PO Q4HR PRN PRN Reason: Mild Pain 1-3 / Temp above 100 Stop: 03/28/18 18:44 Al Hydrox/Mg Hydrox/Simethicone (Maalox) 30 ml PO Q4HR PRN PRN Reason: GI DISTRESS Stop: 03/29/18 12:14 Bisacodyl (Dulcolax 10 Mg Supp) 10 mg RC DAILY PRN PRN Reason: IF MOM INEFFECTIVE Stop: 03/28/18 20:02 Divalproex Sodium (Depakote Dr) 125 mg PO Q12HR SURAJ; Protocol Stop: 03/29/18 20:59 Last Admin: 01/31/18 09:56 Dose: 125 mg Docusate Sodium (Colace) 100 mg PO DAILY SURAJ Stop: 03/29/18 08:59 Last Admin: 01/31/18 09:56 Dose: 100 mg Famotidine (Pepcid) 40 mg PO HS SURAJ Stop: 03/28/18 20:59 Last Admin: 01/30/18 20:41 Dose: 40 mg Insulin Aspart (Novolog Insulin Sliding Scale) 0 units SUBQ ACHS SURAJ; Protocol Stop: 03/28/18 20:59 Last Admin: 01/31/18 12:28 Dose: Not Given Insulin Detemir (Levemir Insulin) 20 units SUBQ HS SURAJ; Protocol Stop: 03/28/18 20:59 Last Admin: 01/30/18 20:50 Dose: 20 units Insulin Detemir (Levemir Insulin) 6 units SUBQ DAILY [facility] [place]; Protocol Stop: 04/02/18 08:59 Lorazepam (Ativan) 0.5 mg PO Q6HR PRN; Protocol PRN Reason: Anxiety Stop: 03/29/18 12:14 Magnesium Hydroxide (Milk Of Magnesia) 30 ml PO HS PRN PRN Reason: Constipation Stop: 03/29/18 12:14 Multivitamins/Vitamin C (Theragran) 1 tab PO DAILY SURAJ Stop: 03/29/18 08:59 Last Admin: 01/31/18 09:56 Dose: 1 tab Psyllium Hydrophilic Mucilloid (Metamucil) 1 pkt PO BID SURAJ Stop: 03/29/18 08:59 Last Admin: 01/31/18 09:57 Dose: 1 pkt Quetiapine Fumarate (Seroquel) 25 mg PO BID SURAJ; Protocol Stop: 03/29/18 08:59 Last Admin: 01/31/18 09:58 Dose: 25 mg Sodium Phosphate (Fleet Enema) 135 ml RC Q48H PRN PRN Reason: IF DULCOLAX INEFFECTIVE Stop: 03/28/18 20:02 Zolpidem Tartrate (Ambien) 5 mg PO HS PRN PRN Reason: Insomnia Stop: 03/28/18 18:44 General: weak, demented HEENT: NC/AT, PERRLA Neck: Supple Lungs: CTAB Cardiovascular: RRR, Normal S1, Normal S2, without murmur Abdomen: soft, non-tender, non-distended, positive bowel sound Extremities: excoriation Neurological: no change, disorganized Internal Medicine Assmt/Plan - Assessment Assessment: - Assessment Assessment: agitation dm obesity hyponatremia low albumin htn cardiomegaly schizoaffective hdl - Plan Plan: fall precautions monitor bp closely cpm - Plan Plan: will add lantus in am Nutritional Asmnt/Malnutr-PDOC - Dietary Evaluation Malnutrition Findings (Please click <Entered> for more info): Nutritional Asmnt/Malnutrition Start: 01/28/18 14: 11 Text: Status: Complete Freq: Protocol: Document 01/28/18 14:11 LCHENG (Rec: 01/28/18 14:18 [email or web address] [email or web address]) Nutritional Asmnt/Malnutrition Patient General Information Nutritional Screening High Risk Consult Diagnosis increased agitation, psychosis Pertinent Medical Hx/Surgical Hx DM, depression, schizophrenia, bipolar, pschosis Subjective Information Pt seen in his room talking with doctor. Glucose 407 at admission noted. Pt is Nepali speaking noted. Not able to provide nutrition education d/ t language barrier at this time. Current Diet Order/ Nutrition Support CCHo 60gm Pertinent Medications colace, pepcid, novolog, levemir, theragran, seroquel Pertinent Labs 01/28 POC 191-376 01/27 Na 133, Cr 1.4, glucose 407, POC 278-361 Nutritional Hx/Data Height 1.63 m Height (Calculated Centimeters) 162.6 Current Weight (lbs) 95.254 kg Weight (Calculated Kilograms) 95.3 Weight (Calculated Grams) 77062.4 [place] Body Weight 130 Body Mass Index (BMI) 36.0 Weight Status Obese GI Symptoms GI Symptoms None Last BM none noted Skin Integrity/Comment: intact Estimated Nutritional Goals BEE in Kcals: Adj wt of IBW Calories/Kcals/Kg 25-30 Kcals Calculated 3697-8991 Protein: Adj wt of IBW Protein g/k-1.2 Protein Calculated 68-82 Fluid: ml 1700-2040ml (1ml/kcal) Nutritional Problem 1. Problem Problem altered nutrition relatedl abs Etiology hx of DM, hyperlipidemia Signs/Symptoms: glucose 407, POC 278-367 Malnutrition Alert Is there a minimum of two criteria No selected? Query Text:Check all the applicable criteria. A minimum of two criteria are recommended for diagnosis of either severe or non-severe malnutrition. Malnutrition Related to Morbid Obesity Malnutrition related to morbid obesity No Intervention/Recommendation Comments 1. Continue with CCHO-60gm diet as ordered. MD to adjust insulin regimen for optimal glycemic control 2. Monitor PO intake, wt, labs and skin integrity 3. F/U as moderate risk in 3-5 days, 01/31-02/02, PO check 01/30 Expected Outcomes/Goals Expected Outcomes/Goals 1. PO intake to meet at least 75% of nutritional needs. 2. Wt stability, skin to remain intact, labs to approach WNL.
[2018-01-31] MEDS: Insulin Detemir 100 units/mL 10mL Vial SUBQ SCH (21:20)
[2018-02-01] MEDS: INSULIN ASPART SLIDING SCALE 100 UNITS/ML UNIT SUBQ SCH ×4 (06:48→21:09)
[2018-02-01] MEDS: Multivitamin Tab PO SCH (08:37)
[2018-02-01] MEDS ORDERED: Insulin Detemir 100 units/mL 10mL Vial SUBQ SCH (09:00)
--- NOTE | 2018-02-01 10:03 | Progress Notes ---
DATE: 01/31/2018 SUBJECTIVE: Staff was spoken to. The patient is interviewed. Mood is noted to be irritable. Affect is constricted. Insight and judgment are noted to be still impaired. Impulse control is noted to be limited. The patient is pacing most of the time on the unit. No side effects to the medications are noted. The patient's coping skills at this time are noted to be very poor. ASSESSMENT: The patient is still impulsive and psychotic. PLAN: To continue the patient with the supportive therapy, encouraged the patient to verbalize the concerns. The patient is currently on a valproic acid, which is being given at 125 mg twice a day and the patient is advised to verbalize the concerns rather than to act out. The patient is also on Seroquel 25 mg twice a day. The patient is able to tolerate the medications. The patient's glucose is being closely monitored and it has gone up to 546 and the patient is referred to the primary care physician for close monitoring of the blood sugar. [facility]# [id number]
--- NOTE | 2018-02-01 12:58 | Internal Medicine Prog Note ---
Internal Medicine Subjective - Subjective Patient seen and examined:: with staff, chart reviewed Patient is:: awake, verbal, interactive, agitated Per staff patient has:: no adverse event, no episodes of fall, tolerating meds Internal Medicine Objective - Results Result Diagrams: 01/27/18 14:37 01/27/18 14:37 Recent Labs: Laboratory Last Values WBC 10.8 Th/cmm (4.8-10.8) 01/27/18 14:37 RBC 5.44 Mil/cmm (3.80-5.80) 01/27/18 14:37 Hgb 14.9 gm/dL (-16) 01/27/18 14:37 Hct 43.9 % (41.0-60) 01/27/18 14:37 MCV 80.6 fl (80-99) 01/27/18 14:37 MCH 27.4 pg (27.0-31.0) 01/27/18 14:37 MCHC Differential 34.0 pg (28.0-36.0) 01/27/18 14:37 RDW 12.8 % (11.5-20.0) 01/27/18 14:37 Plt Count 354 Th/cmm (150-400) 01/27/18 14:37 MPV 6.9 fl 01/27/18 14:37 Neutrophils % 77.0 % (40.0-80.0) 01/27/18 14:37 Lymphocytes % 18.7 % (20.0-50.0) L 01/27/18 14:37 Monocytes % 1.7 % (2.0-10.0) L 01/27/18 14:37 Eosinophils % 2.5 % (0.0-5.0) 01/27/18 14:37 Basophils % 0.1 % (0.0-2.0) 01/27/18 14:37 Sodium 133 mEq/L (136-145) L 01/27/18 14:37 Potassium 4.2 mEq/L (3.5-5.1) 01/27/18 14:37 Chloride 98 mEq/L (98-107) 01/27/18 14:37 Carbon Dioxide 23.0 mEq/L (21.0-31.0) 01/27/18 14:37 Anion Gap 16.2 (7.0-16.0) H 01/27/18 14:37 BUN 17 mg/dL (7-25) 01/27/18 14:37 Creatinine 1.4 mg/dL (0.7-1.3) H 01/27/18 14:37 Est GFR ( Amer) > 60.0 ml/min (>90) 01/27/18 14:37 Est GFR (Non-Af Amer) 53.7 ml/min 01/27/18 14:37 BUN/Creatinine Ratio 12.1 01/27/18 14:37 Glucose 404 mg/dL (70-105) H 01/31/18 16:50 POC Glucose 328 MG/DL (70 - 105) H 02/01/18 11:31 Calcium 9.4 mg/dL (8.6-10.3) 01/27/18 14:37 Phosphorus 3.3 mg/dL (2.5-5.0) 01/27/18 14:37 Magnesium 2.0 mg/dL (1.9-2.7) 01/27/18 14:37 Total Bilirubin 0.4 mg/dL (0.3-1.0) 01/27/18 14:37 AST 11 U/L (13-39) L 01/27/18 14:37 ALT 17 U/L (7-52) 01/27/18 14:37 Alkaline Phosphatase 89 U/L (34-104) 01/27/18 14:37 Total Protein 7.2 gm/dL (6.0-8.3) 01/27/18 14:37 Albumin 3.4 gm/dL (4.2-5.5) L 01/27/18 14:37 Globulin 3.8 gm/dL 01/27/18 14:37 Albumin/Globulin Ratio 0.9 (1.0-1.8) L 01/27/18 14:37 Triglycerides 146 mg/dL (<150) 01/27/18 14:37 Cholesterol 167 mg/dL (<200) 01/27/18 14:37 LDL Cholesterol Direct 113 mg/dL (75-193) 01/27/18 14:37 HDL Cholesterol 43 mg/dL (23-92) 01/27/18 14:37 TSH 1.11 uIU/ml (0.34-5.60) 01/27/18 14:37 Urine Source CLEAN C 01/27/18 14:30 Urine Color YELLOW 01/27/18 14:30 Urine Clarity CLEAR (CLEAR) 01/27/18 14:30 Urine pH 6.0 (4.6 - 8.0) 01/27/18 14:30 Ur Specific [place] 1.025 (1.005-1.030) 01/27/18 14:30 Urine Protein NEGATIVE mg/dL (NEGATIVE) 01/27/18 14:30 Urine Glucose (UA) >=1000 mg/dL (NEGATIVE) H 01/27/18 14:30 Urine Ketones TRACE mg/dL (NEGATIVE) 01/27/18 14:30 Urine Blood NEGATIVE (NEGATIVE) 01/27/18 14:30 Urine Nitrate NEGATIVE (NEGATIVE) 01/27/18 14:30 Urine Bilirubin NEGATIVE (NEGATIVE) 01/27/18 14:30 Urine Urobilinogen 0.2 E.U./dL (0.2 - 1.0) 01/27/18 14:30 Ur Leukocyte Esterase NEGATIVE (NEGATIVE) 01/27/18 14:30 Urine RBC 0-2 /hpf (0-5) H 01/27/18 14:30 Urine WBC 0-2 /hpf (0-5) 01/27/18 14:30 Ur Epithelial Cells FEW /lpf (FEW) 01/27/18 14:30 Urine Bacteria FEW /hpf (NONE SEEN) 01/27/18 14:30 Urine Mucus FEW /lpf (FEW) 01/27/18 14:30 Urine Opiates Screen NEGATIVE (NEGATIVE) 01/27/18 14:30 Urine Methadone Screen NEGATIVE (NEGATIVE) 01/27/18 14:30 Ur Barbiturates Screen NEGATIVE (NEGATIVE) 01/27/18 14:30 Ur Tricyclics Screen NEGATIVE (NEGATIVE) 01/27/18 14:30 Ur Phencyclidine Scrn NEGATIVE (NEGATIVE) 01/27/18 14:30 Amphetamines Screen NEGATIVE (NEGATIVE) 01/27/18 14:30 U Methamphetamines Scrn NEGATIVE (NEGATIVE) 01/27/18 14:30 U Benzodiazepines Scrn NEGATIVE (NEGATIVE) 01/27/18 14:30 U Cocaine Metab Screen NEGATIVE (NEGATIVE) 01/27/18 14:30 U Cannabinoids Screen NEGATIVE (NEGATIVE) 01/27/18 14:30 - Physical Exam Vitals and I&O: Vital Signs Temp 97.1 F 02/01/18 06:33 Pulse 62 02/01/18 06:33 Resp 20 02/01/18 06:33 BP 138/82 02/01/18 06:33 Pulse Ox 98 02/01/18 06:33 Intake & Output 01/31/18 02/01/18 02/01/18 18:59 06:59 18:59 Intake Total 1020 120 Balance 1020 120 Intake: Oral 1020 120 Other: # Voids 4 3 # Bowel Movements 1 Active Medications: Current Medications Acetaminophen (Tylenol) 650 mg PO Q4HR PRN PRN Reason: Mild Pain 1-3 / Temp above 100 Stop: 03/28/18 18:44 Al Hydrox/Mg Hydrox/Simethicone (Maalox) 30 ml PO Q4HR PRN PRN Reason: GI DISTRESS Stop: 03/29/18 12:14 Bisacodyl (Dulcolax 10 Mg Supp) 10 mg RC DAILY PRN PRN Reason: IF MOM INEFFECTIVE Stop: 03/28/18 20:02 Divalproex Sodium (Depakote Dr) 125 mg PO Q12HR SURAJ; Protocol Stop: 03/29/18 20:59 Last Admin: 02/01/18 08:28 Dose: 125 mg Docusate Sodium (Colace) 100 mg PO DAILY SURAJ Stop: 03/29/18 08:59 Last Admin: 02/01/18 08:29 Dose: 100 mg Famotidine (Pepcid) 40 mg PO HS SURAJ Stop: 03/28/18 20:59 Last Admin: 01/31/18 21:19 Dose: 40 mg Insulin Aspart (Novolog Insulin Sliding Scale) 0 units SUBQ ACHS SURAJ; Protocol Stop: 03/28/18 20:59 Last Admin: 02/01/18 11:58 Dose: 8 units Insulin Detemir (Levemir Insulin) 20 units SUBQ HS SURAJ; Protocol Stop: 03/28/18 20:59 Last Admin: 01/31/18 21:20 Dose: 20 units Lorazepam (Ativan) 0.5 mg PO Q6HR PRN; Protocol PRN Reason: Anxiety Stop: 03/29/18 12:14 Magnesium Hydroxide (Milk Of Magnesia) 30 ml PO HS PRN PRN Reason: Constipation Stop: 03/29/18 12:14 Multivitamins/Vitamin C (Theragran) 1 tab PO DAILY SURAJ Stop: 03/29/18 08:59 Last Admin: 02/01/18 08:37 Dose: 1 tab Psyllium Hydrophilic Mucilloid (Metamucil) 1 pkt PO BID SURAJ Stop: 03/29/18 08:59 Last Admin: 02/01/18 08:37 Dose: 1 pkt Quetiapine Fumarate (Seroquel) 25 mg PO BID [facility]; Protocol Stop: 03/29/18 08:59 Last Admin: 02/01/18 08:37 Dose: 25 mg Sodium Phosphate (Fleet Enema) 135 ml RC Q48H PRN PRN Reason: IF DULCOLAX INEFFECTIVE Stop: 03/28/18 20:02 Zolpidem Tartrate (Ambien) 5 mg PO HS PRN PRN Reason: Insomnia Stop: 03/28/18 18:44 General: weak, demented HEENT: NC/AT, PERRLA Neck: Supple Lungs: CTAB Cardiovascular: RRR, Normal S1, Normal S2, without murmur Abdomen: soft, non-tender, non-distended, positive bowel sound Extremities: excoriation Neurological: no change, disorganized Internal Medicine Assmt/Plan - Assessment Assessment: - Assessment Assessment: agitation dm obesity hyponatremia low albumin htn cardiomegaly schizoaffective hdl - Plan Plan: fall precautions monitor bp closely cpm - Plan Plan: will add lantus in am Nutritional Asmnt/Malnutr-PDOC - Dietary Evaluation Malnutrition Findings (Please click <Entered> for more info): Nutritional Asmnt/Malnutrition Start: 01/28/18 14: 11 Text: Status: Complete Freq: Protocol: Document 01/28/18 14:11 LCHENG (Rec: 01/28/18 14:18 LCEVERARDOG [email or web address]) Nutritional Asmnt/Malnutrition Patient General Information Nutritional Screening High Risk Consult Diagnosis increased agitation, psychosis Pertinent Medical Hx/Surgical Hx DM, depression, schizophrenia, bipolar, pschosis Subjective Information Pt seen in his room talking with doctor. Glucose 407 at admission noted. Pt is Welsh speaking noted. Not able to provide nutrition education d/ t language barrier at this time. Current Diet Order/ Nutrition Support CCHo 60gm Pertinent Medications colace, pepcid, novolog, levemir, theragran, seroquel Pertinent Labs 01/28 POC 191-376 01/27 Na 133, Cr 1.4, glucose 407, POC 278-361 Nutritional Hx/Data Height 1.63 m Height (Calculated Centimeters) 162.6 Current Weight (lbs) 95.254 kg Weight (Calculated Kilograms) 95.3 Weight (Calculated Grams) 51546.4 [place] Body Weight 130 Body Mass Index (BMI) 36.0 Weight Status Obese GI Symptoms GI Symptoms None Last BM none noted Skin Integrity/Comment: intact Estimated Nutritional Goals BEE in Kcals: Adj wt of IBW Calories/Kcals/Kg 25-30 Kcals Calculated 2099-4043 Protein: Adj wt of IBW Protein g/k-1.2 Protein Calculated 68-82 Fluid: ml 1700-2040ml (1ml/kcal) Nutritional Problem 1. Problem Problem altered nutrition relatedl abs Etiology hx of DM, hyperlipidemia Signs/Symptoms: glucose 407, POC 278-367 Malnutrition Alert Is there a minimum of two criteria No selected? Query Text:Check all the applicable criteria. A minimum of two criteria are recommended for diagnosis of either severe or non-severe malnutrition. Malnutrition Related to Morbid Obesity Malnutrition related to morbid obesity No Intervention/Recommendation Comments 1. [facility] as ordered. MD to adjust insulin regimen for optimal glycemic control 2. Monitor PO intake, wt, labs and skin integrity 3. F/U as moderate risk in 3-5 days, 01/31-02/02, PO check 01/30 Expected Outcomes/Goals Expected Outcomes/Goals 1. PO intake to meet at least 75% of nutritional needs. 2. Wt stability, skin to remain intact, labs to approach WNL.
[2018-02-01] MEDS: Insulin Detemir 100 units/mL 10mL Vial SUBQ SCH (21:07)
--- NOTE | 2018-02-02 00:16 | Progress Notes ---
DATE: 02/01/2018 SUBJECTIVE: Staff was spoken to. The patient is interviewed. Mood is noted to be irritable. Affect is constricted. Insight and judgment at this time are noted to be still impaired. Impulse control is noted to be limited. The patient is still sexually preoccupied. The patient gets easily annoyed when redirected. The patient is currently on the Seroquel 25 mg twice a day and the patient is also getting the valproic acid 125 mg twice a day. The patient has been able to tolerate the medication. ASSESSMENT: The patient is still impulsive. PLAN: To continue the patient with the supportive therapy and followup. JOB# [id number]
[2018-02-02] MEDS: INSULIN ASPART SLIDING SCALE 100 UNITS/ML UNIT SUBQ SCH ×4 (06:30→20:43)
[2018-02-02] MEDS: Multivitamin Tab PO SCH (08:10)
[2018-02-02] MEDS ORDERED: Insulin Detemir 100 units/mL 10mL Vial SUBQ SCH (09:00)
--- NOTE | 2018-02-02 09:50 | Internal Medicine Prog Note ---
Internal Medicine Subjective - Subjective Patient seen and examined:: with staff, chart reviewed Patient is:: awake, verbal, interactive, agitated Per staff patient has:: no adverse event, no episodes of fall, tolerating meds Internal Medicine Objective - Results Result Diagrams: 01/27/18 14:37 01/27/18 14:37 Recent Labs: Laboratory Last Values WBC 10.8 Th/cmm (4.8-10.8) 01/27/18 14:37 RBC 5.44 Mil/cmm (3.80-5.80) 01/27/18 14:37 Hgb 14.9 gm/dL (-16) 01/27/18 14:37 Hct 43.9 % (41.0-60) 01/27/18 14:37 MCV 80.6 fl (80-99) 01/27/18 14:37 MCH 27.4 pg (27.0-31.0) 01/27/18 14:37 MCHC Differential 34.0 pg (28.0-36.0) 01/27/18 14:37 RDW 12.8 % (11.5-20.0) 01/27/18 14:37 Plt Count 354 Th/cmm (150-400) 01/27/18 14:37 MPV 6.9 fl 01/27/18 14:37 Neutrophils % 77.0 % (40.0-80.0) 01/27/18 14:37 Lymphocytes % 18.7 % (20.0-50.0) L 01/27/18 14:37 Monocytes % 1.7 % (2.0-10.0) L 01/27/18 14:37 Eosinophils % 2.5 % (0.0-5.0) 01/27/18 14:37 Basophils % 0.1 % (0.0-2.0) 01/27/18 14:37 Sodium 133 mEq/L (136-145) L 01/27/18 14:37 Potassium 4.2 mEq/L (3.5-5.1) 01/27/18 14:37 Chloride 98 mEq/L (98-107) 01/27/18 14:37 Carbon Dioxide 23.0 mEq/L (21.0-31.0) 01/27/18 14:37 Anion Gap 16.2 (7.0-16.0) H 01/27/18 14:37 BUN 17 mg/dL (7-25) 01/27/18 14:37 Creatinine 1.4 mg/dL (0.7-1.3) H 01/27/18 14:37 Est GFR ( Amer) > 60.0 ml/min (>90) 01/27/18 14:37 Est GFR (Non-Af Amer) 53.7 ml/min 01/27/18 14:37 BUN/Creatinine Ratio 12.1 01/27/18 14:37 Glucose 404 mg/dL (70-105) H 01/31/18 16:50 POC Glucose 396 MG/DL (70 - 105) H 02/01/18 17:04 Calcium 9.4 mg/dL (8.6-10.3) 01/27/18 14:37 Phosphorus 3.3 mg/dL (2.5-5.0) 01/27/18 14:37 Magnesium 2.0 mg/dL (1.9-2.7) 01/27/18 14:37 Total Bilirubin 0.4 mg/dL (0.3-1.0) 01/27/18 14:37 AST 11 U/L (13-39) L 01/27/18 14:37 ALT 17 U/L (7-52) 01/27/18 14:37 Alkaline Phosphatase 89 U/L (34-104) 01/27/18 14:37 Total Protein 7.2 gm/dL (6.0-8.3) 01/27/18 14:37 Albumin 3.4 gm/dL (4.2-5.5) L 01/27/18 14:37 Globulin 3.8 gm/dL 01/27/18 14:37 Albumin/Globulin Ratio 0.9 (1.0-1.8) L 01/27/18 14:37 Triglycerides 146 mg/dL (<150) 01/27/18 14:37 Cholesterol 167 mg/dL (<200) 01/27/18 14:37 LDL Cholesterol Direct 113 mg/dL (75-193) 01/27/18 14:37 HDL Cholesterol 43 mg/dL (23-92) 01/27/18 14:37 TSH 1.11 uIU/ml (0.34-5.60) 01/27/18 14:37 Urine Source CLEAN C 01/27/18 14:30 Urine Color YELLOW 01/27/18 14:30 Urine Clarity CLEAR (CLEAR) 01/27/18 14:30 Urine pH 6.0 (4.6 - 8.0) 01/27/18 14:30 Ur Specific [place] 1.025 (1.005-1.030) 01/27/18 14:30 Urine Protein NEGATIVE mg/dL (NEGATIVE) 01/27/18 14:30 Urine Glucose (UA) >=1000 mg/dL (NEGATIVE) H 01/27/18 14:30 Urine Ketones TRACE mg/dL (NEGATIVE) 01/27/18 14:30 Urine Blood NEGATIVE (NEGATIVE) 01/27/18 14:30 Urine Nitrate NEGATIVE (NEGATIVE) 01/27/18 14:30 Urine Bilirubin NEGATIVE (NEGATIVE) 01/27/18 14:30 Urine Urobilinogen 0.2 E.U./dL (0.2 - 1.0) 01/27/18 14:30 Ur Leukocyte Esterase NEGATIVE (NEGATIVE) 01/27/18 14:30 Urine RBC 0-2 /hpf (0-5) H 01/27/18 14:30 Urine WBC 0-2 /hpf (0-5) 01/27/18 14:30 Ur Epithelial Cells FEW /lpf (FEW) 01/27/18 14:30 Urine Bacteria FEW /hpf (NONE SEEN) 01/27/18 14:30 Urine Mucus FEW /lpf (FEW) 01/27/18 14:30 Urine Opiates Screen NEGATIVE (NEGATIVE) 01/27/18 14:30 Urine Methadone Screen NEGATIVE (NEGATIVE) 01/27/18 14:30 Ur Barbiturates Screen NEGATIVE (NEGATIVE) 01/27/18 14:30 Ur Tricyclics Screen NEGATIVE (NEGATIVE) 01/27/18 14:30 Ur Phencyclidine Scrn NEGATIVE (NEGATIVE) 01/27/18 14:30 Amphetamines Screen NEGATIVE (NEGATIVE) 01/27/18 14:30 U Methamphetamines Scrn NEGATIVE (NEGATIVE) 01/27/18 14:30 U Benzodiazepines Scrn NEGATIVE (NEGATIVE) 01/27/18 14:30 U Cocaine Metab Screen NEGATIVE (NEGATIVE) 01/27/18 14:30 U Cannabinoids Screen NEGATIVE (NEGATIVE) 01/27/18 14:30 - Physical Exam Vitals and I&O: Vital Signs Temp 97.7 F 02/02/18 06:32 Pulse 86 02/02/18 06:32 Resp 19 02/02/18 06:32 BP 148/70 02/02/18 06:32 Pulse Ox 100 02/02/18 06:32 Intake & Output 02/01/18 02/02/18 02/02/18 18:59 06:59 18:59 Intake Total 1000 840 Balance 1000 840 Intake: Oral 1000 840 Other: # Voids 4 2 # Bowel Movements 0 Active Medications: Current Medications Acetaminophen (Tylenol) 650 mg PO Q4HR PRN PRN Reason: Mild Pain 1-3 / Temp above 100 Stop: 03/28/18 18:44 Al Hydrox/Mg Hydrox/Simethicone (Maalox) 30 ml PO Q4HR PRN PRN Reason: GI DISTRESS Stop: 03/29/18 12:14 Bisacodyl (Dulcolax 10 Mg Supp) 10 mg RC DAILY PRN PRN Reason: IF MOM INEFFECTIVE Stop: 03/28/18 20:02 Divalproex Sodium (Depakote Dr) 125 mg PO Q12HR SURAJ; Protocol Stop: 03/29/18 20:59 Last Admin: 02/02/18 08:10 Dose: 125 mg Docusate Sodium (Colace) 100 mg PO DAILY SURAJ Stop: 03/29/18 08:59 Last Admin: 02/02/18 08:10 Dose: 100 mg Famotidine (Pepcid) 40 mg PO HS SURAJ Stop: 03/28/18 20:59 Last Admin: 02/01/18 21:06 Dose: 40 mg Insulin Aspart (Novolog Insulin Sliding Scale) 0 units SUBQ ACHS SURAJ; Protocol Stop: 03/28/18 20:59 Last Admin: 02/02/18 06:30 Dose: 4 units Insulin Detemir (Levemir Insulin) 20 units SUBQ HS SURAJ; Protocol Stop: 03/28/18 20:59 Last Admin: 02/01/18 21:07 Dose: 20 units Insulin Detemir (Levemir Insulin) 14 units SUBQ DAILY SURAJ; Protocol Stop: 04/04/18 08:59 Lorazepam (Ativan) 0.5 mg PO Q6HR PRN; Protocol PRN Reason: Anxiety Stop: 03/29/18 12:14 Magnesium Hydroxide (Milk Of Magnesia) 30 ml PO HS PRN PRN Reason: Constipation Stop: 03/29/18 12:14 Multivitamins/Vitamin C (Theragran) 1 tab PO DAILY SURAJ Stop: 03/29/18 08:59 Last Admin: 02/02/18 08:10 Dose: 1 tab Psyllium Hydrophilic Mucilloid (Metamucil) 1 pkt PO BID SURAJ Stop: 03/29/18 08:59 Last Admin: 02/02/18 08:09 Dose: 1 pkt Quetiapine Fumarate (Seroquel) 25 mg PO BID SURAJ; Protocol Stop: 03/29/18 08:59 Last Admin: 02/02/18 08:10 Dose: 25 mg Sodium Phosphate (Fleet Enema) 135 ml RC Q48H PRN PRN Reason: IF DULCOLAX INEFFECTIVE Stop: 03/28/18 20:02 Zolpidem Tartrate (Ambien) 5 mg PO HS PRN PRN Reason: Insomnia Stop: 03/28/18 18:44 General: weak, demented HEENT: NC/AT, PERRLA Neck: Supple Lungs: CTAB Cardiovascular: RRR, Normal S1, Normal S2, without murmur Abdomen: soft, non-tender, non-distended, positive bowel sound Extremities: excoriation Neurological: no change, disorganized Internal Medicine Assmt/Plan - Assessment Assessment: - Assessment Assessment: agitation dm obesity hyponatremia low albumin htn cardiomegaly schizoaffective hdl - Plan Plan: fall precautions monitor bp closely cpm - Plan Plan: will add lantus in am incease to 14 Nutritional Asmnt/Malnutr-PDOC - Dietary Evaluation Malnutrition Findings (Please click <Entered> for more info): Nutritional Asmnt/Malnutrition Start: 01/28/18 14: 11 Text: Status: Complete Freq: Protocol: Document 01/28/18 14:11 LCHENG (Rec: 01/28/18 14:18 LCHENG [email or web address]) Nutritional Asmnt/Malnutrition Patient General Information Nutritional Screening High Risk Consult Diagnosis increased agitation, psychosis Pertinent Medical Hx/Surgical Hx DM, depression, schizophrenia, bipolar, pschosis Subjective Information Pt seen in his room talking with doctor. Glucose 407 at admission noted. Pt is Irish speaking noted. Not able to provide nutrition education d/ t language barrier at this time. Current Diet Order/ Nutrition Support [facility] 60gm Pertinent Medications colace, pepcid, novolog, levemir, theragran, seroquel Pertinent Labs 01/28 POC 191-376 01/27 Na 133, Cr 1.4, glucose 407, POC 278-361 Nutritional Hx/Data Height 1.63 m Height (Calculated Centimeters) 162.6 Current Weight (lbs) 95.254 kg Weight (Calculated Kilograms) 95.3 Weight (Calculated Grams) 20489.4 [place] Body Weight 130 Body Mass Index (BMI) 36.0 Weight Status Obese GI Symptoms GI Symptoms None Last BM none noted Skin Integrity/Comment: intact Estimated Nutritional Goals BEE in Kcals: Adj wt of IBW Calories/Kcals/Kg 25-30 Kcals Calculated 4730-0182 Protein: Adj wt of IBW Protein g/k-1.2 Protein Calculated 68-82 Fluid: ml 1700-2040ml (1ml/kcal) Nutritional Problem 1. Problem Problem altered nutrition relatedl abs Etiology hx of DM, hyperlipidemia Signs/Symptoms: glucose 407, POC 278-367 Malnutrition Alert Is there a minimum of two criteria No selected? Query Text:Check all the applicable criteria. A minimum of two criteria are recommended for diagnosis of either severe or non-severe malnutrition. Malnutrition Related to Morbid Obesity Malnutrition related to morbid obesity No Intervention/Recommendation Comments 1. Continue with [facility]-60gm diet as ordered. MD to adjust insulin regimen for optimal glycemic control 2. Monitor PO intake, wt, labs and skin integrity 3. F/U as moderate risk in 3-5 days, 01/31-02/02, PO check 01/30 Expected Outcomes/Goals Expected Outcomes/Goals 1. PO intake to meet at least 75% of nutritional needs. 2. Wt stability, skin to remain intact, labs to approach WNL.
[2018-02-02] MEDS: Insulin Detemir 100 units/mL 10mL Vial SUBQ SCH (20:44)
--- NOTE | 2018-02-02 23:01 | Progress Notes ---
DATE: 02/02/2018 PSYCHIATRIC PROGRESS NOTE SUBJECTIVE: Staff was spoken to. The patient is interviewed. Mood is noted to be irritable. Affect is constricted. The patient is noted to be still sexually preoccupied and has been pulling his pants down. The patient needs to be redirected. Insight and judgment at this time are noted to be still impaired. Impulse control is noted to be poor. Coping skills are also noted to be very poor. The patient has no insight into his illness. ASSESSMENT: The patient is still grossly psychotic and impulsive. PLAN: To continue the patient with the supportive therapy. I encouraged the patient to verbalize the concerns rather than to act out. JOB# [id number]
[2018-02-03] MEDS: INSULIN ASPART SLIDING SCALE 100 UNITS/ML UNIT SUBQ SCH ×4 (06:31→21:00)
[2018-02-03] MEDS: Insulin Detemir 100 units/mL 10mL Vial SUBQ SCH ×2 (09:20→21:06)
[2018-02-03] MEDS: Multivitamin Tab PO SCH (09:53)
--- NOTE | 2018-02-03 14:21 | Internal Medicine Prog Note ---
Internal Medicine Subjective - Subjective Patient seen and examined:: with staff, chart reviewed Patient is:: awake, verbal, interactive, agitated Per staff patient has:: no adverse event, no episodes of fall, tolerating meds Internal Medicine Objective - Results Result Diagrams: 01/27/18 14:37 01/27/18 14:37 Recent Labs: Laboratory Last Values WBC 10.8 Th/cmm (4.8-10.8) 01/27/18 14:37 RBC 5.44 Mil/cmm (3.80-5.80) 01/27/18 14:37 Hgb 14.9 gm/dL (-16) 01/27/18 14:37 Hct 43.9 % (41.0-60) 01/27/18 14:37 MCV 80.6 fl (80-99) 01/27/18 14:37 MCH 27.4 pg (27.0-31.0) 01/27/18 14:37 MCHC Differential 34.0 pg (28.0-36.0) 01/27/18 14:37 RDW 12.8 % (11.5-20.0) 01/27/18 14:37 Plt Count 354 Th/cmm (150-400) 01/27/18 14:37 MPV 6.9 fl 01/27/18 14:37 Neutrophils % 77.0 % (40.0-80.0) 01/27/18 14:37 Lymphocytes % 18.7 % (20.0-50.0) L 01/27/18 14:37 Monocytes % 1.7 % (2.0-10.0) L 01/27/18 14:37 Eosinophils % 2.5 % (0.0-5.0) 01/27/18 14:37 Basophils % 0.1 % (0.0-2.0) 01/27/18 14:37 Sodium 133 mEq/L (136-145) L 01/27/18 14:37 Potassium 4.2 mEq/L (3.5-5.1) 01/27/18 14:37 Chloride 98 mEq/L (98-107) 01/27/18 14:37 Carbon Dioxide 23.0 mEq/L (21.0-31.0) 01/27/18 14:37 Anion Gap 16.2 (7.0-16.0) H 01/27/18 14:37 BUN 17 mg/dL (7-25) 01/27/18 14:37 Creatinine 1.4 mg/dL (0.7-1.3) H 01/27/18 14:37 Est GFR ( Amer) > 60.0 ml/min (>90) 01/27/18 14:37 Est GFR (Non-Af Amer) 53.7 ml/min 01/27/18 14:37 BUN/Creatinine Ratio 12.1 01/27/18 14:37 Glucose 404 mg/dL (70-105) H 01/31/18 16:50 POC Glucose 328 MG/DL (70 - 105) H 02/02/18 11:17 Calcium 9.4 mg/dL (8.6-10.3) 01/27/18 14:37 Phosphorus 3.3 mg/dL (2.5-5.0) 01/27/18 14:37 Magnesium 2.0 mg/dL (1.9-2.7) 01/27/18 14:37 Total Bilirubin 0.4 mg/dL (0.3-1.0) 01/27/18 14:37 AST 11 U/L (13-39) L 01/27/18 14:37 ALT 17 U/L (7-52) 01/27/18 14:37 Alkaline Phosphatase 89 U/L (34-104) 01/27/18 14:37 Total Protein 7.2 gm/dL (6.0-8.3) 01/27/18 14:37 Albumin 3.4 gm/dL (4.2-5.5) L 01/27/18 14:37 Globulin 3.8 gm/dL 01/27/18 14:37 Albumin/Globulin Ratio 0.9 (1.0-1.8) L 01/27/18 14:37 Triglycerides 146 mg/dL (<150) 01/27/18 14:37 Cholesterol 167 mg/dL (<200) 01/27/18 14:37 LDL Cholesterol Direct 113 mg/dL (75-193) 01/27/18 14:37 HDL Cholesterol 43 mg/dL (23-92) 01/27/18 14:37 TSH 1.11 uIU/ml (0.34-5.60) 01/27/18 14:37 Urine Source CLEAN C 01/27/18 14:30 Urine Color YELLOW 01/27/18 14:30 Urine Clarity CLEAR (CLEAR) 01/27/18 14:30 Urine pH 6.0 (4.6 - 8.0) 01/27/18 14:30 Ur Specific [place] 1.025 (1.005-1.030) 01/27/18 14:30 Urine Protein NEGATIVE mg/dL (NEGATIVE) 01/27/18 14:30 Urine Glucose (UA) >=1000 mg/dL (NEGATIVE) H 01/27/18 14:30 Urine Ketones TRACE mg/dL (NEGATIVE) 01/27/18 14:30 Urine Blood NEGATIVE (NEGATIVE) 01/27/18 14:30 Urine Nitrate NEGATIVE (NEGATIVE) 01/27/18 14:30 Urine Bilirubin NEGATIVE (NEGATIVE) 01/27/18 14:30 Urine Urobilinogen 0.2 E.U./dL (0.2 - 1.0) 01/27/18 14:30 Ur Leukocyte Esterase NEGATIVE (NEGATIVE) 01/27/18 14:30 Urine RBC 0-2 /hpf (0-5) H 01/27/18 14:30 Urine WBC 0-2 /hpf (0-5) 01/27/18 14:30 Ur Epithelial Cells FEW /lpf (FEW) 01/27/18 14:30 Urine Bacteria FEW /hpf (NONE SEEN) 01/27/18 14:30 Urine Mucus FEW /lpf (FEW) 01/27/18 14:30 Urine Opiates Screen NEGATIVE (NEGATIVE) 01/27/18 14:30 Urine Methadone Screen NEGATIVE (NEGATIVE) 01/27/18 14:30 Ur Barbiturates Screen NEGATIVE (NEGATIVE) 01/27/18 14:30 Ur Tricyclics Screen NEGATIVE (NEGATIVE) 01/27/18 14:30 Ur Phencyclidine Scrn NEGATIVE (NEGATIVE) 01/27/18 14:30 Amphetamines Screen NEGATIVE (NEGATIVE) 01/27/18 14:30 U Methamphetamines Scrn NEGATIVE (NEGATIVE) 01/27/18 14:30 U Benzodiazepines Scrn NEGATIVE (NEGATIVE) 01/27/18 14:30 U Cocaine Metab Screen NEGATIVE (NEGATIVE) 01/27/18 14:30 U Cannabinoids Screen NEGATIVE (NEGATIVE) 01/27/18 14:30 - Physical Exam Vitals and I&O: Vital Signs Temp 97.9 F 02/03/18 06:09 Pulse 50 02/03/18 06:09 Resp 18 02/03/18 06:09 BP 144/74 02/03/18 06:09 Pulse Ox 99 02/03/18 06:09 Intake & Output 02/02/18 02/03/18 02/03/18 18:59 06:59 18:59 Intake Total 900 480 Balance 900 480 Intake: Oral 900 480 Other: # Voids 4 2 # Bowel Movements 1 Active Medications: Current Medications Acetaminophen (Tylenol) 650 mg PO Q4HR PRN PRN Reason: Mild Pain 1-3 / Temp above 100 Stop: 03/28/18 18:44 Al Hydrox/Mg Hydrox/Simethicone (Maalox) 30 ml PO Q4HR PRN PRN Reason: GI DISTRESS Stop: 03/29/18 12:14 Bisacodyl (Dulcolax 10 Mg Supp) 10 mg RC DAILY PRN PRN Reason: IF MOM INEFFECTIVE Stop: 03/28/18 20:02 Divalproex Sodium (Depakote Dr) 125 mg PO Q12HR SURAJ; Protocol Stop: 03/29/18 20:59 Last Admin: 02/03/18 09:53 Dose: 125 mg Docusate Sodium (Colace) 100 mg PO DAILY SURAJ Stop: 03/29/18 08:59 Last Admin: 02/03/18 09:53 Dose: 100 mg Famotidine (Pepcid) 40 mg PO HS SURAJ Stop: 03/28/18 20:59 Last Admin: 02/02/18 20:41 Dose: 40 mg Insulin Aspart (Novolog Insulin Sliding Scale) 0 units SUBQ ACHS [facility]; Protocol Stop: 03/28/18 20:59 Last Admin: 02/03/18 11:49 Dose: 6 units Insulin Detemir (Levemir Insulin) 20 units SUBQ HS [facility]; Protocol Stop: 03/28/18 20:59 Last Admin: 02/02/18 20:44 Dose: 20 units Insulin Detemir (Levemir Insulin) 14 units SUBQ DAILY [facility]; Protocol Stop: 04/04/18 08:59 Last Admin: 02/03/18 09:20 Dose: 14 units Lorazepam (Ativan) 0.5 mg PO Q6HR PRN; Protocol PRN Reason: Anxiety Stop: 03/29/18 12:14 Magnesium Hydroxide (Milk Of Magnesia) 30 ml PO HS PRN PRN Reason: Constipation Stop: 03/29/18 12:14 Multivitamins/Vitamin C (Theragran) 1 tab PO DAILY SURAJ Stop: 03/29/18 08:59 Last Admin: 02/03/18 09:53 Dose: 1 tab Psyllium Hydrophilic Mucilloid (Metamucil) 1 pkt PO BID SURAJ Stop: 03/29/18 08:59 Last Admin: 02/03/18 09:54 Dose: 1 pkt Quetiapine Fumarate (Seroquel) 25 mg PO BID [facility]; Protocol Stop: 03/29/18 08:59 Last Admin: 02/03/18 09:53 Dose: 25 mg Sodium Phosphate (Fleet Enema) 135 ml RC Q48H PRN PRN Reason: IF DULCOLAX INEFFECTIVE Stop: 03/28/18 20:02 Zolpidem Tartrate (Ambien) 5 mg PO HS PRN PRN Reason: Insomnia Stop: 03/28/18 18:44 General: weak, demented HEENT: NC/AT, PERRLA Neck: Supple Lungs: CTAB Cardiovascular: RRR, Normal S1, Normal S2, without murmur Abdomen: soft, non-tender, non-distended, positive bowel sound Extremities: excoriation Neurological: no change, disorganized Internal Medicine Assmt/Plan - Assessment Assessment: - Assessment Assessment: agitation dm obesity hyponatremia low albumin htn cardiomegaly schizoaffective hdl - Plan Plan: fall precautions monitor bp closely cpm - Plan Plan: will add lantus in am incease to 14 Nutritional Asmnt/Malnutr-PDOC - Dietary Evaluation Malnutrition Findings (Please click <Entered> for more info): Nutritional Asmnt/Malnutrition Start: 01/28/18 14: 11 Text: Status: Complete Freq: Protocol: Document 01/28/18 14:11 [email or web address] (Rec: 01/28/18 14:18 ANOOP [email or web address]) Nutritional Asmnt/Malnutrition Patient General Information Nutritional Screening High Risk Consult Diagnosis increased agitation, psychosis Pertinent Medical Hx/Surgical Hx DM, depression, schizophrenia, bipolar, pschosis Subjective Information Pt seen in his room talking with doctor. Glucose 407 at admission noted. Pt is [place] speaking noted. Not able to provide nutrition education d/ t language barrier at this time. [facility] Pertinent Medications colace, pepcid, novolog, levemir, theragran, seroquel Pertinent Labs 01/28 POC 191-376 01/27 Na 133, Cr 1.4, glucose 407, POC 278-361 Nutritional Hx/Data Height 1.63 m Height (Calculated Centimeters) 162.6 Current Weight (lbs) 95.254 kg Weight (Calculated Kilograms) 95.3 Weight (Calculated Grams) 51702.4 [place] Body Weight 130 Body Mass Index (BMI) 36.0 Weight Status Obese GI Symptoms GI Symptoms None Last BM none noted Skin Integrity/Comment: intact Estimated Nutritional Goals BEE in Kcals: Adj wt of IBW Calories/Kcals/Kg 25-30 Kcals Calculated 5174-1528 Protein: Adj wt of IBW Protein g/k-1.2 Protein Calculated 68-82 Fluid: ml 1700-2040ml (1ml/kcal) Nutritional Problem 1. Problem Problem altered nutrition relatedl abs Etiology hx of DM, hyperlipidemia Signs/Symptoms: glucose 407, POC 278-367 Malnutrition Alert Is there a minimum of two criteria No selected? Query Text:Check all the applicable criteria. A minimum of two criteria are recommended for diagnosis of either severe or non-severe malnutrition. Malnutrition Related to Morbid Obesity Malnutrition related to morbid obesity No Intervention/Recommendation Comments 1. Continue with [facility]-60gm diet as ordered. MD to adjust insulin regimen for optimal glycemic control 2. Monitor PO intake, wt, labs and skin integrity 3. F/U as moderate risk in 3-5 days, 01/31-02/02, PO check 01/30 Expected Outcomes/Goals Expected Outcomes/Goals 1. PO intake to meet at least 75% of nutritional needs. 2. Wt stability, skin to remain intact, labs to approach WNL.
--- NOTE | 2018-02-04 06:09 | Psychiatric Evaluation ---
DATE OF SERVICE: 02/03/[address] White. HISTORY OF PRESENT ILLNESS: The patient is a 67-year-old male who was brought in here by [facility]. The patient had reported initially that he had gone to a female and pulled his pants down and noted to be sexually inappropriate with a diagnosis of bipolar. CURRENT MEDICATIONS REGIMEN: He is on Depakote 125 p.o. b.i.d., Ativan as needed, and Seroquel 25 mg p.o. b.i.d. Blood sugars on 02/02/2018 is 328. Nursing staff reported the patient is redirectable, compliant with medications. As early as yesterday, the patient is noted to be constricted, sexually preoccupied. Today on [id number] evaluation, the patient continues to run to wander and aimlessly walking in the unit, needs a lot of redirection as he continues to be sexually preoccupied. MENTAL STATUS EXAMINATION: Poor insight, judgment, and poor impulse control as evidenced by the patient's pulling down his pants. ASSESSMENT AND PLAN: The patient continues to be grossly disorganized and impulsive. We will continue with primary psychiatrist's treatment plan and goals to target the patient's ongoing symptoms. [facility]# [id number]
[2018-02-04] MEDS: INSULIN ASPART SLIDING SCALE 100 UNITS/ML UNIT SUBQ SCH ×4 (06:32→20:46)
[2018-02-04] MEDS: Insulin Detemir 100 units/mL 10mL Vial SUBQ SCH ×2 (09:21→20:47)
[2018-02-04] MEDS: Multivitamin Tab PO SCH (09:22)
--- NOTE | 2018-02-04 10:01 | Progress Notes ---
DATE: SUBJECTIVE: The patient was seen and evaluated. The patient's chart reviewed. This is Dr. Reyes covering for Dr. White. We reviewed his medications of Depakote and Seroquel. Today, nursing staff reporting that the patient continues to mostly wander aimlessly in the unit, easily distracted and also hypersexual. Today on [id number] evaluation, ____ continues to be with poor insight, judgment and also very impulsive. ASSESSMENT AND PLAN: Today the patient is impulsive, disorganized ____ able to continue with primary psychiatrist's treatment plan and goals. JOB# [id number]
--- NOTE | 2018-02-04 14:48 | Internal Medicine Prog Note ---
Internal Medicine Subjective - Subjective Patient seen and examined:: with staff, chart reviewed Patient is:: awake, verbal, interactive, agitated Per staff patient has:: no adverse event, no episodes of fall, tolerating meds Internal Medicine Objective - Results Result Diagrams: 01/27/18 14:37 01/27/18 14:37 Recent Labs: Laboratory Last Values WBC 10.8 Th/cmm (4.8-10.8) 01/27/18 14:37 RBC 5.44 Mil/cmm (3.80-5.80) 01/27/18 14:37 Hgb 14.9 gm/dL (-16) 01/27/18 14:37 Hct 43.9 % (41.0-60) 01/27/18 14:37 MCV 80.6 fl (80-99) 01/27/18 14:37 MCH 27.4 pg (27.0-31.0) 01/27/18 14:37 MCHC Differential 34.0 pg (28.0-36.0) 01/27/18 14:37 RDW 12.8 % (11.5-20.0) 01/27/18 14:37 Plt Count 354 Th/cmm (150-400) 01/27/18 14:37 MPV 6.9 fl 01/27/18 14:37 Neutrophils % 77.0 % (40.0-80.0) 01/27/18 14:37 Lymphocytes % 18.7 % (20.0-50.0) L 01/27/18 14:37 Monocytes % 1.7 % (2.0-10.0) L 01/27/18 14:37 Eosinophils % 2.5 % (0.0-5.0) 01/27/18 14:37 Basophils % 0.1 % (0.0-2.0) 01/27/18 14:37 Sodium 133 mEq/L (136-145) L 01/27/18 14:37 Potassium 4.2 mEq/L (3.5-5.1) 01/27/18 14:37 Chloride 98 mEq/L (98-107) 01/27/18 14:37 Carbon Dioxide 23.0 mEq/L (21.0-31.0) 01/27/18 14:37 Anion Gap 16.2 (7.0-16.0) H 01/27/18 14:37 BUN 17 mg/dL (7-25) 01/27/18 14:37 Creatinine 1.4 mg/dL (0.7-1.3) H 01/27/18 14:37 Est GFR ( Amer) > 60.0 ml/min (>90) 01/27/18 14:37 Est GFR (Non-Af Amer) 53.7 ml/min 01/27/18 14:37 BUN/Creatinine Ratio 12.1 01/27/18 14:37 Glucose 404 mg/dL (70-105) H 01/31/18 16:50 POC Glucose 328 MG/DL (70 - 105) H 02/02/18 11:17 Calcium 9.4 mg/dL (8.6-10.3) 01/27/18 14:37 Phosphorus 3.3 mg/dL (2.5-5.0) 01/27/18 14:37 Magnesium 2.0 mg/dL (1.9-2.7) 01/27/18 14:37 Total Bilirubin 0.4 mg/dL (0.3-1.0) 01/27/18 14:37 AST 11 U/L (13-39) L 01/27/18 14:37 ALT 17 U/L (7-52) 01/27/18 14:37 Alkaline Phosphatase 89 U/L (34-104) 01/27/18 14:37 Total Protein 7.2 gm/dL (6.0-8.3) 01/27/18 14:37 Albumin 3.4 gm/dL (4.2-5.5) L 01/27/18 14:37 Globulin 3.8 gm/dL 01/27/18 14:37 Albumin/Globulin Ratio 0.9 (1.0-1.8) L 01/27/18 14:37 Triglycerides 146 mg/dL (<150) 01/27/18 14:37 Cholesterol 167 mg/dL (<200) 01/27/18 14:37 LDL Cholesterol Direct 113 mg/dL (75-193) 01/27/18 14:37 HDL Cholesterol 43 mg/dL (23-92) 01/27/18 14:37 TSH 1.11 uIU/ml (0.34-5.60) 01/27/18 14:37 Urine Source CLEAN C 01/27/18 14:30 Urine Color YELLOW 01/27/18 14:30 Urine Clarity CLEAR (CLEAR) 01/27/18 14:30 Urine pH 6.0 (4.6 - 8.0) 01/27/18 14:30 Ur Specific [place] 1.025 (1.005-1.030) 01/27/18 14:30 Urine Protein NEGATIVE mg/dL (NEGATIVE) 01/27/18 14:30 Urine Glucose (UA) >=1000 mg/dL (NEGATIVE) H 01/27/18 14:30 Urine Ketones TRACE mg/dL (NEGATIVE) 01/27/18 14:30 Urine Blood NEGATIVE (NEGATIVE) 01/27/18 14:30 Urine Nitrate NEGATIVE (NEGATIVE) 01/27/18 14:30 Urine Bilirubin NEGATIVE (NEGATIVE) 01/27/18 14:30 Urine Urobilinogen 0.2 E.U./dL (0.2 - 1.0) 01/27/18 14:30 Ur Leukocyte Esterase NEGATIVE (NEGATIVE) 01/27/18 14:30 Urine RBC 0-2 /hpf (0-5) H 01/27/18 14:30 Urine WBC 0-2 /hpf (0-5) 01/27/18 14:30 Ur Epithelial Cells FEW /lpf (FEW) 01/27/18 14:30 Urine Bacteria FEW /hpf (NONE SEEN) 01/27/18 14:30 Urine Mucus FEW /lpf (FEW) 01/27/18 14:30 Urine Opiates Screen NEGATIVE (NEGATIVE) 01/27/18 14:30 Urine Methadone Screen NEGATIVE (NEGATIVE) 01/27/18 14:30 Ur Barbiturates Screen NEGATIVE (NEGATIVE) 01/27/18 14:30 Ur Tricyclics Screen NEGATIVE (NEGATIVE) 01/27/18 14:30 Ur Phencyclidine Scrn NEGATIVE (NEGATIVE) 01/27/18 14:30 Amphetamines Screen NEGATIVE (NEGATIVE) 01/27/18 14:30 U Methamphetamines Scrn NEGATIVE (NEGATIVE) 01/27/18 14:30 U Benzodiazepines Scrn NEGATIVE (NEGATIVE) 01/27/18 14:30 U Cocaine Metab Screen NEGATIVE (NEGATIVE) 01/27/18 14:30 U Cannabinoids Screen NEGATIVE (NEGATIVE) 01/27/18 14:30 - Physical Exam Vitals and I&O: Vital Signs Temp 97.8 F 02/04/18 06:08 Pulse 68 02/04/18 06:08 Resp 20 02/04/18 06:08 BP 148/95 02/04/18 06:08 Pulse Ox 99 02/04/18 06:08 Intake & Output 02/03/18 02/04/18 02/04/18 18:59 06:59 18:59 Intake Total 1200 240 Balance 1200 240 Weight (lbs) 95.254 kg Intake: Oral 1200 240 Other: # Voids 4 3 # Bowel Movements 1 0 Weight Source Bedscale Active Medications: Current Medications Acetaminophen (Tylenol) 650 mg PO Q4HR PRN PRN Reason: Mild Pain 1-3 / Temp above 100 Stop: 03/28/18 18:44 Al Hydrox/Mg Hydrox/Simethicone (Maalox) 30 ml PO Q4HR PRN PRN Reason: GI DISTRESS Stop: 03/29/18 12:14 Bisacodyl (Dulcolax 10 Mg Supp) 10 mg RC DAILY PRN PRN Reason: IF MOM INEFFECTIVE Stop: 03/28/18 20:02 Divalproex Sodium (Depakote Dr) 125 mg PO Q12HR [facility]; Protocol Stop: 03/29/18 20:59 Last Admin: 02/04/18 09:22 Dose: 125 mg Docusate Sodium (Colace) 100 mg PO DAILY [facility] Stop: 03/29/18 08:59 Last Admin: 02/04/18 09:22 Dose: 100 mg Famotidine (Pepcid) 40 mg PO HS [facility] Stop: 03/28/18 20:59 Last Admin: 02/03/18 20:57 Dose: 40 mg Insulin Aspart (Novolog Insulin Sliding Scale) 0 units SUBQ ACHS [facility]; Protocol Stop: 03/28/18 20:59 Last Admin: 02/04/18 12:21 Dose: 6 units Insulin Detemir (Levemir Insulin) 20 units SUBQ HS [facility]; Protocol Stop: 03/28/18 20:59 Last Admin: 02/03/18 21:06 Dose: 20 units Insulin Detemir (Levemir Insulin) 14 units SUBQ DAILY [facility]; Protocol Stop: 04/04/18 08:59 Last Admin: 02/04/18 09:21 Dose: 14 units Lorazepam (Ativan) 0.5 mg PO Q6HR PRN; Protocol PRN Reason: Anxiety Stop: 03/29/18 12:14 Magnesium Hydroxide (Milk Of Magnesia) 30 ml PO HS PRN PRN Reason: Constipation Stop: 03/29/18 12:14 Multivitamins/Vitamin C (Theragran) 1 tab PO DAILY [facility] Stop: 03/29/18 08:59 Last Admin: 02/04/18 09:22 Dose: 1 tab Psyllium Hydrophilic Mucilloid (Metamucil) 1 pkt PO BID [facility] Stop: 03/29/18 08:59 Last Admin: 02/04/18 09:22 Dose: 1 pkt Quetiapine Fumarate (Seroquel) 25 mg PO BID [facility]; Protocol Stop: 03/29/18 08:59 Last Admin: 02/04/18 09:22 Dose: 25 mg Sodium Phosphate (Fleet Enema) 135 ml RC Q48H PRN PRN Reason: IF DULCOLAX INEFFECTIVE Stop: 03/28/18 20:02 Zolpidem Tartrate (Ambien) 5 mg PO HS PRN PRN Reason: Insomnia Stop: 03/28/18 18:44 General: weak, demented HEENT: NC/AT, PERRLA Neck: Supple Lungs: CTAB Cardiovascular: RRR, Normal S1, Normal S2, without murmur Abdomen: soft, non-tender, non-distended, positive bowel sound Extremities: excoriation Neurological: no change, disorganized Internal Medicine Assmt/Plan - Assessment Assessment: - Assessment Assessment: agitation dm obesity hyponatremia low albumin htn cardiomegaly schizoaffective hdl - Plan Plan: fall precautions monitor bp closely cpm - Plan Plan: will add lantus in am incease to 14 Nutritional Asmnt/Malnutr-PDOC - Dietary Evaluation Malnutrition Findings (Please click <Entered> for more info): Nutritional Asmnt/Malnutrition Start: 01/28/18 14: 11 Text: Status: Complete Freq: Protocol: Document 01/28/18 14:11 LCHENG (Rec: 01/28/18 14:18 LCEVERARDOG [email or web address]) Nutritional Asmnt/Malnutrition Patient General Information Nutritional Screening High Risk Consult Diagnosis increased agitation, psychosis Pertinent Medical Hx/Surgical Hx DM, depression, schizophrenia, bipolar, pschosis Subjective Information Pt seen in his room talking with doctor. Glucose 407 at admission noted. Pt is Azeri speaking noted. Not able to provide nutrition education d/ t language barrier at this time. Current Diet Order/ Nutrition Support CCHo 60gm Pertinent Medications colace, pepcid, novolog, levemir, theragran, seroquel Pertinent Labs 01/28 POC 191-376 01/27 Na 133, Cr 1.4, glucose 407, POC 278-361 Nutritional Hx/Data Height 1.63 m Height (Calculated Centimeters) 162.6 Current Weight (lbs) 95.254 kg Weight (Calculated Kilograms) 95.3 Weight (Calculated Grams) 47117.4 [place] Body Weight 130 Body Mass Index (BMI) 36.0 Weight Status Obese GI Symptoms GI Symptoms None Last BM none noted Skin Integrity/Comment: intact Estimated Nutritional Goals BEE in Kcals: Adj wt of IBW Calories/Kcals/Kg 25-30 Kcals Calculated 5345-3793 Protein: Adj wt of IBW Protein g/k-1.2 Protein Calculated 68-82 Fluid: ml 1700-2040ml (1ml/kcal) Nutritional Problem 1. Problem Problem altered nutrition relatedl abs Etiology hx of DM, hyperlipidemia Signs/Symptoms: glucose 407, POC 278-367 Malnutrition Alert Is there a minimum of two criteria No selected? Query Text:Check all the applicable criteria. A minimum of two criteria are recommended for diagnosis of either severe or non-severe malnutrition. Malnutrition Related to Morbid Obesity Malnutrition related to morbid obesity No Intervention/Recommendation Comments 1. Continue with [facility]-60gm diet as ordered. MD to adjust insulin regimen for optimal glycemic control 2. Monitor PO intake, wt, labs and skin integrity 3. F/U as moderate risk in 3-5 days, 01/31-02/02, PO check 01/30 Expected Outcomes/Goals Expected Outcomes/Goals 1. PO intake to meet at least 75% of nutritional needs. 2. Wt stability, skin to remain intact, labs to approach WNL.
[2018-02-05] MEDS: INSULIN ASPART SLIDING SCALE 100 UNITS/ML UNIT SUBQ SCH ×4 (07:19→20:37)
[2018-02-05] MEDS: Insulin Detemir 100 units/mL 10mL Vial SUBQ SCH ×2 (09:05→20:37)
[2018-02-05] MEDS: Multivitamin Tab PO SCH (09:08)
--- NOTE | 2018-02-05 14:12 | Internal Medicine Prog Note ---
Internal Medicine Subjective - Subjective Patient seen and examined:: with staff, chart reviewed Patient is:: awake, verbal, interactive, agitated Per staff patient has:: no adverse event, no episodes of fall, tolerating meds Internal Medicine Objective - Results Result Diagrams: 01/27/18 14:37 01/27/18 14:37 Recent Labs: Laboratory Last Values WBC 10.8 Th/cmm (4.8-10.8) 01/27/18 14:37 RBC 5.44 Mil/cmm (3.80-5.80) 01/27/18 14:37 Hgb 14.9 gm/dL (-16) 01/27/18 14:37 Hct 43.9 % (41.0-60) 01/27/18 14:37 MCV 80.6 fl (80-99) 01/27/18 14:37 MCH 27.4 pg (27.0-31.0) 01/27/18 14:37 MCHC Differential 34.0 pg (28.0-36.0) 01/27/18 14:37 RDW 12.8 % (11.5-20.0) 01/27/18 14:37 Plt Count 354 Th/cmm (150-400) 01/27/18 14:37 MPV 6.9 fl 01/27/18 14:37 Neutrophils % 77.0 % (40.0-80.0) 01/27/18 14:37 Lymphocytes % 18.7 % (20.0-50.0) L 01/27/18 14:37 Monocytes % 1.7 % (2.0-10.0) L 01/27/18 14:37 Eosinophils % 2.5 % (0.0-5.0) 01/27/18 14:37 Basophils % 0.1 % (0.0-2.0) 01/27/18 14:37 Sodium 133 mEq/L (136-145) L 01/27/18 14:37 Potassium 4.2 mEq/L (3.5-5.1) 01/27/18 14:37 Chloride 98 mEq/L (98-107) 01/27/18 14:37 Carbon Dioxide 23.0 mEq/L (21.0-31.0) 01/27/18 14:37 Anion Gap 16.2 (7.0-16.0) H 01/27/18 14:37 BUN 17 mg/dL (7-25) 01/27/18 14:37 Creatinine 1.4 mg/dL (0.7-1.3) H 01/27/18 14:37 Est GFR ( Amer) > 60.0 ml/min (>90) 01/27/18 14:37 Est GFR (Non-Af Amer) 53.7 ml/min 01/27/18 14:37 BUN/Creatinine Ratio 12.1 01/27/18 14:37 Glucose 404 mg/dL (70-105) H 01/31/18 16:50 POC Glucose 283 MG/DL (70 - 105) H 02/05/18 12:05 Calcium 9.4 mg/dL (8.6-10.3) 01/27/18 14:37 Phosphorus 3.3 mg/dL (2.5-5.0) 01/27/18 14:37 Magnesium 2.0 mg/dL (1.9-2.7) 01/27/18 14:37 Total Bilirubin 0.4 mg/dL (0.3-1.0) 01/27/18 14:37 AST 11 U/L (13-39) L 01/27/18 14:37 ALT 17 U/L (7-52) 01/27/18 14:37 Alkaline Phosphatase 89 U/L (34-104) 01/27/18 14:37 Total Protein 7.2 gm/dL (6.0-8.3) 01/27/18 14:37 Albumin 3.4 gm/dL (4.2-5.5) L 01/27/18 14:37 Globulin 3.8 gm/dL 01/27/18 14:37 Albumin/Globulin Ratio 0.9 (1.0-1.8) L 01/27/18 14:37 Triglycerides 146 mg/dL (<150) 01/27/18 14:37 Cholesterol 167 mg/dL (<200) 01/27/18 14:37 LDL Cholesterol Direct 113 mg/dL (75-193) 01/27/18 14:37 HDL Cholesterol 43 mg/dL (23-92) 01/27/18 14:37 TSH 1.11 uIU/ml (0.34-5.60) 01/27/18 14:37 Urine Source CLEAN C 01/27/18 14:30 Urine Color YELLOW 01/27/18 14:30 Urine Clarity CLEAR (CLEAR) 01/27/18 14:30 Urine pH 6.0 (4.6 - 8.0) 01/27/18 14:30 Ur Specific [place] 1.025 (1.005-1.030) 01/27/18 14:30 Urine Protein NEGATIVE mg/dL (NEGATIVE) 01/27/18 14:30 Urine Glucose (UA) >=1000 mg/dL (NEGATIVE) H 01/27/18 14:30 Urine Ketones TRACE mg/dL (NEGATIVE) 01/27/18 14:30 Urine Blood NEGATIVE (NEGATIVE) 01/27/18 14:30 Urine Nitrate NEGATIVE (NEGATIVE) 01/27/18 14:30 Urine Bilirubin NEGATIVE (NEGATIVE) 01/27/18 14:30 Urine Urobilinogen 0.2 E.U./dL (0.2 - 1.0) 01/27/18 14:30 Ur Leukocyte Esterase NEGATIVE (NEGATIVE) 01/27/18 14:30 Urine RBC 0-2 /hpf (0-5) H 01/27/18 14:30 Urine WBC 0-2 /hpf (0-5) 01/27/18 14:30 Ur Epithelial Cells FEW /lpf (FEW) 01/27/18 14:30 Urine Bacteria FEW /hpf (NONE SEEN) 01/27/18 14:30 Urine Mucus FEW /lpf (FEW) 01/27/18 14:30 Urine Opiates Screen NEGATIVE (NEGATIVE) 01/27/18 14:30 Urine Methadone Screen NEGATIVE (NEGATIVE) 01/27/18 14:30 Ur Barbiturates Screen NEGATIVE (NEGATIVE) 01/27/18 14:30 Ur Tricyclics Screen NEGATIVE (NEGATIVE) 01/27/18 14:30 Ur Phencyclidine Scrn NEGATIVE (NEGATIVE) 01/27/18 14:30 Amphetamines Screen NEGATIVE (NEGATIVE) 01/27/18 14:30 U Methamphetamines Scrn NEGATIVE (NEGATIVE) 01/27/18 14:30 U Benzodiazepines Scrn NEGATIVE (NEGATIVE) 01/27/18 14:30 U Cocaine Metab Screen NEGATIVE (NEGATIVE) 01/27/18 14:30 U Cannabinoids Screen NEGATIVE (NEGATIVE) 01/27/18 14:30 - Physical Exam Vitals and I&O: Vital Signs Temp 97.0 F 02/05/18 05:54 Pulse 55 02/05/18 05:54 Resp 18 02/05/18 05:54 BP 153/70 02/05/18 06:04 Pulse Ox 97 02/05/18 05:54 Intake & Output 02/04/18 02/05/18 02/05/18 18:59 06:59 18:59 Intake Total 2400 240 Balance 2400 240 Intake: Oral 2400 240 Other: # Voids 5 2 # Bowel Movements 1 Active Medications: Current Medications Acetaminophen (Tylenol) 650 mg PO Q4HR PRN PRN Reason: Mild Pain 1-3 / Temp above 100 Stop: 03/28/18 18:44 Al Hydrox/Mg Hydrox/Simethicone (Maalox) 30 ml PO Q4HR PRN PRN Reason: GI DISTRESS Stop: 03/29/18 12:14 Bisacodyl (Dulcolax 10 Mg Supp) 10 mg RC DAILY PRN PRN Reason: IF MOM INEFFECTIVE Stop: 03/28/18 20:02 Divalproex Sodium (Depakote Dr) 125 mg PO Q12HR [facility]; Protocol Stop: 03/29/18 20:59 Last Admin: 02/05/18 09:08 Dose: 125 mg Docusate Sodium (Colace) 100 mg PO DAILY [facility] Stop: 03/29/18 08:59 Last Admin: 02/05/18 09:08 Dose: 100 mg Famotidine (Pepcid) 40 mg PO HS [facility] Stop: 03/28/18 20:59 Last Admin: 02/04/18 20:44 Dose: 40 mg Insulin Aspart (Novolog Insulin Sliding Scale) 0 units SUBQ ACHS [facility]; Protocol Stop: 03/28/18 20:59 Last Admin: 02/05/18 12:09 Dose: 8 units Insulin Detemir (Levemir Insulin) 20 units SUBQ HS [facility]; Protocol Stop: 03/28/18 20:59 Last Admin: 02/04/18 20:47 Dose: 20 units Insulin Detemir (Levemir Insulin) 14 units SUBQ DAILY [facility]; Protocol Stop: 04/04/18 08:59 Last Admin: 02/05/18 09:05 Dose: 14 units Lorazepam (Ativan) 0.5 mg PO Q6HR PRN; Protocol PRN Reason: Anxiety Stop: 03/29/18 12:14 Magnesium Hydroxide (Milk Of Magnesia) 30 ml PO HS PRN PRN Reason: Constipation Stop: 03/29/18 12:14 Multivitamins/Vitamin C (Theragran) 1 tab PO DAILY [facility] Stop: 03/29/18 08:59 Last Admin: 02/05/18 09:08 Dose: 1 tab Psyllium Hydrophilic Mucilloid (Metamucil) 1 pkt PO BID [facility] Stop: 03/29/18 08:59 Last Admin: 02/05/18 09:07 Dose: 1 pkt Quetiapine Fumarate (Seroquel) 25 mg PO BID [facility]; Protocol Stop: 03/29/18 08:59 Last Admin: 02/05/18 09:08 Dose: 25 mg Sodium Phosphate (Fleet Enema) 135 ml RC Q48H PRN PRN Reason: IF DULCOLAX INEFFECTIVE Stop: 03/28/18 20:02 Zolpidem Tartrate (Ambien) 5 mg PO HS PRN PRN Reason: Insomnia Stop: 03/28/18 18:44 Last Admin: 02/04/18 20:44 Dose: 5 mg General: weak, demented HEENT: NC/AT, PERRLA Neck: Supple Lungs: CTAB Cardiovascular: RRR, Normal S1, Normal S2, without murmur Abdomen: soft, non-tender, non-distended, positive bowel sound Extremities: excoriation Neurological: no change, disorganized Internal Medicine Assmt/Plan - Assessment Assessment: - Assessment Assessment: agitation dm obesity hyponatremia low albumin htn cardiomegaly schizoaffective hdl - Plan Plan: fall precautions monitor bp closely cpm - Plan Plan: will add lantus in am incease to 14 Nutritional Asmnt/Malnutr-PDOC - Dietary Evaluation Malnutrition Findings (Please click <Entered> for more info): Nutritional Asmnt/Malnutrition Start: 01/28/18 14: 11 Text: Status: Complete Freq: Protocol: Document 01/28/18 14:11 LCHENG (Rec: 01/28/18 14:18 LCEVERARDOG [email or web address]) Nutritional Asmnt/Malnutrition Patient General Information Nutritional Screening High Risk Consult Diagnosis increased agitation, psychosis Pertinent Medical Hx/Surgical Hx DM, depression, schizophrenia, bipolar, pschosis Subjective Information Pt seen in his room talking with doctor. Glucose 407 at admission noted. Pt is Cym[place] speaking noted. Not able to provide nutrition education d/ t language barrier at this time. Current Diet Order/ Nutrition Support CCHo 60gm Pertinent Medications colace, pepcid, novolog, levemir, theragran, seroquel Pertinent Labs 01/28 POC 191-376 01/27 Na 133, Cr 1.4, glucose 407, POC 278-361 Nutritional Hx/Data Height 1.63 m Height (Calculated Centimeters) 162.6 Current Weight (lbs) 95.254 kg Weight (Calculated Kilograms) 95.3 Weight (Calculated Grams) 39684.4 [place] Body Weight 130 Body Mass Index (BMI) 36.0 Weight Status Obese GI Symptoms GI Symptoms None Last BM none noted Skin Integrity/Comment: intact Estimated Nutritional Goals BEE in Kcals: Adj wt of IBW Calories/Kcals/Kg 25-30 Kcals Calculated 1825-3352 Protein: Adj wt of IBW Protein g/k-1.2 Protein Calculated 68-82 Fluid: ml 1700-2040ml (1ml/kcal) Nutritional Problem 1. Problem Problem altered nutrition relatedl abs Etiology hx of DM, hyperlipidemia Signs/Symptoms: glucose 407, POC 278-367 Malnutrition Alert Is there a minimum of two criteria No selected? Query Text:Check all the applicable criteria. A minimum of two criteria are recommended for diagnosis of either severe or non-severe malnutrition. Malnutrition Related to Morbid Obesity Malnutrition related to morbid obesity No Intervention/Recommendation Comments 1. Continue with [facility]-60gm diet as ordered. MD to adjust insulin regimen for optimal glycemic control 2. Monitor PO intake, wt, labs and skin integrity 3. F/U as moderate risk in 3-5 days, 01/31-02/02, PO check 01/30 Expected Outcomes/Goals Expected Outcomes/Goals 1. PO intake to meet at least 75% of nutritional needs. 2. Wt stability, skin to remain intact, labs to approach WNL.
--- NOTE | 2018-02-05 23:14 | Progress Notes ---
DATE: 02/05/2018 SUBJECTIVE: Staff was spoken to. The patient is interviewed. Mood is noted to be irritable. Affect is constricted. The patient has been getting into other people's rooms and then trying to steal their food. The patient has no insight into his illness. Coping skills are noted to be extremely poor. Insight and judgment also noted to be very much impaired. ASSESSMENT: The patient is still grossly psychotic and impulsive. PLAN: To continue the patient with the supportive therapy and encouraged the patient to verbalize the concerns rather than to act out. JOB# [id number]
[2018-02-06] MEDS: INSULIN ASPART SLIDING SCALE 100 UNITS/ML UNIT SUBQ SCH ×2 (06:42→12:02)
[2018-02-06] MEDS: Insulin Detemir 100 units/mL 10mL Vial SUBQ SCH (08:08)
[2018-02-06] MEDS: Multivitamin Tab PO SCH (08:09)
--- NOTE | 2018-02-06 15:03 | Internal Medicine Prog Note ---
Internal Medicine Subjective - Subjective Patient seen and examined:: other (late entry, pt seen at 10 am) Patient is:: awake, verbal, interactive, agitated Per staff patient has:: no adverse event, no episodes of fall, tolerating meds Internal Medicine Objective - Results Result Diagrams: 01/27/18 14:37 01/27/18 14:37 Recent Labs: Laboratory Last Values WBC 10.8 Th/cmm (4.8-10.8) 01/27/18 14:37 RBC 5.44 Mil/cmm (3.80-5.80) 01/27/18 14:37 Hgb 14.9 gm/dL (-16) 01/27/18 14:37 Hct 43.9 % (41.0-60) 01/27/18 14:37 MCV 80.6 fl (80-99) 01/27/18 14:37 MCH 27.4 pg (27.0-31.0) 01/27/18 14:37 MCHC Differential 34.0 pg (28.0-36.0) 01/27/18 14:37 RDW 12.8 % (11.5-20.0) 01/27/18 14:37 Plt Count 354 Th/cmm (150-400) 01/27/18 14:37 MPV 6.9 fl 01/27/18 14:37 Neutrophils % 77.0 % (40.0-80.0) 01/27/18 14:37 Lymphocytes % 18.7 % (20.0-50.0) L 01/27/18 14:37 Monocytes % 1.7 % (2.0-10.0) L 01/27/18 14:37 Eosinophils % 2.5 % (0.0-5.0) 01/27/18 14:37 Basophils % 0.1 % (0.0-2.0) 01/27/18 14:37 Sodium 133 mEq/L (136-145) L 01/27/18 14:37 Potassium 4.2 mEq/L (3.5-5.1) 01/27/18 14:37 Chloride 98 mEq/L (98-107) 01/27/18 14:37 Carbon Dioxide 23.0 mEq/L (21.0-31.0) 01/27/18 14:37 Anion Gap 16.2 (7.0-16.0) H 01/27/18 14:37 BUN 17 mg/dL (7-25) 01/27/18 14:37 Creatinine 1.4 mg/dL (0.7-1.3) H 01/27/18 14:37 Est GFR ( Amer) > 60.0 ml/min (>90) 01/27/18 14:37 Est GFR (Non-Af Amer) 53.7 ml/min 01/27/18 14:37 BUN/Creatinine Ratio 12.1 01/27/18 14:37 Glucose 404 mg/dL (70-105) H 01/31/18 16:50 POC Glucose 225 MG/DL (70 - 105) H 02/06/18 11:43 Calcium 9.4 mg/dL (8.6-10.3) 01/27/18 14:37 Phosphorus 3.3 mg/dL (2.5-5.0) 01/27/18 14:37 Magnesium 2.0 mg/dL (1.9-2.7) 01/27/18 14:37 Total Bilirubin 0.4 mg/dL (0.3-1.0) 01/27/18 14:37 AST 11 U/L (13-39) L 01/27/18 14:37 ALT 17 U/L (7-52) 01/27/18 14:37 Alkaline Phosphatase 89 U/L (34-104) 01/27/18 14:37 Total Protein 7.2 gm/dL (6.0-8.3) 01/27/18 14:37 Albumin 3.4 gm/dL (4.2-5.5) L 01/27/18 14:37 Globulin 3.8 gm/dL 01/27/18 14:37 Albumin/Globulin Ratio 0.9 (1.0-1.8) L 01/27/18 14:37 Triglycerides 146 mg/dL (<150) 01/27/18 14:37 Cholesterol 167 mg/dL (<200) 01/27/18 14:37 LDL Cholesterol Direct 113 mg/dL (75-193) 01/27/18 14:37 HDL Cholesterol 43 mg/dL (23-92) 01/27/18 14:37 TSH 1.11 uIU/ml (0.34-5.60) 01/27/18 14:37 Urine Source CLEAN C 01/27/18 14:30 Urine Color YELLOW 01/27/18 14:30 Urine Clarity CLEAR (CLEAR) 01/27/18 14:30 Urine pH 6.0 (4.6 - 8.0) 01/27/18 14:30 Ur Specific [place] 1.025 (1.005-1.030) 01/27/18 14:30 Urine Protein NEGATIVE mg/dL (NEGATIVE) 01/27/18 14:30 Urine Glucose (UA) >=1000 mg/dL (NEGATIVE) H 01/27/18 14:30 Urine Ketones TRACE mg/dL (NEGATIVE) 01/27/18 14:30 Urine Blood NEGATIVE (NEGATIVE) 01/27/18 14:30 Urine Nitrate NEGATIVE (NEGATIVE) 01/27/18 14:30 Urine Bilirubin NEGATIVE (NEGATIVE) 01/27/18 14:30 Urine Urobilinogen 0.2 E.U./dL (0.2 - 1.0) 01/27/18 14:30 Ur Leukocyte Esterase NEGATIVE (NEGATIVE) 01/27/18 14:30 Urine RBC 0-2 /hpf (0-5) H 01/27/18 14:30 Urine WBC 0-2 /hpf (0-5) 01/27/18 14:30 Ur Epithelial Cells FEW /lpf (FEW) 01/27/18 14:30 Urine Bacteria FEW /hpf (NONE SEEN) 01/27/18 14:30 Urine Mucus FEW /lpf (FEW) 01/27/18 14:30 Urine Opiates Screen NEGATIVE (NEGATIVE) 01/27/18 14:30 Urine Methadone Screen NEGATIVE (NEGATIVE) 01/27/18 14:30 Ur Barbiturates Screen NEGATIVE (NEGATIVE) 01/27/18 14:30 Ur Tricyclics Screen NEGATIVE (NEGATIVE) 01/27/18 14:30 Ur Phencyclidine Scrn NEGATIVE (NEGATIVE) 01/27/18 14:30 Amphetamines Screen NEGATIVE (NEGATIVE) 01/27/18 14:30 U Methamphetamines Scrn NEGATIVE (NEGATIVE) 01/27/18 14:30 U Benzodiazepines Scrn NEGATIVE (NEGATIVE) 01/27/18 14:30 U Cocaine Metab Screen NEGATIVE (NEGATIVE) 01/27/18 14:30 U Cannabinoids Screen NEGATIVE (NEGATIVE) 01/27/18 14:30 - Physical Exam Vitals and I&O: Vital Signs Temp 98.2 F 02/06/18 11:11 Pulse 61 02/06/18 11:11 Resp 20 02/06/18 11:11 BP 147/76 02/06/18 11:11 Pulse Ox 97 02/06/18 11:11 Intake & Output 02/05/18 02/06/18 02/06/18 18:59 06:59 18:59 Intake Total 2400 300 Balance 2400 300 Intake: Oral 2400 300 Other: # Voids 5 2 # Bowel Movements 1 0 General: weak, demented HEENT: NC/AT, PERRLA Neck: Supple Lungs: CTAB Cardiovascular: RRR, Normal S1, Normal S2, without murmur Abdomen: soft, non-tender, non-distended, positive bowel sound Extremities: excoriation Neurological: no change, disorganized Internal Medicine Assmt/Plan - Assessment Assessment: - Assessment Assessment: agitation dm obesity hyponatremia low albumin htn cardiomegaly schizoaffective hdl - Plan Plan: fall precautions monitor bp closely cpm - Plan Plan: will add lantus in am incease to 14 Nutritional Asmnt/Malnutr-PDOC - Dietary Evaluation Malnutrition Findings (Please click <Entered> for more info): Nutritional Asmnt/Malnutrition Start: 01/28/18 14: 11 Text: Status: Complete Freq: Protocol: Document 01/28/18 14:11 LCHENG (Rec: 01/28/18 14:18 [email or web address] [email or web address]) Nutritional Asmnt/Malnutrition Patient General Information Nutritional Screening High Risk Consult Diagnosis increased agitation, psychosis Pertinent Medical Hx/Surgical Hx DM, depression, schizophrenia, bipolar, pschosis Subjective Information Pt seen in his room talking with doctor. Glucose 407 at admission noted. Pt is Irish speaking noted. Not able to provide nutrition education d/ t language barrier at this time. Current Diet Order/ Nutrition Support CCHo 60gm Pertinent Medications colace, pepcid, novolog, levemir, theragran, seroquel Pertinent Labs 01/28 POC [id number] 01/27 Na 133, Cr 1.4, glucose 407, POC 278-361 Nutritional Hx/Data Height 1.63 m Height (Calculated Centimeters) 162.6 Current Weight (lbs) 95.254 kg Weight (Calculated Kilograms) 95.3 Weight (Calculated Grams) 39965.4 [place] Body Weight 130 Body Mass Index (BMI) 36.0 Weight Status Obese GI Symptoms GI Symptoms None Last BM none noted Skin Integrity/Comment: intact Estimated Nutritional Goals BEE in Kcals: Adj wt of IBW Calories/Kcals/Kg 25-30 Kcals Calculated 8260-2662 Protein: Adj wt of IBW Protein g/k-1.2 Protein Calculated 68-82 Fluid: ml 1700-2040ml (1ml/kcal) Nutritional Problem 1. Problem Problem altered nutrition relatedl abs Etiology hx of DM, hyperlipidemia Signs/Symptoms: glucose 407, POC 278-367 Malnutrition Alert Is there a minimum of two criteria No selected? Query Text:Check all the applicable criteria. A minimum of two criteria are recommended for diagnosis of either severe or non-severe malnutrition. Malnutrition Related to Morbid Obesity Malnutrition related to morbid obesity No Intervention/Recommendation Comments 1. Continue with CCHO-60gm diet as ordered. MD to adjust insulin regimen for optimal glycemic control 2. Monitor PO intake, wt, labs and skin integrity 3. F/U as moderate risk in 3-5 days, 01/31-02/02, PO check 01/30 Expected Outcomes/Goals Expected Outcomes/Goals 1. PO intake to meet at least 75% of nutritional needs. 2. Wt stability, skin to remain intact, labs to approach WNL.
--- NOTE | 2018-02-06 21:07 | Progress Notes ---
DATE: 02/06/2018 PSYCHIATRIC PROGRESS NOTE SUBJECTIVE: Staff was spoken to. The patient is interviewed. Mood is noted to be anxious. Affect is appropriate. Not suicidal or homicidal. Insight and judgment are noted to be improving. Impulse control seems to be fair. No side effects to the medications are noted. The patient; however, has been getting into other people's rooms and trying to steal the food from there, but the patient could be redirected at this time. ASSESSMENT: The patient is stabilizing. PLAN: To discharge the patient today for follow up on an outpatient basis. JOB# [id number]
== END 2018-02-06 12:45 | DRG 885 ==
LOC: ER 14:25 → GERO 17:58
DX: F31.9 Bipolar disorder, unspecified (principal); N18.3 Chronic kidney disease, stage 3 (moderate); E87.1 Hypo-osmolality and hyponatremia; E66.9 Obesity, unspecified; E78.5 Hyperlipidemia, unspecified; F29 Unspecified psychosis not due to a substance or known physiological condition; E11.22 Type 2 diabetes mellitus with diabetic chronic kidney disease; E78.00 Pure hypercholesterolemia, unspecified; I13.10 Hypertensive heart and chronic kidney disease without heart failure, with stage 1 through stage 4 chronic kidney disease, or unspecified chronic kidney disease; Z79.4 Long term (current) use of insulin; Z68.36 Body mass index [BMI] 36.0-36.9, adult
CPT/HCPCS: 36415-UA; 71045-TC; 80053-TC; 80061-TC; 80307; 81001-TC; 82947-TC; 82948-90; 83036-90; 83735-TC; 84100-TC; 84443-TC; 85025-TC; 96374; G0410; J1815; Z7610